=== PATIENT | male | born 1955 | race Caucasian/White ===

== ENCOUNTER 2024-12-02 22:02 | Inpatient (IN) | payer MEDICARE, SELFPAY ==
[2024-12-02 22:18] VITALS: BP 142/71; PULSE 118; RESP 18; TEMP 36.7; O2SAT 95
[2024-12-02 22:34] LABS: Add Urine Microscopic? YES; Appearance Urine Clear (Clear); Bilirubin Urine Negative (Negative); Blood Urine 3+ (Negative); Color Urine Brown (Yellow); Glucose Urine UA 3+ (Negative); Ketones Urine Trace (Negative); Leukocyte Esterase Ur Trace LEU/UL (Negative); Nitrate Urine Positive (Negative); Protein Urine 3+ (Negative); pH Urine 6.5 (5.0-8.0)
--- NOTE | 2024-12-02 22:39 | PC.NURSE ---
DR MILLAN AT THE BEDSIDE SPEAKING WITH SISTER FOR PLAN OF CARE.
[2024-12-02 22:43] LABS: Bacteria Urine 2+ /hpf; RBC Urine >75 /hpf (0-2); Squamous Epithelial Cell Urine None seen /hpf (Few); WBC Urine >75 /hpf (0-3)
--- NOTE | 2024-12-02 22:45 | PC.NURSE ---
FAMILY MEMBER IS GOING TO GO HOME AND LOOK FOR MEDICATION LIST THAT IS IN PATIENT BELONGINGS
[2024-12-02] MEDS: Please add drug allergy info to patient profile. 1 EACH XX (22:46)
[2024-12-02] MEDS: SODIUM CHLORIDE 0.9% IV 1,000 ML 999 ML IV CONT (22:50)
--- NOTE | 2024-12-02 22:51 | PC.NURSE ---
toothbrush and toothpaste provided
[2024-12-02 23:00] LABS: Basophils Absolute Auto 0.04 K/mm3 (0.00-0.10); Basophils Percent Auto 0.4 % (0.0-1.0); Eosinophils Absolute Auto 0.32 K/mm3 (0.02-0.50); Eosinophils Percent Auto 3.1 % (1.0-6.0); Hematocrit 39.6 % (37.0-46.0); Hemoglobin 12.8 g/dL (12.4-15.3); Immature Granulocyte Absolute 0.03 K/mm3 (0.00-0.00); Immature Granulocyte Percent A 0.3 % (0.0-0.0); Lymphocytes Absolute Auto 1.62 K/mm3 (1.10-4.50); Lymphocytes Percent Auto 15.5 % (18.0-42.0); Mean Corpuscular HGB Conc 32.3 g/dL (32-36); Mean Corpuscular Hemoglobin 27.9 pg (27.0-31.0); Mean Corpuscular Volume 86.5 fL (78.0-102.0); Mean Platelet Volume 9.5 fl (8.7-11.0); Monocytes Absolute Auto 0.77 K/mm3 (0.10-0.90); Monocytes Percent Auto 7.4 % (2.0-11.0); Neutrophils Absolute Auto 7.64 K/mm3 (1.70-7.20); Neutrophils Percent Auto 73.3 % (50.0-70.0); Platelet Count Result 388 K/mm3 (150-420); Red Blood Count 4.58 M/mm3 (4.70-6.10); Red Cell Distribution Width 12.8 % (11.6-14.4); White Blood Count 10.4 K/mm3 (4.8-10.8)
[2024-12-02 23:05] VITALS: BP 160/89; PULSE 116; RESP 20; O2SAT 98
[2024-12-02 23:06] VITALS: BP 160/89; O2SAT 97
--- NOTE | 2024-12-02 23:06 | PC.NURSE ---
PATIENTS FACE AND TOMLINSON WERE CLEANED BY CELESTINA RIGGS. PATIENT WAS ABLE TO BRUSH HIS TEETH WELL WITH VENKAT HELP
--- NOTE | 2024-12-02 23:14 | ED.SKABFB ---
HPI - Skin/Abscess/Foreign Bdy General Chief complaint: Skin/Abscess/Foreign Body Stated complaint: bed sore Source: patient, family and EMS Mode of arrival: EMS Limitations: physical limitation and clinical condition History of Present Illness HPI narrative: this is a 69-year-old male with a history of stroke with left-sided weakness that occurred back in August patient has been informed and was in rehab center and [address] and he decided to sign out AMA and drove directly from [place] to [place], family had prepared lift and a hospital bed I did not arrive to the family's home. Patient has left-sided weakness from his stroke that occurred in August has a decubitus ulcer on the sacral area that is I looks clean stage II with no tracking. Patient is afebrile with no nausea vomiting no abdominal pain no chest pain no shortness of breath. Patient has an indwelling Avendaño and had a foul smell wellness Avendaño bag was changed. MD complaint: other Onset (ago): month(s) Severity: moderate Related Data Home Medications Medication Instructions Recorded Confirmed Last Taken Type acetaminophen 325 mg capsule 650 mg PO Q4-6H PRN pain 12/02/24 Unknown History amlodipine 10 mg tablet 10 mg PO DAILY 12/02/24 Unknown History aspirin 81 mg chewable tablet 81 mg PO DAILY 12/02/24 Unknown History (Carli Chewable Low Dose Aspirin) atorvastatin 40 mg tablet (Lipitor) 40 mg PO HS 12/02/24 Unknown History clopidogrel 75 mg tablet 75 mg PO DAILY 12/02/24 Unknown History gabapentin 300 mg capsule 300 mg PO BID 12/02/24 Unknown History insulin glargine 100 unit/mL (3 10 unit subcut DAILY 12/02/24 Unknown History mL) subcutaneous pen (Lantus Solostar U-100 Insulin) insulin lispro 100 unit/mL 1 sliding scale dose subcut 12/02/24 Unknown History subcutaneous solution (Humalog USEASDIRECTD U-100 Insulin) lisinopril 20 mg tablet 20 mg PO BID 12/02/24 Unknown History multivitamin with minerals (DAILY 1 tablet PO DAILY 12/02/24 Unknown History VITAMIN FORMULA-MINERALS tablet) nicotine 14 mg/24 hr daily 1 patch transdermal DAILY 12/02/24 Unknown History transdermal patch sennosides 8.6 mg-docusate sodium 1 tab-cap PO BID PRN constipation 12/02/24 Unknown History 50 mg tablet tramadol 50 mg tablet 50 mg PO Q6-8H PRN pain 12/02/24 Unknown History Allergies Allergy/AdvReac Type Severity Reaction Status Date / Time TIDE POWDER Allergy Intermediate Hives Uncoded 12/02/24 22:43 Review of Systems Review of Systems: All systems reviewed & are unremarkable except as noted in HPI and below PMFSH Past Medical History Medical History CVA (cerebral vascular accident) HTN (hypertension) HLD (hyperlipidemia) Diabetes mellitus Exam Const: General: no acute distress Nutritional Appearance: well nourished Orientation/consciousness: patient oriented x3 Limitations: no limitations HENMT: Head: normal to inspection Eyes: Conjunctivae: conjunctivae normal Neck: Neck: normal visual inspection Chest: Chest palpation & inspection: normal inspection of the chest Resp: Effort & Inspection: normal respiratory effort Auscultation: clear to auscultation bilaterally Cardio: Rate: tachycardic Rhythm: regular rhythm GI: Auscultation: normal bowel sounds Rectal Exam: normal sphincter tone : General: Yes bladder normal to palpation Urinary Catheter: Urinary Catheter: urine cloudy and urine dark Back/Spine/Pelvis: Back: no CVA tenderness Skin: Other: stage II decubitus ulcer with some no redness or erythema no drainage. Neuro: General: patient oriented x3 Extrem: General: normal to inspection and no clubbing, cyanosis or edema Course Course Emergency Course: Patient had blood work performed with CBC of and white blood cell count 10.4 had a UA performed which shows 2+ bacteria and greater than 75,000 white cells with leukocytes consistent with UTI and will start the patient on IV Levaquin. Blood cultures obtained IV fluids started and patient will it be admitted for urinary tract infection and rn social work to consult for possible placement are hospital bed to be sent to patient's and family's home. Vital Signs Vital signs: Vital Signs Temperature 36.7 C 12/02/24 22:18 Pulse Rate 118 H 12/02/24 22:18 Respiratory Rate 18 12/02/24 22:18 Blood Pressure 142/71 H 12/02/24 22:18 Pulse Oximetry 95 12/02/24 22:18 Oxygen Delivery Room Air 12/02/24 22:18 Temperature 36.7 C 12/02/24 22:18 Pulse Rate 116 H 12/02/24 23:05 Respiratory Rate 20 12/02/24 23:05 Blood Pressure 160/89 H 12/02/24 23:05 Pulse Oximetry 98 12/02/24 23:05 Oxygen Delivery Room Air 12/02/24 23:05 MDM - Skin/Abscess/Foreign Bdy Lab Data 12/02/24 22:55 12/02/24 22:55 Labs: Lab Results 12/02/24 12/02/24 Range/Units 22:23 22:55 WBC 10.4 (4.8-10.8) K/mm3 RBC 4.58 L (4.70-6.10) M/mm3 Hgb 12.8 (12.4-15.3) g/dL Hct 39.6 (37.0-46.0) % MCV 86.5 (78.0-102.0) fL MCH 27.9 (27.0-31.0) pg MCHC 32.3 (32-36) g/dL RDW 12.8 (11.6-14.4) % Plt Count 388 (150-420) K/mm3 MPV 9.5 (8.7-11.0) fl Immature Gran % (Auto) 0.3 H (0.0-0.0) % Neut % (Auto) 73.3 H (50.0-70.0) % Lymph % (Auto) 15.5 L (18.0-42.0) % Edwards % (Auto) 7.4 (2.0-11.0) % Eos % (Auto) 3.1 (1.0-6.0) % Baso % (Auto) 0.4 (0.0-1.0) % Lymph # (Auto) 1.62 (1.10-4.50) K/mm3 Edwards # (Auto) 0.77 (0.10-0.90) K/mm3 Eos # (Auto) 0.32 (0.02-0.50) K/mm3 Baso # (Auto) 0.04 (0.00-0.10) K/mm3 Abs Immat Gran (auto) 0.03 H (0.00-0.00) K/mm3 Absolute Neuts (auto) 7.64 H (1.70-7.20) K/mm3 Absolute Nucleated RBC 0.00 (0.00-0.00) K/mm3 Nucleated RBC % 0.0 (0-0.0) % Sodium Pending Potassium Pending Chloride Pending Carbon Dioxide Pending Anion Gap Pending BUN Pending Creatinine Pending Estim Creat Clear Calc Pending Estimated GFR Pending Glucose Pending Calculated Osmolality Pending Lactic Acid Pending Calcium Pending Total Bilirubin Pending AST Pending ALT Pending Alkaline Phosphatase Pending Total Protein Pending Albumin Pending Urine Color Brown A (Yellow) Urine Appearance Clear (Clear) Urine pH 6.5 (5.0-8.0) Ur Specific [place] 1.020 (1.010-1.020) Urine Protein 3+ H (Negative) Urine Glucose (UA) 3+ H (Negative) Urine Ketones Trace H (Negative) Ur Blood (Man) 3+ H (Negative) Urine Nitrate Positive H (Negative) Urine Bilirubin Negative (Negative) Urine Urobilinogen 1.0 (0.2-1.0) mg/dL Leukocyte Esterase Rfl Trace H (Negative) JOAN/UL Urine RBC >75 H (0-2) /hpf Urine WBC >75 H (0-3) /hpf Ur Squamous Epith Cells None seen (Few) /hpf Urine Bacteria 2+ H (None) /hpf Critical Care Time Critical Care Time Critical Care Time: No Discharge Plan Discharge Clinical Impression: Decubitus ulcer, Diabetes mellitus, UTI (urinary tract infection), Acute CVA (cerebrovascular accident) Patient Disposition: Acute Care Hospital Condition: Guarded Prognosis Patient Language: Danish Prescriptions: No Action acetaminophen 325 mg capsule 650 mg PO Q4-6H PRN (Reason: pain) insulin lispro [Humalog U-100 Insulin] 100 unit/mL solution 1 sliding scale dose subcut USEASDIRECTD amlodipine 10 mg tablet 10 mg PO DAILY aspirin [Carli Chewable Aspirin] 81 mg tablet,chewable 81 mg PO DAILY atorvastatin [Lipitor] 40 mg tablet 40 mg PO HS insulin glargine [Lantus Solostar U-100 Insulin] 100 unit/mL (3 mL) insulin pen 10 unit subcut DAILY clopidogrel 75 mg tablet 75 mg PO DAILY gabapentin 300 mg capsule 300 mg PO BID lisinopril 20 mg tablet 20 mg PO BID DAILY VITAMIN FORMULA-MINERALS Tablet 1 tablet PO DAILY nicotine 14 mg/24 hr patch 24 hour 1 patch transdermal DAILY sennosides-docusate sodium 8.6-50 mg tablet 1 tab-cap PO BID PRN (Reason: constipation) tramadol 50 mg tablet 50 mg PO Q6-8H PRN (Reason: pain) Follow-up/Referrals: Emmanuel Graff DO [Primary Care Provider] -
[2024-12-02 23:15] LABS: Alanine Aminotransferase 17 U/L (6-50); Albumin Level 3.6 g/dL (3.5-5.1); Alkaline Phosphatase 139 U/L (38-126); Anion Gap 3 mmol/L (4-12); Aspartate Amino Transferase 26 U/L (17-59); Bilirubin,Total 0.5 mg/dL (0.2-1.3); Blood Urea Nitrogen 20 mg/dL (9-20); Calcium 9.6 mg/dL (8.4-10.2); Carbon Dioxide 29 mmol/L (22-30); Chloride 103 mmol/L (98-107); Estimated CRCL calculation 73 ml/min; Estimated Glomerular Filt Rate > 60; Glucose 388 mg/dL (65-110); Osmolality Calculated 298 mOsm/kg (285-295); Potassium 4.3 mmol/L (3.4-5.0); Sodium 135 mmol/L (137-145); Total Protein 6.9 g/dL (6.3-8.2)
[2024-12-02 23:19] LABS: Lactic Acid Reflex 2.8 mmol/L (0.4-2.0)
[2024-12-02] MEDS: levoFLOXacin 500 MG/D5W 100 ML 500 MG/100 ML BAG 100 MG IVPB (23:41)
[2024-12-02] MEDS: LIDOCAINE 2% GEL UROJET 10 ML PKG MUCOUS MEM (23:43)
[2024-12-03 00:02] VITALS: BP 151/88; PULSE 117; RESP 20; O2SAT 97
[2024-12-03 00:05] VITALS: BMI 26.6
--- NOTE | 2024-12-03 00:05 | PC.NURSE ---
PATIENT HAD 3 WAY, 24F ARCHU[address]TA IN PLACE THAT PATIENT HAS BEEN SINCE AUGUST OF THIS YEAR. ARCHULETA CATHETER REMOVED AND NEW CATHETER PLACED
[2024-12-03 00:16] VITALS: BP 133/75; PULSE 117; RESP 16; O2SAT 95
[2024-12-03 00:31] VITALS: BP 141/79; PULSE 108; RESP 18; O2SAT 97
[2024-12-03 00:40] LABS: Reflex Lactic Acid Yes or No No Lactic Reflex
[2024-12-03 00:46] VITALS: BP 141/79; PULSE 108; RESP 18; O2SAT 97
[2024-12-03] MEDS: NICOTINE (*PBKC) 14 MG PATCH 1 PATCH TRANSDERM ×2 (01:17→09:29)
[2024-12-03] MEDS: SODIUM CHLORIDE 0.9% IV 1,000 ML 100 ML IV CONT ×3 (01:17→21:20)
--- NOTE | 2024-12-03 01:33 | ADMGEN ---
This patient, José Hargrove, was admitted to 2nd Floor Room 207-2. Patient/family oriented to hospital policies and general routines including ID bracelet, bed and alarms, visiting hours, pain management, procedures, bathroom and other care routines, personal items, smoking policy, room service/diet, and visiting hours. Information on how to activate the Rapid Response Team has been discussed. Patient/Family are encouraged to report perceived risks to care and to ask questions if they do not understand what they are told or what they should do.
--- NOTE | 2024-12-03 02:28 | PC.NURSE ---
Original weight is from ER where patient stated his weight and admission weight is from built in bed scale.
[2024-12-03 05:34] LABS: Basophils Absolute Auto 0.02 K/mm3 (0.00-0.10); Basophils Percent Auto 0.2 % (0.0-1.0); Eosinophils Absolute Auto 0.49 K/mm3 (0.02-0.50); Eosinophils Percent Auto 4.9 % (1.0-6.0); Hematocrit 35.4 % (37.0-46.0); Hemoglobin 11.4 g/dL (12.4-15.3); Immature Granulocyte Absolute 0.03 K/mm3 (0.00-0.00); Immature Granulocyte Percent A 0.3 % (0.0-0.0); Lymphocytes Absolute Auto 1.88 K/mm3 (1.10-4.50); Lymphocytes Percent Auto 18.7 % (18.0-42.0); Mean Corpuscular HGB Conc 32.2 g/dL (32-36); Mean Corpuscular Hemoglobin 27.9 pg (27.0-31.0); Mean Corpuscular Volume 86.8 fL (78.0-102.0); Mean Platelet Volume 9.2 fl (8.7-11.0); Monocytes Absolute Auto 0.83 K/mm3 (0.10-0.90); Monocytes Percent Auto 8.3 % (2.0-11.0); Neutrophils Percent Auto 67.6 % (50.0-70.0); Platelet Count Result 339 K/mm3 (150-420); Red Blood Count 4.08 M/mm3 (4.70-6.10); Red Cell Distribution Width 12.7 % (11.6-14.4); White Blood Count 10.1 K/mm3 (4.8-10.8)
[2024-12-03 05:51] LABS: Alanine Aminotransferase 11 U/L (6-50); Albumin Level 3.1 g/dL (3.5-5.1); Alkaline Phosphatase 111 U/L (38-126); Anion Gap 2 mmol/L (4-12); Aspartate Amino Transferase 20 U/L (17-59); Bilirubin,Total 0.4 mg/dL (0.2-1.3); Blood Urea Nitrogen 16 mg/dL (9-20); Calcium 9.4 mg/dL (8.4-10.2); Carbon Dioxide 29 mmol/L (22-30); Chloride 106 mmol/L (98-107); Estimated CRCL calculation 67 ml/min; Estimated Glomerular Filt Rate > 60; Glucose 248 mg/dL (65-110); Osmolality Calculated 293 mOsm/kg (285-295); Potassium 4.4 mmol/L (3.4-5.0); Sodium 137 mmol/L (137-145); Total Protein 6.2 g/dL (6.3-8.2)
[2024-12-03 05:53] LABS: Lactic Acid Reflex 1.6 mmol/L (0.4-2.0)
[2024-12-03 08:00] VITALS: BP 117/60; PULSE 103; RESP 16; TEMP 36.9; O2SAT 95
--- NOTE | 2024-12-03 08:30 | PC.NURSE ---
While attempting to obtain a urine specimen from azul catheter, catheter began to slip out of penis. Azul catheter was advanced into place. The bulb was checked for fluid and there was none to be aspirated. The bulb was then filled with 10 cc of normal saline and attempt was made to remove the saline. No saline was able to be aspirated. The azul catheter was then removed and replaced with a three way 24 fr azul catheter. After new catheter, azul was patent and draining. Urine sample obtained and sent to lab.
[2024-12-03] MEDS: lisinopriL 20 MG TABLET PO ×2 (09:25→20:09)
[2024-12-03] MEDS: GABAPENTIN 300 MG CAPSULE PO (09:25)
[2024-12-03] MEDS: ASPIRIN 81 MG CHEWABLE TABLET PO (09:26)
[2024-12-03] MEDS: THERAPEUTIC MULTIVITAMINS/MINERALS TAB (*BKC) 1 TABLET PO (09:26)
[2024-12-03] MEDS: CLOPIDOGREL BISULFATE 75 MG TABLET PO (09:26)
[2024-12-03] MEDS: amLODIPine BESYLATE 5 MG TABLET 10 MG PO (09:27)
[2024-12-03] MEDS: INSULIN HUMAN LISPRO (*BKC) 1,000 UNITS/10 ML VIAL SUB-Q ×2 (09:28→12:54)
[2024-12-03] MEDS: INSULIN GLARGINE (*BKC) 1,000 UNITS/10 ML VIAL 10 UNITS SUB-Q (09:28)
--- OUTSIDE RECORDS SUMMARY | 2024-12-03 09:49 | XMS_ITS | Continuity of Care Document ---
Author Name [facility] Organization [facility] Care Team Providers Care Construction Controller Name Role Phone [facility] Unavailable Unavailable Problems Combined list of problems from Department of [facility] and [facility] facilities. It does not include entries that were removed or entered in error. 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 [facility] Obesity (SNOMED CT 493364200) Active Condition [facility] Refractive error Active Condition [facility] Tear film insufficiency Active Condition [facility] Tobacco use (SNOMED CT 940063593) Active Condition Apr 07, 2020 Entered By: ASHLEIGH DANG Comment: 30+ pack year smoker, switched to vaping January 2020 [facility] Hyperglycemia * (ICD-9-CM 790.29) Inactive Condition 12/08/2015 [facility] Mechanical low back pain Inactive Condition 12/08/2015 [facility] Other and unspecified hyperlipidemia (ICD-9-CM 272.4) Inactive Condition 12/08/2015 [facility] Allergies, Adverse Reactions, Alerts Combined list of allergies from Department of [facility] and [facility] facilities. It does not include entries that were removed or entered in error. Substance Category Reaction Severity Reaction type Status Date Reported Comments Source METFORMIN Propensity to adverse reactions to drug (finding) Indigestion active 2 [facility] [place] TIDE LAUNDRY DETERGENT Propensity to adverse reaction (finding) Urticaria active 2 [facility] [place] Immunizations Combined list of available immunizations from the Department of Defense and Veterans Affairs facilities. Immunization Series Date Given Administered By Site Reaction Lot Number CVX Code Drug Assembler Gold Frame Status Comments Source PNEUMOCOCCAL POLYSACCHARID E PPV23 2014 33 complet [facility] PNEUMOCOCCAL, UNSPECIFIED FORMULATION 2014 109 complet [facility] FLU,3 YRS (HISTORICAL) 2013 88 complet [facility] TD(ADULT) UNSPECIFIED FORMULATION 2011 139 complet [facility] Encounters Combined list of: 1) Encounters from Department of Veterans Affairs facilities going backup to the last 18 months, not all [place] inpatient encounters are included; 2) Encounters from the Department of [facility] facilities going backup to 280 months. Location Location Details Encounter Type Encounter Number Reason For Visit Attending Provider ADM Date DC Date Status Disposition Source [facility] Outpatient Encounter [id number] 08/17 [facility] Outpatient Encounter [id number] 08/27 [facility] Outpatient Encounter [id number] 10/01 [facility] Outpatient Encounter [id number] Dimple ONEILL 10/04 [facility] Outpatient Encounter [id number] 10/04 [facility] Social History Combined list of available smoking, tobacco, and other social history from Department of Defense and Veterans Affairs facilities. Social History Type Response Date Comment Sourc e Tobacco smoking status NHIS [facility]-VAAES TOBACCO USE CURRENT NRT ACCEPT 08/11/2021 [facility] 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
--- NOTE | 2024-12-03 09:50 | P.HP_ITS ---
H&P: HPI History of Present Illness Date/Time: 12/03/24 09:50 Chief Complaint: Chronic indwelling Avendaño catheter malfunction/ sacral wounds Narrative: Patient is a 61-year-old male who presented to [facility] emergency department via family with complaints of malfunction of his Avendaño catheter as well as sacral wounds and inability to care for patient at home. Per patient he was residing in [place] at a long term and rehab after he sustained a acute CVA causing his left side to be flaccid as well as urinary complications at which time he also developed a sacral wound due to being bed-bound. Per report from patient his sister initially had plan to have him stay with her but when attempting to get a medical bed with trapeze and medical equipment she was unsuccessful. family had went to [place] and signed patient out AMA from the rehab facility and brought him back up to [facility] once they brought him back to their home they found that could not care for him and he was brought to the em ergency department. patient's initial labs unremarkable however was found to have an odorous, cloudy with clots noted in his Avendaño catheter and UA was suspicious for urinary tract infection. sacral wound had clean borders with granulation no signs of acute infection patient afebrile and normal WBC. Avendaño catheter was exchanged on stairs and patient was admitted to the medical unit for further evaluation and treatment. patient reports past medical history of CVA, hypertension and diabetes. patient denied any chest pain shortness a breath, nausea, vomiting, abdominal pain, visual changes but did report moderate pain to left side and sacral area. Review of Systems Review of Systems: All systems reviewed & are unremarkable except as noted in HPI and below PMFSH Past Medical History Medical History CVA (cerebral vascular accident) HTN (hypertension) HLD (hyperlipidemia) Diabetes mellitus Family History Family History Other Unknown family medical history Social History Social History Years smoked: 50 Smoking status: Current every day smoker Tobacco type: cigarettes Alcohol intake: former Substance use: never Substance use type: does not use Do You Feel Safe in your Home?: Yes Lack of Transportation: No Lack of Food: Sometimes True Current Housing: I Have Housing Concerned About Future Housing: No Difficulty Paying Gas/Electric Bills: No Difficulty Paying for Meds: No Currently Unemployed: No Education: High School Diploma/GED Difficulty w/ Childcare or Family Care: No Spiritual care concerns: No Meds Home Medications and Allergies Home Medications Medication Instructions Recorded Confirmed Type acetaminophen 325 mg capsule 650 mg PO Q4-6H PRN pain 12/02/24 12/03/24 History amlodipine 10 mg tablet 10 mg PO DAILY 12/02/24 12/03/24 History aspirin 81 mg chewable tablet 81 mg PO DAILY 12/02/24 12/03/24 History (Carli Chewable Low Dose Aspirin) atorvastatin 40 mg tablet (Lipitor) 40 mg PO HS 12/02/24 12/03/24 History clopidogrel 75 mg tablet 75 mg PO DAILY 12/02/24 12/03/24 History gabapentin 300 mg capsule 300 mg PO BID 12/02/24 12/03/24 History insulin glargine 100 unit/mL (3 10 unit subcut DAILY 12/02/24 12/03/24 History mL) subcutaneous pen (Lantus Solostar U-100 Insulin) insulin lispro 100 unit/mL 1 sliding scale dose subcut 12/02/24 12/03/24 History subcutaneous solution (Humalog USEASDIRECTD U-100 Insulin) lisinopril 20 mg tablet 20 mg PO BID 12/02/24 12/03/24 History multivitamin with minerals (DAILY 1 tablet PO DAILY 12/02/24 12/03/24 History VITAMIN FORMULA-MINERALS tablet) nicotine 14 mg/24 hr daily 1 patch transdermal DAILY 12/02/24 12/03/24 History transdermal patch sennosides 8.6 mg-docusate sodium 1 tab-cap PO BID PRN constipation 12/02/24 12/03/24 History 50 mg tablet tramadol 50 mg tablet 50 mg PO Q6-8H PRN pain 12/02/24 12/03/24 History Allergies Allergy/AdvReac Type Severity Reaction Status Date / Time TIDE POWDER Allergy Intermediate Hives Uncoded 12/02/24 22:43 Vital Signs Vital Signs - 24 hr 12/02/24 22:18 12/02/24 23:05 12/02/24 23:06 Temperature 98.0 F Pulse Rate 118 H 116 H Respiratory Rate 18 20 Blood Pressure 142/71 H 160/89 H 160/89 H Pulse Oximetry 95 98 97 Oxygen Delivery Room Air Room Air 12/03/24 00:02 12/03/24 00:16 12/03/24 00:31 Temperature Pulse Rate 117 H 117 H 108 H Respiratory Rate 20 16 18 Blood Pressure 151/88 H 133/75 141/79 H Pulse Oximetry 97 95 97 Oxygen Delivery Room Air Room Air Room Air 12/03/24 00:46 Temperature Pulse Rate 108 H Respiratory Rate 18 Blood Pressure 141/79 H Pulse Oximetry 97 Oxygen Delivery Room Air Exam Const: General: comfortable and no acute distress HENMT: Ears: TM's normal bilaterally Face/Nose/Sinus: Normal nares present Mouth: Yes moist mucous membranes Eyes: General: appearance normal, both eyes and all related structures Sclera: sclerae normal Pupils: Equal, round and reactive pupils present EOM: EOMs intact bilaterally Neck: Neck: supple and no JVD Resp: Effort & Inspection: normal respiratory effort Auscultation: clear to auscultation bilaterally Cardio: Rate: regular rate GI: GI Palp: Yes Soft to palpation Auscultation: normal bowel sounds : General: Yes bladder normal to palpation Urinary Catheter: Urinary Catheter: urine cloudy, urine red and urine with clots Skin: General skin exam: normal color Wounds: no wounds Neuro: Speech: normal speech Motor exam (neuro): Abnormal motor strength present Other: patient with left-sided weakness to lower extremity and flaccid left arm post CVA Extrem: General: normal to inspection Psych: Mental Status: mental status grossly normal Affect: normal affect H&P: Results Labs Labs: Short CBC 12/02/24 12/03/24 Range/Units 22:55 05:30 WBC 10.4 10.1 (4.8-10.8) K/mm3 Hgb 12.8 11.4 L (12.4-15.3) g/dL Hct 39.6 35.4 L (37.0-46.0) % Plt Count 388 339 (150-420) K/mm3 [facility] 12/02/24 12/03/24 22:55 05:30 Sodium 135 L 137 Potassium 4.3 4.4 Chloride 103 106 Carbon Dioxide 29 29 BUN 20 16 Creatinine 1.08 1.03 Glucose 388 H 248 H Calcium 9.6 9.4 Liver Function 12/02/24 12/03/24 Range/Units 22:55 05:30 Total Bilirubin 0.5 0.4 (0.2-1.3) mg/dL AST 26 20 (17-59) U/L ALT 17 11 (6-50) U/L Alkaline Phosphatase 139 H 111 (38-126) U/L Albumin 3.6 3.1 L (3.5-5.1) g/dL Urine 12/02/24 Range/Units 22:23 Urine Color Brown A (Yellow) Urine Appearance Clear (Clear) Urine pH 6.5 (5.0-8.0) Ur Specific [place] 1.020 (1.010-1.020) Urine Protein 3+ H (Negative) Urine Glucose (UA) 3+ H (Negative) Assessment and Plan Assessment and plan (1) UTI (urinary tract infection): Qualifiers: Encounter type: subsequent encounter Indwelling urinary catheter type: indwelling urethral catheter Urinary tract infection type: catheter-associated UTI Qualified Code(s): T83.511D - Infection and inflammatory reaction due to indwelling urethral catheter, subsequent encounter; N39.0 - Urinary tract infection, site not specified Code(s): N39.0 - Urinary tract infection, site not specified Status: Acute Assessment and Plan: patient with chronic indwelling Avendaño catheter on arrival was cloudy with clots hematuria, and odorous smell patient reports not been changed since August. Initial Avendaño exchange done in the emergency department but was still leaking around catheter replaced with a 24 [place]i three-way will need intermittent flushing to clear clots. no previous urinalysis evaluation * urine showed brown in color 3+ protein 3+ glucose 3+ blood nitrate positive, trace leukocyte greater than 75 WBC and 2+ bacteria * received dose of Levaquin in the ED * switch patient to Rocephin IV at this time pending cultures and sensitivities * blood cultures pending * Will need new Urologist at discharge (2) Decubitus ulcer: Qualifiers: Laterality: unspecified laterality Pressure injury location: buttock Pressure injury stage: stage 2 Qualified Code(s): L89.302 - Pressure ulcer of unspecified buttock, stage 2 Code(s): L89.90 - Pressure ulcer of unspecified site, unspecified stage Status: Acute Assessment and Plan: patient with stage II decubitus ulcer good granulation does not appear to be infected * Q 2 turns, offloading * alleyevn pad change daily or when soiled * wound consult was placed however we do not have wound and house will need to make an appointment at the outside Wound Clinic * blood sugar control for wound healing * Pain control (3) CVA (cerebral vascular accident): Code(s): I63.9 - Cerebral infarction, unspecified Status: Acute Assessment and Plan: patient suffered a acute CVA in August causing left-sided lower extremity weakness and flaccid left upper arm he states he has been bed-bound since then * continued ASA, Plavix, statin (4) HTN (hypertension): Code(s): I10 - Essential (primary) hypertension Status: Acute Assessment and Plan: * continue patient's amlodipine and lisinopril * monitor BP per unit protocol (5) HLD (hyperlipidemia): Code(s): E78.5 - Hyperlipidemia, unspecified Status: Acute Assessment and Plan: * resume atorvastatin (6) Diabetes mellitus: Code(s): E11.9 - Type 2 diabetes mellitus without complications Status: Acute Assessment and Plan: * continue patient's 10 unit long-acting insulin * moderate SSI * Accu-Cheks a.c. HS * hypoglycemic protocol * diabetic diet Plan Code status: Full code per patient DVT prophylaxis: SCD's Stress ulcer prophylaxis: Protonix 40 daily PT/OT notes: PT/OT for placement Disposition: patient continues admission to the medical unit for further evaluation and treatment of urinary tract infection and sacral wound PT/OT has been ordered care coordination assisting with long-term placement PT OT pending. Quality VTE Prophylaxis VTE prophylaxis: mechanical ordered -Patient's previous records reviewed on admission -ER notes reviewed in detail on admission -discussed all findings and current treatment plan with patient/Family/POA -Consultations reviewed for recommendations -Patient's disposition for safe discharge discussed with case filler Dictation performed by [employer] direct speech recognition software, therefore mounted police officer variants and typographical errors may occur. Hospitalist MIPS Advance Care Plan I have confirmed that the patient's Advanced Care Plan is present, code status is documented, or surrogate decision maker is listed in patient medical record.: Yes Medication Reconciliation I have utilized all available resources to obtain, update and review the patients current medications (includes all prescriptions, OTC, herbals, cannabis, and nutritional supplements).: Yes The patient is not eligible for med reconciliation; the patient is in a emergent medical situation where delaying treatment would jeopardize the patients health.: No
[2024-12-03 11:09] LABS: Add Urine Microscopic? YES; Appearance Urine Cloudy (Clear); Bilirubin Urine Negative (Negative); Blood Urine 3+ (Negative); Color Urine Brown (Yellow); Glucose Urine UA 3+ (Negative); Ketones Urine Negative (Negative); Leukocyte Esterase Ur 1+ LEU/UL (Negative); Nitrate Urine Negative (Negative); Protein Urine 2+ (Negative); Specific Grav Ur 1.025 (1.010-1.020); Urobilinogen Urine 0.2 mg/dL (0.2-1.0); pH Urine 5.5 (5.0-8.0)
[2024-12-03 11:17] LABS: Bacteria Urine 1+ /hpf; RBC Urine >100 /hpf (0-2); Squamous Epithelial Cell Urine Few /hpf (Few); WBC Urine 21-30 /hpf (0-3)
[2024-12-03 11:55] LABS: Glucose Point of Care 236 mg/dl (65-105)
[2024-12-03 16:00] VITALS: BP 150/72; PULSE 78; RESP 17; TEMP 36.7; O2SAT 97
[2024-12-03 17:06] LABS: Glucose Point of Care 190 mg/dl (65-105)
[2024-12-03] MEDS: ATORVASTATIN 40 MG TABLET PO (20:09)
[2024-12-03] MEDS: traMADol HCL (*CRX) 50 MG TABLET PO (20:09)
[2024-12-03 20:12] LABS: Glucose Point of Care 129 mg/dl (65-105)
--- NOTE | 2024-12-03 20:14 | PC.NURSE ---
PATIENT WAS REPOSITIONED FOR COMFORT FROM HIS RIGHT SIDE TO HIS BACK. CALL LIGHT IN REACH
--- NOTE | 2024-12-03 21:58 | PC.NURSE ---
PATIENT REPOSITIONED TO HIS LEFT SIDE. DENIES ANY NEEDS. CALL LIGHT IN REACH
[2024-12-04] VITALS: BP 129/71; PULSE 79; RESP 16; TEMP 36.3; O2SAT 97
[2024-12-04 05:26] LABS: Hematocrit 35.2 % (37.0-46.0); Hemoglobin 11.1 g/dL (12.4-15.3); Mean Corpuscular HGB Conc 31.5 g/dL (32-36); Mean Corpuscular Hemoglobin 27.8 pg (27.0-31.0); Mean Corpuscular Volume 88.2 fL (78.0-102.0); Mean Platelet Volume 9.5 fl (8.7-11.0); Platelet Count Result 316 K/mm3 (150-420); Red Blood Count 3.99 M/mm3 (4.70-6.10); White Blood Count 6.9 K/mm3 (4.8-10.8)
[2024-12-04 05:40] LABS: Alanine Aminotransferase 9 U/L (6-50); Albumin Level 2.8 g/dL (3.5-5.1); Alkaline Phosphatase 96 U/L (38-126); Anion Gap -1 mmol/L (4-12); Aspartate Amino Transferase 19 U/L (17-59); Bilirubin,Total 0.5 mg/dL (0.2-1.3); Blood Urea Nitrogen 11 mg/dL (9-20); Calcium 9.1 mg/dL (8.4-10.2); Carbon Dioxide 28 mmol/L (22-30); Chloride 109 mmol/L (98-107); Estimated CRCL calculation 76 ml/min; Estimated Glomerular Filt Rate > 60; Glucose 114 mg/dL (65-110); Osmolality Calculated 282 mOsm/kg (285-295); Potassium 3.8 mmol/L (3.4-5.0); Sodium 136 mmol/L (137-145); Total Protein 5.7 g/dL (6.3-8.2)
[2024-12-04] MEDS: SODIUM CHLORIDE 0.9% IV 1,000 ML 100 ML IV CONT ×2 (06:27→16:25)
[2024-12-04 08:00] VITALS: BP 154/67; PULSE 96; RESP 18; TEMP 36.6; O2SAT 97
[2024-12-04] MEDS: GABAPENTIN 300 MG CAPSULE PO ×2 (08:57→16:27)
[2024-12-04] MEDS: NICOTINE (*PBKC) 14 MG PATCH 1 PATCH TRANSDERM (08:57)
[2024-12-04] MEDS: lisinopriL 20 MG TABLET PO ×2 (08:58→20:55)
[2024-12-04] MEDS: amLODIPine BESYLATE 5 MG TABLET 10 MG PO (08:58)
[2024-12-04] MEDS: DOCUSATE SODIUM 100 MG CAPSULE PO (08:58)
[2024-12-04] MEDS: ASPIRIN 81 MG CHEWABLE TABLET PO (08:58)
[2024-12-04] MEDS: CLOPIDOGREL BISULFATE 75 MG TABLET PO (08:58)
[2024-12-04] MEDS: THERAPEUTIC MULTIVITAMINS/MINERALS TAB (*BKC) 1 TABLET PO (09:12)
[2024-12-04] MEDS: INSULIN GLARGINE (*BKC) 1,000 UNITS/10 ML VIAL 10 UNITS SUB-Q (09:12)
--- NOTE | 2024-12-04 11:32 | P.PNIM_ITS ---
Progress Note: A&P Assessment and Plan (1) UTI (urinary tract infection): Qualifiers: Encounter type: subsequent encounter Indwelling urinary catheter type: indwelling urethral catheter Urinary tract infection type: catheter-associated UTI Qualified Code(s): T83.511D - Infection and inflammatory reaction due to indwelling urethral catheter, subsequent encounter; N39.0 - Urinary tract infection, site not specified Code(s): N39.0 - Urinary tract infection, site not specified Status: Acute Assessment and Plan: patient with chronic indwelling Avendaño catheter on arrival was cloudy with clots hematuria, and odorous smell patient reports not been changed since August. Initial Avendaño exchange done in the emergency department but was still leaking around catheter replaced with a 24 Lithuanian three-way will need intermittent flushing to clear clots. no previous urinalysis evaluation * urine showed brown in color 3+ protein 3+ glucose 3+ blood nitrate positive, trace leukocyte greater than 75 WBC and 2+ bacteria * received dose of Levaquin in the ED * switch patient to Rocephin IV at this time pending cultures and sensitivities * blood cultures pending * Will need new Urologist at discharge (2) Decubitus ulcer: Qualifiers: Laterality: unspecified laterality Pressure injury location: buttock Pressure injury stage: stage 2 Qualified Code(s): L89.302 - Pressure ulcer of unspecified buttock, stage 2 Code(s): L89.90 - Pressure ulcer of unspecified site, unspecified stage Status: Acute Assessment and Plan: patient with stage II decubitus ulcer good granulation does not appear to be infected * Q 2 turns, offloading * alleyevn pad change daily or when soiled * wound consult was placed however we do not have wound and house will need to make an appointment at the outside Wound Clinic * blood sugar control for wound healing * Pain control (3) CVA (cerebral vascular accident): Code(s): I63.9 - Cerebral infarction, unspecified Status: Acute Assessment and Plan: patient suffered a acute CVA in August causing left-sided lower extremity weakness and flaccid left upper arm he states he has been bed-bound since then * continued ASA, Plavix, statin (4) HTN (hypertension): Code(s): I10 - Essential (primary) hypertension Status: Acute Assessment and Plan: * continue patient's amlodipine and lisinopril * monitor BP per unit protocol (5) HLD (hyperlipidemia): Code(s): E78.5 - Hyperlipidemia, unspecified Status: Acute Assessment and Plan: * resume atorvastatin (6) Diabetes mellitus: Code(s): E11.9 - Type 2 diabetes mellitus without complications Status: Acute Assessment and Plan: * continue patient's 10 unit long-acting insulin * moderate SSI * Accu-Cheks a.c. HS * hypoglycemic protocol * diabetic diet Plan Code status: Full code per patient DVT prophylaxis: SCD's Stress ulcer prophylaxis: Protonix 40 daily PT/OT notes: PT/OT for placement Disposition: patient continues admission to the medical unit for further evaluation and treatment of urinary tract infection and sacral wound PT/OT has been ordered care coordination assisting with long-term placement PT OT pending. Patient could benefit from core training and being taught how to use a trapezes. Subjective Date/time seen: 12/04/24 11:32 Interval history: Patient is not having any pain left side remain flaccid . family would like to take patient home although he is need of core training and possible being taught to pull homself . Exam Const: General: comfortable, no acute distress and well nourished Nutritional Appearance: well nourished Orientation/consciousness: patient oriented x3 Limitations: no limitations HENMT: Head: normal to inspection Ears: TM's normal bilaterally Face/Nose/Sinus: Normal nares present Mouth: Yes moist mucous membranes Eyes: General: appearance normal, both eyes and all related structures Conjunctivae: conjunctivae normal Sclera: sclerae normal Pupils: Equal, round and reactive pupils present EOM: EOMs intact bilaterally Neck: Neck: normal visual inspection, supple and no JVD Chest: Chest palpation & inspection: normal inspection of the chest Resp: Effort & Inspection: normal respiratory effort Auscultation: clear to auscultation bilaterally Cardio: Rate: regular rate and tachycardic Rhythm: regular rhythm GI: Auscultation: normal bowel sounds Rectal Exam: normal sphincter tone : General: Yes bladder normal to palpation and Yes no CVA tenderness Other: Avendaño catheter Urinary Catheter: Urinary Catheter: urine cloudy, urine red and urine with clots Back/Spine/Pelvis: Back: no CVA tenderness Skin: General skin exam: normal color Wounds: no wounds Other: stage II decubitus ulcer with some no redness or erythema no drainage. Neuro: General: patient oriented x3 Cranial nerves: Yes Equal, round and reactive pupils present Speech: normal speech Motor exam (neuro): Abnormal motor strength present Other: patient with left-sided weakness to lower extremity and flaccid left arm post CVA Extrem: General: normal to inspection and no clubbing, cyanosis or edema Psych: Mental Status: mental status grossly normal Affect: normal affect Objective Data Vital Signs Vital Signs: Vital Signs - 24 hr 12/03/24 16:00 12/04/24 00:00 12/04/24 08:00 Temperature 98.1 F 97.4 F L 97.9 F Pulse Rate 78 79 96 Respiratory Rate 17 16 18 Blood Pressure 150/72 H 129/71 154/67 H Pulse Oximetry 97 97 97 Oxygen Delivery Room Air Room Air Room Air Intake/Output Intake/Output: Intake & Output 12/01/24 12/02/24 12/03/24 12/04/24 23:59 23:59 23:59 23:59 Intake Total 3868.3 1580.0 Output Total 850 650 Balance 3018.3 930.0 Meds/Results Medications: Active Medications Generic Name Dose Route Start Last Admin Trade Name Freq PRN Reason Stop Dose Admin Acetaminophen 650 mg 12/02/24 23:28 Acetaminophen 325 Mg Tablet PO Q4-6H PRN pain 1-3 Amlodipine Besylate 10 mg 12/03/24 09:00 12/04/24 08:58 Amlodipine Besylate 5 Mg Tablet PO 10 mg DAILY MORALES Administration Aspirin 81 mg 12/03/24 08:00 12/04/24 08:58 Aspirin 81 Mg Chewable Tablet PO 81 mg DAILY@0800 MORALES Administration Atorvastatin Calcium 40 mg 12/03/24 21:00 12/03/24 20:09 Atorvastatin 40 Mg Tablet PO 40 mg HS MORALES Administration Clopidogrel Bisulfate 75 mg 12/03/24 09:00 12/04/24 08:58 Clopidogrel Bisulfate 75 Mg Tablet PO 75 mg DAILY MORALES Administration Dextrose 12.5 gm 12/02/24 23:28 Dextrose 50% 25 Gm/50 Ml Syringe IV PUSH PRN PRN Hypoglycemia Protocol Docusate Sodium 100 mg 12/03/24 09:00 12/04/24 08:58 Docusate Sodium 100 Mg Capsule PO 100 mg BID MORALES Administration Gabapentin 300 mg 12/03/24 09:00 12/04/24 08:57 Gabapentin 300 Mg Capsule PO 300 mg BID MORALES Administration Glucagon 1 mg 12/02/24 23:28 Glucagon For Inj 1 Mg Vial IM PRN PRN Hypoglycemia Protocol Glucose 15 gm 12/02/24 23:28 Glucose Oral Gel 15 Gm Of Glucse In 37.5 Gm Tube PO PRN PRN Hypoglycemia Protocol Sodium Chloride 1,000 mls @ 100 mls/hr 12/02/24 23:25 12/04/24 06:27 Normal Saline Iv IV CONT 100 mls/hr .Q10H MORLAES Administration Dextrose 1,000 mls @ 100 mls/hr 12/02/24 23:28 Dextrose 5% 1,000 Ml IVPB PRN PRN Hypoglycemia Protocol Ceftriaxone Sodium 1 gm in 50 mls @ 100 mls/hr 12/03/24 08:00 12/04/24 09:27 Rocephin 1 Gm/Ns 50 Ml IVPB Infused Q24H MORALES Infusion Insulin Glargine 10 units 12/03/24 09:00 12/04/24 09:12 Insulin Glargine (*Bkc) 1,000 Units/10 Ml Vial SUB-Q 10 units DAILY MORALES Administration Insulin Human Lispro 3 - 6 units 12/03/24 08:00 12/04/24 08:00 Insulin Human Lispro (*Bkc) 1,000 Units/10 Ml Vial SUB-Q Not Given [facility] Protocol Lisinopril 20 mg 12/03/24 09:00 12/04/24 08:58 Lisinopril 20 Mg Tablet PO 20 mg Q12HR MORALES Administration Magnesium Hydroxide 30 ml 12/02/24 23:24 Magnesium Hydroxide Susp 30 Ml Udc PO DAILY PRN Constipation Morphine Sulfate 2 mg 12/02/24 23:24 Morphine Sulfate (*Crx) 2 Mg/Ml Inj IV PUSH Q4H PRN Pain Rated 7-10 Multivitamins/Calcium 1 tablet 12/03/24 09:00 12/04/24 09:12 Therapeutic Multivitamins/Minerals Tab (*Bkc) PO 1 tablet DAILY MORALES Administration Naloxone HCl 0.1 mg 12/02/24 23:24 Naloxone Hcl 0.4 Mg/Ml Vial IV PUSH Q2M PRN Opiate Reversal Nicotine 1 patch 12/02/24 23:35 12/04/24 08:57 Nicotine (*Pbkc) 14 Mg Patch TRANSDERM 1 patch DAILY MORALES Administration Ondansetron HCl 4 mg 12/03/24 08:03 Ondansetron Inj 4 Mg/2 Ml Vial IV PUSH Q6H PRN Nausea And Vomiting Senna/Docusate Sodium 1 tab 12/02/24 23:28 Senna/Docusate Sodium Tablet PO BID PRN constipation Tramadol HCl 50 mg 12/02/24 23:28 12/03/24 20:09 Tramadol Hcl (*Crx) 50 Mg Tablet PO 50 mg Q6-8H PRN Administration pain 4-6 Labs Labs: Laboratory Results - last 24 hr 12/03/24 12/03/24 12/03/24 11:54 16:59 20:06 WBC RBC Hgb Hct MCV MCH MCHC RDW Plt Count MPV Sodium Potassium Chloride Carbon Dioxide Anion Gap BUN Creatinine Estim Creat Clear Calc Estimated GFR Glucose POC Capillary Glucose 236 H 190 H 129 H Calculated Osmolality Calcium Total Bilirubin AST ALT Alkaline Phosphatase Total Protein Albumin 12/04/24 05:16 WBC 6.9 RBC 3.99 L Hgb 11.1 L Hct 35.2 L MCV 88.2 MCH 27.8 MCHC 31.5 L RDW 13.0 Plt Count 316 MPV 9.5 Sodium 136 L Potassium 3.8 Chloride 109 H Carbon Dioxide 28 Anion Gap -1 L BUN 11 D Creatinine 0.89 Estim Creat Clear Calc 76 Estimated GFR > 60 Glucose 114 H POC Capillary Glucose Calculated Osmolality 282 L Calcium 9.1 Total Bilirubin 0.5 AST 19 ALT 9 Alkaline Phosphatase 96 Total Protein 5.7 L Albumin 2.8 L
[2024-12-04 12:13] LABS: Glucose Point of Care 209 mg/dl (65-105)
[2024-12-04] MEDS: INSULIN HUMAN LISPRO (*BKC) 1,000 UNITS/10 ML VIAL SUB-Q (12:20)
[2024-12-04 16:00] VITALS: BP 145/87; PULSE 93; RESP 18; TEMP 37.1; O2SAT 96
--- NOTE | 2024-12-04 16:23 | PC.NURSE ---
1516 status change to full admit at this time.
[2024-12-04 16:39] LABS: Glucose Point of Care 137 mg/dl (65-105)
[2024-12-04 20:00] VITALS: PULSE 93; RESP 18; O2SAT 96
[2024-12-04 20:55] LABS: Glucose Point of Care 244 mg/dl (65-105)
[2024-12-04] MEDS: traMADol HCL (*CRX) 50 MG TABLET PO (20:55)
[2024-12-04] MEDS: ATORVASTATIN 40 MG TABLET PO (20:55)
[2024-12-05] VITALS: BP 124/76; PULSE 91; RESP 16; TEMP 36.4; O2SAT 97
[2024-12-05] MEDS: SODIUM CHLORIDE 0.9% IV 1,000 ML 100 ML IV CONT (02:21)
--- NOTE | 2024-12-05 06:21 | PC.NURSE ---
Hematuria noted to azul catheter bag, with blood clots in tubing and bottom of bag. Catheter not secured in stat-lock, and noted to be pulled taunt. Catheter flushed, with no hematuria noted to return, azul bag changed. Cath secured in stat-lock. Procedure tolerated well, patient states understanding of procedure and purpose.
[2024-12-05 06:48] LABS: Hematocrit 31.6 % (37.0-46.0); Hemoglobin 10.2 g/dL (12.4-15.3); Mean Corpuscular HGB Conc 32.3 g/dL (32-36); Mean Corpuscular Hemoglobin 27.7 pg (27.0-31.0); Mean Corpuscular Volume 85.9 fL (78.0-102.0); Mean Platelet Volume 9.3 fl (8.7-11.0); Platelet Count Result 330 K/mm3 (150-420); Red Blood Count 3.68 M/mm3 (4.70-6.10); Red Cell Distribution Width 12.7 % (11.6-14.4); White Blood Count 7.4 K/mm3 (4.8-10.8)
[2024-12-05 07:04] LABS: Alanine Aminotransferase 7 U/L (16-63); Albumin Level 2.1 g/dL (3.4-5.0); Alkaline Phosphatase 97 U/L (46-116); Anion Gap 6 mmol/L (4-12); Aspartate Amino Transferase < 10 U/L (15-37); Bilirubin,Total 0.3 mg/dL (0.00-1.00); Blood Urea Nitrogen 6 mg/dL (7-18); Calcium 8.9 mg/dL (8.5-10.1); Carbon Dioxide 28 mmol/L (21-32); Chloride 103 mmol/L (98-108); Estimated CRCL calculation 69 ml/min; Estimated Glomerular Filt Rate > 60; Glucose 122 mg/dL (70-99); Osmolality Calculated 282 mOsm/kg (285-295); Potassium 3.8 mmol/L (3.5-5.1); Sodium 137 mmol/L (136-145); Total Protein 5.6 g/dL (6.4-8.2)
[2024-12-05 08:00] VITALS: BP 131/84; PULSE 90; RESP 16; TEMP 36.6; O2SAT 96
[2024-12-05 08:16] LABS: Glucose Point of Care 115 mg/dl (65-105)
[2024-12-05] MEDS: THERAPEUTIC MULTIVITAMINS/MINERALS TAB (*BKC) 1 TABLET PO (09:34)
[2024-12-05] MEDS: CLOPIDOGREL BISULFATE 75 MG TABLET PO (09:34)
[2024-12-05] MEDS: amLODIPine BESYLATE 5 MG TABLET 10 MG PO (09:34)
[2024-12-05] MEDS: lisinopriL 20 MG TABLET PO ×2 (09:34→20:26)
[2024-12-05] MEDS: GABAPENTIN 300 MG CAPSULE PO ×2 (09:34→17:02)
[2024-12-05] MEDS: NICOTINE (*PBKC) 14 MG PATCH 1 PATCH TRANSDERM (09:35)
[2024-12-05] MEDS: traMADol HCL (*CRX) 50 MG TABLET PO ×2 (09:35→20:27)
[2024-12-05] MEDS: ASPIRIN 81 MG CHEWABLE TABLET PO (09:35)
[2024-12-05] MEDS: INSULIN GLARGINE (*BKC) 1,000 UNITS/10 ML VIAL 10 UNITS SUB-Q (09:46)
--- NOTE | 2024-12-05 10:15 | P.PN_ITS ---
Progress Note: A&P Assessment and Plan (1) UTI (urinary tract infection): Qualifiers: Encounter type: subsequent encounter Indwelling urinary catheter type: indwelling urethral catheter Urinary tract infection type: catheter-associated UTI Qualified Code(s): T83.511D - Infection and inflammatory reaction due to indwelling urethral catheter, subsequent encounter; N39.0 - Urinary tract infection, site not specified Code(s): N39.0 - Urinary tract infection, site not specified Status: Acute Assessment and Plan: patient with chronic indwelling Avendaño catheter on arrival was cloudy with clots hematuria, and odorous smell patient reports not been changed since August. Initial Avendaño exchange done in the emergency department but was still leaking around catheter replaced with a 24 German three-way will need intermittent flushing to clear clots. no previous urinalysis evaluation * urine showed brown in color 3+ protein 3+ glucose 3+ blood nitrate positive, trace leukocyte greater than 75 WBC and 2+ bacteria * received dose of Levaquin in the ED * switch patient to Rocephin IV at this time pending cultures and sensitivities * blood cultures pending * Will need new Urologist at discharge (2) Decubitus ulcer: Qualifiers: Laterality: unspecified laterality Pressure injury location: buttock Pressure injury stage: stage 2 Qualified Code(s): L89.302 - Pressure ulcer of unspecified buttock, stage 2 Code(s): L89.90 - Pressure ulcer of unspecified site, unspecified stage Status: Acute Assessment and Plan: patient with stage II decubitus ulcer good granulation does not appear to be infected * Q 2 turns, offloading * alleyevn pad change daily or when soiled * wound consult was placed however we do not have wound and house will need to make an appointment at the outside Wound Clinic * blood sugar control for wound healing * Pain control (3) CVA (cerebral vascular accident): Code(s): I63.9 - Cerebral infarction, unspecified Status: Acute Assessment and Plan: patient suffered a acute CVA in August causing left-sided lower extremity weakness and flaccid left upper arm he states he has been bed-bound since then * continued ASA, Plavix, statin (4) HTN (hypertension): Code(s): I10 - Essential (primary) hypertension Status: Acute Assessment and Plan: * continue patient's amlodipine and lisinopril * monitor BP per unit protocol (5) HLD (hyperlipidemia): Code(s): E78.5 - Hyperlipidemia, unspecified Status: Acute Assessment and Plan: * resume atorvastatin (6) Diabetes mellitus: Code(s): E11.9 - Type 2 diabetes mellitus without complications Status: Acute Assessment and Plan: * continue patient's 10 unit long-acting insulin * moderate SSI * Accu-Cheks a.c. HS * hypoglycemic protocol * diabetic diet Plan Code status: Full code per patient DVT prophylaxis: SCD's Stress ulcer prophylaxis: Protonix 40 daily PT/OT notes: PT/OT for placement Disposition: patient continues admission to the medical unit for further evaluation and treatment of urinary tract infection and sacral wound PT/OT has been ordered care coordination assisting with long-term placement PT OT pending. Patient could benefit from core training and being taught how to use a trapezes. Subjective Date/time seen: 12/05/24 10:15 Interval history: Not sure is we are able to make patient a little stronger to go home with possible hospital bed and a trapeze where he is able to assist with getting himself up to chair and or wheel chair. Placement is needed Exam Const: General: comfortable, no acute distress and well nourished Nutritional Appearance: well nourished Orientation/consciousness: patient oriented x3 Limitations: no limitations HENMT: Head: normal to inspection Ears: TM's normal bilaterally Face/Nose/Sinus: Normal nares present Mouth: Yes moist mucous membranes Eyes: General: appearance normal, both eyes and all related structures Conjunctivae: conjunctivae normal Sclera: sclerae normal Pupils: Equal, round and reactive pupils present EOM: EOMs intact bilaterally Neck: Neck: normal visual inspection, supple and no JVD Chest: Chest palpation & inspection: normal inspection of the chest Resp: Effort & Inspection: normal respiratory effort Auscultation: clear to auscultation bilaterally Cardio: Rate: regular rate and tachycardic Rhythm: regular rhythm GI: Auscultation: normal bowel sounds Rectal Exam: normal sphincter tone : General: Yes bladder normal to palpation and Yes no CVA tenderness Other: Avendaño catheter Urinary Catheter: Urinary Catheter: urine cloudy, urine red and urine with clots Back/Spine/Pelvis: Back: no CVA tenderness Skin: General skin exam: normal color Wounds: no wounds Other: stage II decubitus ulcer with some no redness or erythema no drainage. Neuro: General: patient oriented x3 Cranial nerves: Yes Equal, round and reactive pupils present Speech: normal speech Motor exam (neuro): Abnormal motor strength present Other: patient with left-sided weakness to lower extremity and flaccid left arm post CVA Extrem: General: normal to inspection and no clubbing, cyanosis or edema Psych: Mental Status: mental status grossly normal Affect: normal affect Objective Data Vital Signs Vital Signs: Vital Signs - 24 hr 12/04/24 16:00 12/04/24 20:00 12/05/24 00:00 Temperature 98.7 F 97.6 F Pulse Rate 93 93 91 Respiratory Rate 18 18 16 Blood Pressure 145/87 H 124/76 Pulse Oximetry 96 96 97 Oxygen Delivery Room Air Room Air Room Air Intake/Output Intake/Output: Intake & Output 12/02/24 12/03/24 12/04/24 12/05/24 23:59 23:59 23:59 23:59 Intake Total 3868.3 3465.0 1300 Output Total 850 1650 1300 Balance 3018.3 1815.0 0 Meds/Results Medications: Active Medications Generic Name Dose Route Start Last Admin Trade Name Freq PRN Reason Stop Dose Admin Acetaminophen 650 mg 12/02/24 23:28 Acetaminophen 325 Mg Tablet PO Q4-6H PRN pain 1-3 Amlodipine Besylate 10 mg 12/03/24 09:00 12/05/24 09:34 Amlodipine Besylate 5 Mg Tablet PO 10 mg DAILY MORALES Administration Aspirin 81 mg 12/03/24 08:00 12/05/24 09:35 Aspirin 81 Mg Chewable Tablet PO 81 mg DAILY@0800 MORALES Administration Atorvastatin Calcium 40 mg 12/03/24 21:00 12/04/24 20:55 Atorvastatin 40 Mg Tablet PO 40 mg HS MORALES Administration Clopidogrel Bisulfate 75 mg 12/03/24 09:00 12/05/24 09:34 Clopidogrel Bisulfate 75 Mg Tablet PO 75 mg DAILY MORALES Administration Dextrose 12.5 gm 12/02/24 23:28 Dextrose 50% 25 Gm/50 Ml Syringe IV PUSH PRN PRN Hypoglycemia Protocol Docusate Sodium 100 mg 12/03/24 09:00 12/05/24 09:44 Docusate Sodium 100 Mg Capsule PO Not Given BID MORALES Gabapentin 300 mg 12/03/24 09:00 12/05/24 09:34 Gabapentin 300 Mg Capsule PO 300 mg BID MORALES Administration Glucagon 1 mg 12/02/24 23:28 Glucagon For Inj 1 Mg Vial IM PRN PRN Hypoglycemia Protocol Glucose 15 gm 12/02/24 23:28 Glucose Oral Gel 15 Gm Of Glucse In 37.5 Gm Tube PO PRN PRN Hypoglycemia Protocol Sodium Chloride 1,000 mls @ 100 mls/hr 12/02/24 23:25 12/05/24 02:21 Normal Saline Iv IV CONT 100 mls/hr .Q10H MORALES Administration Dextrose 1,000 mls @ 100 mls/hr 12/02/24 23:28 Dextrose 5% 1,000 Ml IVPB PRN PRN Hypoglycemia Protocol Ceftriaxone Sodium 1 gm in 50 mls @ 100 mls/hr 12/03/24 08:00 12/05/24 08:12 Rocephin 1 Gm/Ns 50 Ml IVPB 100 mls/hr Q24H MORALES Administration Insulin Glargine 10 units 12/03/24 09:00 12/05/24 09:46 Insulin Glargine (*Bkc) 1,000 Units/10 Ml Vial SUB-Q 10 units DAILY MORALES Administration Insulin Human Lispro 3 - 6 units 12/03/24 08:00 12/05/24 08:00 Insulin Human Lispro (*Bkc) 1,000 Units/10 Ml Vial SUB-Q Not Given TIDWM MORALES Protocol Lisinopril 20 mg 12/03/24 09:00 12/05/24 09:34 Lisinopril 20 Mg Tablet PO 20 mg Q12HR MORALES Administration Magnesium Hydroxide 30 ml 12/02/24 23:24 Magnesium Hydroxide Susp 30 Ml Udc PO DAILY PRN Constipation Morphine Sulfate 2 mg 12/02/24 23:24 Morphine Sulfate (*Crx) 2 Mg/Ml Inj IV PUSH Q4H PRN Pain Rated 7-10 Multivitamins/Calcium 1 tablet 12/03/24 09:00 12/05/24 09:34 Therapeutic Multivitamins/Minerals Tab (*Bkc) PO 1 tablet DAILY MORALES Administration Naloxone HCl 0.1 mg 12/02/24 23:24 Naloxone Hcl 0.4 Mg/Ml Vial IV PUSH Q2M PRN Opiate Reversal Nicotine 1 patch 12/02/24 23:35 12/05/24 09:35 Nicotine (*Pbkc) 14 Mg Patch TRANSDERM 1 patch DAILY MORALES Administration Ondansetron HCl 4 mg 12/03/24 08:03 Ondansetron Inj 4 Mg/2 Ml Vial IV PUSH Q6H PRN Nausea And Vomiting Senna/Docusate Sodium 1 tab 12/02/24 23:28 Senna/Docusate Sodium Tablet PO BID PRN constipation Tramadol HCl 50 mg 12/02/24 23:28 12/05/24 09:35 Tramadol Hcl (*Crx) 50 Mg Tablet PO 50 mg Q6-8H PRN Administration pain 4-6 Labs Labs: Laboratory Results - last 24 hr 12/04/24 12/04/24 12/04/24 12:09 16:31 20:50 WBC RBC Hgb Hct MCV MCH MCHC RDW Plt Count MPV Sodium Potassium Chloride Carbon Dioxide Anion Gap BUN Creatinine Estim Creat Clear Calc Estimated GFR Glucose POC Capillary Glucose 209 H 137 H 244 H Calculated Osmolality Calcium Total Bilirubin AST ALT Alkaline Phosphatase Total Protein Albumin 12/05/24 12/05/24 06:30 08:12 WBC 7.4 RBC 3.68 L Hgb 10.2 L Hct 31.6 L MCV 85.9 MCH 27.7 MCHC 32.3 RDW 12.7 Plt Count 330 MPV 9.3 Sodium 137 Potassium 3.8 Chloride 103 Carbon Dioxide 28 Anion Gap 6 BUN 6 L Creatinine 1.00 Estim Creat Clear Calc 69 Estimated GFR > 60 Glucose 122 H POC Capillary Glucose 115 H Calculated Osmolality 282 L Calcium 8.9 Total Bilirubin 0.3 AST < 10 L ALT 7 L Alkaline Phosphatase 97 Total Protein 5.6 L Albumin 2.1 L
[2024-12-05 11:58] LABS: Glucose Point of Care 169 mg/dl (65-105)
[2024-12-05 16:00] VITALS: BP 144/75; PULSE 84; RESP 20; TEMP 36.5; O2SAT 97
[2024-12-05] MEDS: DOCUSATE SODIUM 100 MG CAPSULE PO (17:02)
[2024-12-05 17:10] LABS: Glucose Point of Care 160 mg/dl (65-105)
[2024-12-05 20:00] VITALS: PULSE 84; RESP 20; O2SAT 97
[2024-12-05] MEDS: ATORVASTATIN 40 MG TABLET PO (20:26)
[2024-12-05 20:32] LABS: Glucose Point of Care 151 mg/dl (65-105)
[2024-12-06] VITALS: BP 151/70; PULSE 83; RESP 17; TEMP 36.4; O2SAT 98
[2024-12-06 05:39] LABS: Hematocrit 32.4 % (37.0-46.0); Hemoglobin 10.6 g/dL (12.4-15.3); Mean Corpuscular HGB Conc 32.7 g/dL (32-36); Mean Corpuscular Hemoglobin 28.2 pg (27.0-31.0); Mean Corpuscular Volume 86.2 fL (78.0-102.0); Mean Platelet Volume 9.1 fl (8.7-11.0); Platelet Count Result 338 K/mm3 (150-420); Red Blood Count 3.76 M/mm3 (4.70-6.10); Red Cell Distribution Width 12.7 % (11.6-14.4); White Blood Count 7.2 K/mm3 (4.8-10.8)
[2024-12-06 05:55] LABS: Alanine Aminotransferase 8 U/L (16-63); Albumin Level 2.2 g/dL (3.4-5.0); Alkaline Phosphatase 99 U/L (46-116); Anion Gap 4 mmol/L (4-12); Aspartate Amino Transferase 10 U/L (15-37); Bilirubin,Total 0.3 mg/dL (0.00-1.00); Blood Urea Nitrogen 2 mg/dL (7-18); Calcium 9.3 mg/dL (8.5-10.1); Carbon Dioxide 31 mmol/L (21-32); Chloride 101 mmol/L (98-108); Estimated CRCL calculation 67 ml/min; Estimated Glomerular Filt Rate > 60; Glucose 108 mg/dL (70-99); Osmolality Calculated 279 mOsm/kg (285-295); Potassium 3.9 mmol/L (3.5-5.1); Sodium 136 mmol/L (136-145); Total Protein 5.9 g/dL (6.4-8.2)
[2024-12-06 08:00] VITALS: BP 147/69; PULSE 74; RESP 16; TEMP 36.5; O2SAT 94
[2024-12-06] MEDS: AMOXICILLIN/CLAVULANATE K 875-125 MG TAB 1 TABLET PO ×2 (09:58→20:25)
[2024-12-06] MEDS: DOCUSATE SODIUM 100 MG CAPSULE PO ×2 (09:58→17:54)
[2024-12-06] MEDS: CLOPIDOGREL BISULFATE 75 MG TABLET PO (09:58)
[2024-12-06] MEDS: GABAPENTIN 300 MG CAPSULE PO ×2 (09:58→17:54)
[2024-12-06] MEDS: THERAPEUTIC MULTIVITAMINS/MINERALS TAB (*BKC) 1 TABLET PO (09:58)
[2024-12-06] MEDS: lisinopriL 20 MG TABLET PO ×2 (09:58→20:25)
[2024-12-06] MEDS: NICOTINE (*PBKC) 14 MG PATCH 1 PATCH TRANSDERM (09:58)
[2024-12-06] MEDS: amLODIPine BESYLATE 5 MG TABLET 10 MG PO (09:58)
[2024-12-06] MEDS: ASPIRIN 81 MG CHEWABLE TABLET PO (09:58)
[2024-12-06] MEDS: traMADol HCL (*CRX) 50 MG TABLET PO ×2 (09:58→20:25)
[2024-12-06] MEDS: INSULIN GLARGINE (*BKC) 1,000 UNITS/10 ML VIAL 10 UNITS SUB-Q (10:01)
--- NOTE | 2024-12-06 11:03 | P.PNIM_ITS ---
Progress Note: A&P Assessment and Plan (1) UTI (urinary tract infection): Qualifiers: Encounter type: subsequent encounter Indwelling urinary catheter type: indwelling urethral catheter Urinary tract infection type: catheter-associated UTI Qualified Code(s): T83.511D - Infection and inflammatory reaction due to indwelling urethral catheter, subsequent encounter; N39.0 - Urinary tract infection, site not specified Code(s): N39.0 - Urinary tract infection, site not specified Status: Acute Assessment and Plan: patient with chronic indwelling Avendaño catheter on arrival was cloudy with clots hematuria, and odorous smell patient reports not been changed since August. Initial Avendaño exchange done in the emergency department but was still leaking around catheter replaced with a 24 Micronesian three-way will need intermittent flushing to clear clots. no previous urinalysis evaluation. urinalysis did not grow any bacteria showing normal baldemar but due to examination of initial urine and nitrate positive will continue to treat. blood cultures no growth acute 48 hours * urine showed brown in color 3+ protein 3+ glucose 3+ blood nitrate positive, trace leukocyte greater than 75 WBC and 2+ bacteria * received dose of Levaquin in the ED * transition patient to oral amoxicillin * Will need new Urologist at discharge (2) Decubitus ulcer: Qualifiers: Laterality: unspecified laterality Pressure injury location: buttock Pressure injury stage: stage 2 Qualified Code(s): L89.302 - Pressure ulcer of unspecified buttock, stage 2 Code(s): L89.90 - Pressure ulcer of unspecified site, unspecified stage Status: Acute Assessment and Plan: patient with stage II decubitus ulcer good granulation does not appear to be infected * Q 2 turns, offloading * alleyevn pad change daily or when soiled * wound consult was placed however we do not have wound and house will need to make an appointment at the outside Wound Clinic * blood sugar control for wound healing * Pain control (3) CVA (cerebral vascular accident): Code(s): I63.9 - Cerebral infarction, unspecified Status: Acute Assessment and Plan: patient suffered a acute CVA in August causing left-sided lower extremity weakness and flaccid left upper arm he states he has been bed-bound since then * continued ASA, Plavix, statin (4) HTN (hypertension): Code(s): I10 - Essential (primary) hypertension Status: Acute Assessment and Plan: * continue patient's amlodipine and lisinopril * monitor BP per unit protocol (5) HLD (hyperlipidemia): Code(s): E78.5 - Hyperlipidemia, unspecified Status: Acute Assessment and Plan: * resume atorvastatin (6) Diabetes mellitus: Code(s): E11.9 - Type 2 diabetes mellitus without complications Status: Acute Assessment and Plan: * continue patient's 10 unit long-acting insulin * moderate SSI * Accu-Cheks a.c. HS * hypoglycemic protocol * diabetic diet Plan Code status: Full code per patient DVT prophylaxis: SCD's Stress ulcer prophylaxis: Protonix 40 daily PT/OT notes: PT/OT for placement Disposition: patient continues admission to the medical unit for further evaluation and treatment of urinary tract infection and sacral wound PT/OT has been ordered care coordination assisting with long-term placement Time Spent With Patient Time with patient: 15 - 25 minutes Subjective Date/time seen: 12/06/24 11:03 Interval history: patient is a 69-year-old male who was admitted for further evaluation and treatment of urinary tract infection and decubitus ulcer. Patient is bed-bound post CVA from August 2024. 12/09/2024: Patient no acute distress denied any chest pain, shortness a breath, nausea, vomiting. patient has remained afebrile and normal white count. labs and vitals reviewed. Review of Systems Review of Systems: All systems reviewed & are unremarkable except as noted in HPI and below Exam Const: General: comfortable and no acute distress HENMT: Ears: TM's normal bilaterally Face/Nose/Sinus: Normal nares present Mouth: Yes moist mucous membranes Eyes: General: appearance normal, both eyes and all related structures Sclera: sclerae normal Pupils: Equal, round and reactive pupils present EOM: EOMs intact bilaterally Neck: Neck: supple and no JVD Resp: Effort & Inspection: normal respiratory effort Auscultation: clear to auscultation bilaterally Cardio: Rate: regular rate GI: Auscultation: normal bowel sounds : General: Yes bladder normal to palpation Urinary Catheter: Urinary Catheter: patent and draining and urine clear Skin: General skin exam: normal color Wounds: wounds noted (Stage II ) ulceration buttock bed granulating well, drainage, margins well approximated, without odor and open Neuro: Cranial nerves: Yes Equal, round and reactive pupils present Speech: normal speech Motor exam (neuro): Abnormal motor strength present Other: patient with left-sided weakness to lower extremity and flaccid left arm post CVA Extrem: General: normal to inspection Psych: Mental Status: mental status grossly normal Affect: normal affect Objective Data Vital Signs Vital Signs: Vital Signs - 24 hr 12/05/24 16:00 12/05/24 20:00 12/06/24 00:00 Temperature 97.7 F 97.5 F L Pulse Rate 84 84 83 Respiratory Rate 20 20 17 Blood Pressure 144/75 H 151/70 H Pulse Oximetry 97 97 98 Oxygen Delivery Room Air Room Air Room Air 12/06/24 08:00 Temperature 97.7 F Pulse Rate 74 Respiratory Rate 16 Blood Pressure 147/69 H Pulse Oximetry 94 Oxygen Delivery Room Air Intake/Output Intake/Output: Intake & Output 12/03/24 12/04/24 12/05/24 12/06/24 23:59 23:59 23:59 23:59 Intake Total 3868.3 3465.0 3940 240 Output Total 850 1650 2500 1300 Balance 3018.3 1815.0 1440 -1060 Meds/Results Medications: Active Medications Generic Name Dose Route Start Last Admin Trade Name Freq PRN Reason Stop Dose Admin Acetaminophen 650 mg 12/02/24 23:28 Acetaminophen 325 Mg Tablet PO Q4-6H PRN pain 1-3 Amlodipine Besylate 10 mg 12/03/24 09:00 12/06/24 09:58 Amlodipine Besylate 5 Mg Tablet PO 10 mg DAILY MORALES Administration Amoxicillin/Clavulanate Potassium 1 tablet 12/06/24 09:00 12/06/24 09:58 Amoxicillin/Clavulanate K 875-125 Mg Tab PO 12/09/24 21:01 1 tablet Q12HR MORALES Administration Aspirin 81 mg 12/03/24 08:00 12/06/24 09:58 Aspirin 81 Mg Chewable Tablet PO 81 mg DAILY@0800 MORALES Administration Atorvastatin Calcium 40 mg 12/03/24 21:00 12/05/24 20:26 Atorvastatin 40 Mg Tablet PO 40 mg HS MORALES Administration Clopidogrel Bisulfate 75 mg 12/03/24 09:00 12/06/24 09:58 Clopidogrel Bisulfate 75 Mg Tablet PO 75 mg DAILY MORALES Administration Dextrose 12.5 gm 12/02/24 23:28 Dextrose 50% 25 Gm/50 Ml Syringe IV PUSH PRN PRN Hypoglycemia Protocol Docusate Sodium 100 mg 12/03/24 09:00 12/06/24 09:58 Docusate Sodium 100 Mg Capsule PO 100 mg BID MORALES Administration Gabapentin 300 mg 12/03/24 09:00 12/06/24 09:58 Gabapentin 300 Mg Capsule PO 300 mg BID MORALES Administration Glucagon 1 mg 12/02/24 23:28 Glucagon For Inj 1 Mg Vial IM PRN PRN Hypoglycemia Protocol Glucose 15 gm 12/02/24 23:28 Glucose Oral Gel 15 Gm Of Glucse In 37.5 Gm Tube PO PRN PRN Hypoglycemia Protocol Dextrose 1,000 mls @ 100 mls/hr 12/02/24 23:28 Dextrose 5% 1,000 Ml IVPB PRN PRN Hypoglycemia Protocol Insulin Glargine 10 units 12/03/24 09:00 12/06/24 10:01 Insulin Glargine (*Bkc) 1,000 Units/10 Ml Vial SUB-Q 10 units DAILY MORALES Administration Insulin Human Lispro 3 - 6 units 12/03/24 08:00 12/06/24 08:00 Insulin Human Lispro (*Bkc) 1,000 Units/10 Ml Vial SUB-Q Not Given [facility] Protocol Lisinopril 20 mg 12/03/24 09:00 12/06/24 09:58 Lisinopril 20 Mg Tablet PO 20 mg Q12HR MORALES Administration Magnesium Hydroxide 30 ml 12/02/24 23:24 Magnesium Hydroxide Susp 30 Ml Udc PO DAILY PRN Constipation Morphine Sulfate 2 mg 12/02/24 23:24 Morphine Sulfate (*Crx) 2 Mg/Ml Inj IV PUSH Q4H PRN Pain Rated 7-10 Multivitamins/Calcium 1 tablet 12/03/24 09:00 12/06/24 09:58 Therapeutic Multivitamins/Minerals Tab (*Bkc) PO 1 tablet DAILY MORALES Administration Naloxone HCl 0.1 mg 12/02/24 23:24 Naloxone Hcl 0.4 Mg/Ml Vial IV PUSH Q2M PRN Opiate Reversal Nicotine 1 patch 12/02/24 23:35 12/06/24 09:58 Nicotine (*Pbkc) 14 Mg Patch TRANSDERM 1 patch DAILY MORALES Administration Ondansetron HCl 4 mg 12/03/24 08:03 Ondansetron Inj 4 Mg/2 Ml Vial IV PUSH Q6H PRN Nausea And Vomiting Senna/Docusate Sodium 1 tab 12/02/24 23:28 Senna/Docusate Sodium Tablet PO BID PRN constipation Tramadol HCl 50 mg 12/02/24 23:28 12/06/24 09:58 Tramadol Hcl (*Crx) 50 Mg Tablet PO 50 mg Q6-8H PRN Administration pain 4-6 Labs Labs: Laboratory Results - last 24 hr 12/05/24 12/05/24 12/05/24 11:55 17:06 20:28 WBC RBC Hgb Hct MCV MCH MCHC RDW Plt Count MPV Sodium Potassium Chloride Carbon Dioxide Anion Gap BUN Creatinine Estim Creat Clear Calc Estimated GFR Glucose POC Capillary Glucose 169 H 160 H 151 H Calculated Osmolality Calcium Total Bilirubin AST ALT Alkaline Phosphatase Total Protein Albumin 12/06/24 05:21 WBC 7.2 RBC 3.76 L Hgb 10.6 L Hct 32.4 L MCV 86.2 MCH 28.2 MCHC 32.7 RDW 12.7 Plt Count 338 MPV 9.1 Sodium 136 Potassium 3.9 Chloride 101 Carbon Dioxide 31 Anion Gap 4 BUN 2 L Creatinine 1.03 Estim Creat Clear Calc 67 Estimated GFR > 60 Glucose 108 H POC Capillary Glucose Calculated Osmolality 279 L Calcium 9.3 Total Bilirubin 0.3 AST 10 L ALT 8 L Alkaline Phosphatase 99 Total Protein 5.9 L Albumin 2.2 L Quality VTE Prophylaxis VTE prophylaxis: mechanical ordered -Patient's previous records reviewed on admission -ER notes reviewed in detail on admission -discussed all findings and current treatment plan with patient/Family/POA -Consultations reviewed for recommendations -Patient's disposition for safe discharge discussed with registered nurse hh case manager Dictation performed by [employer] direct speech recognition software, therefore rubber gasket inspector trimmer variants and typographical errors may occur. Hospitalist MIPS Advance Care Plan I have confirmed that the patient's Advanced Care Plan is present, code status is documented, or surrogate decision maker is listed in patient medical record.: Yes Medication Reconciliation I have utilized all available resources to obtain, update and review the patients current medications (includes all prescriptions, OTC, herbals, cannabis, and nutritional supplements).: Yes The patient is not eligible for med reconciliation; the patient is in a emergent medical situation where delaying treatment would jeopardize the patients health.: No
[2024-12-06 11:37] LABS: Glucose Point of Care 199 mg/dl (65-105)
[2024-12-06 16:00] VITALS: BP 142/79; PULSE 94; RESP 18; TEMP 36.6; O2SAT 96
[2024-12-06 17:31] LABS: Glucose Point of Care 168 mg/dl (65-105)
[2024-12-06 20:00] VITALS: PULSE 94; RESP 18; O2SAT 96
[2024-12-06] MEDS: ATORVASTATIN 40 MG TABLET PO (20:25)
[2024-12-06 20:29] LABS: Glucose Point of Care 199 mg/dl (65-105)
[2024-12-07] VITALS: BP 125/58; PULSE 97; RESP 17; TEMP 36.6; O2SAT 97
[2024-12-07 07:24] LABS: Hematocrit 34.8 % (37.0-46.0); Hemoglobin 11.3 g/dL (12.4-15.3); Mean Corpuscular HGB Conc 32.5 g/dL (32-36); Mean Corpuscular Volume 86.4 fL (78.0-102.0); Mean Platelet Volume 8.7 fl (8.7-11.0); Platelet Count Result 330 K/mm3 (150-420); Red Blood Count 4.03 M/mm3 (4.70-6.10); Red Cell Distribution Width 12.7 % (11.6-14.4); White Blood Count 7.9 K/mm3 (4.8-10.8)
[2024-12-07 07:38] LABS: Alanine Aminotransferase 10 U/L (6-50); Alkaline Phosphatase 100 U/L (38-126); Anion Gap 1 mmol/L (4-12); Aspartate Amino Transferase 20 U/L (17-59); Bilirubin,Total 0.4 mg/dL (0.2-1.3); Blood Urea Nitrogen 9 mg/dL (9-20); Calcium 9.3 mg/dL (8.4-10.2); Carbon Dioxide 32 mmol/L (22-30); Chloride 102 mmol/L (98-107); Estimated CRCL calculation 70 ml/min; Estimated Glomerular Filt Rate > 60; Glucose 153 mg/dL (65-110); Osmolality Calculated 281 mOsm/kg (285-295); Potassium 4.2 mmol/L (3.4-5.0); Sodium 135 mmol/L (137-145); Total Protein 6.3 g/dL (6.3-8.2)
[2024-12-07 08:00] VITALS: BP 132/61; PULSE 92; RESP 13; TEMP 36.6; O2SAT 98
--- NOTE | 2024-12-07 08:28 | P.PNIM_ITS ---
Progress Note: A&P Assessment and Plan (1) UTI (urinary tract infection): Qualifiers: Encounter type: subsequent encounter Indwelling urinary catheter type: indwelling urethral catheter Urinary tract infection type: catheter-associated UTI Qualified Code(s): T83.511D - Infection and inflammatory reaction due to indwelling urethral catheter, subsequent encounter; N39.0 - Urinary tract infection, site not specified Code(s): N39.0 - Urinary tract infection, site not specified Status: Acute Assessment and Plan: patient with chronic indwelling Avendaño catheter on arrival was cloudy with clots hematuria, and odorous smell patient reports not been changed since August. Initial Avendaño exchange done in the emergency department but was still leaking around catheter replaced with a 24 [place] three-way will need intermittent flushing to clear clots. no previous urinalysis evaluation. urinalysis did not grow any bacteria showing normal baldemar but due to examination of initial urine and nitrate positive will continue to treat. blood cultures no growth acute 48 hours * urine showed brown in color 3+ protein 3+ glucose 3+ blood nitrate positive, trace leukocyte greater than 75 WBC and 2+ bacteria * received dose of Levaquin in the ED * transition patient to oral amoxicillin * Will need new Urologist at discharge (2) Decubitus ulcer: Qualifiers: Laterality: unspecified laterality Pressure injury location: buttock Pressure injury stage: stage 2 Qualified Code(s): L89.302 - Pressure ulcer of unspecified buttock, stage 2 Code(s): L89.90 - Pressure ulcer of unspecified site, unspecified stage Status: Acute Assessment and Plan: patient with stage II decubitus ulcer good granulation does not appear to be infected * Q 2 turns, offloading * alleyevn pad change daily or when soiled * wound consult was placed however we do not have wound and house will need to make an appointment at the outside Wound Clinic * blood sugar control for wound healing * Pain control (3) CVA (cerebral vascular accident): Code(s): I63.9 - Cerebral infarction, unspecified Status: Acute Assessment and Plan: patient suffered a acute CVA in August causing left-sided lower extremity weakness and flaccid left upper arm he states he has been bed-bound since then * continued ASA, Plavix, statin (4) HTN (hypertension): Code(s): I10 - Essential (primary) hypertension Status: Acute Assessment and Plan: * continue patient's amlodipine and lisinopril * monitor BP per unit protocol (5) HLD (hyperlipidemia): Code(s): E78.5 - Hyperlipidemia, unspecified Status: Acute Assessment and Plan: * resume atorvastatin (6) Diabetes mellitus: Code(s): E11.9 - Type 2 diabetes mellitus without complications Status: Acute Assessment and Plan: * continue patient's 10 unit long-acting insulin * moderate SSI * Accu-Cheks a.cEnedina HS * hypoglycemic protocol * diabetic diet Plan Code status: Full code per patient DVT prophylaxis: SCD's Stress ulcer prophylaxis: Protonix 40 daily PT/OT notes: PT/OT for placement Disposition: patient continues admission to the medical unit for further evaluation and treatment of urinary tract infection and sacral wound PT/OT has been ordered care coordination assisting with long-term placement Time Spent With Patient Time with patient: 15 - 25 minutes Subjective Date/time seen: 12/07/24 08:28 Interval history: patient is a 69-year-old male who was admitted for further evaluation and jake atment of urinary tract infection and decubitus ulcer. Patient is bed-bound post CVA from August 2024. 12/07/2024: Patient in no acute distress denied CP, SOB, N/V or pain. Labs and vitals reviewed waiting on placement Review of Systems Review of Systems: All systems reviewed & are unremarkable except as noted in HPI and below Exam Const: General: comfortable, no acute distress and well nourished Nutrit ional Appearance: well nourished Orientation/consciousness: patient oriented x3 Limitations: no limitations HENMT: Head: normal to inspection Ears: TM's normal bilaterally Face/Nose/Sinus: Normal nares present Mouth: Yes moist mucous membranes Eyes: General: appearance normal, both eyes and all related structures Conjunctivae: conjunctivae normal Sclera: sclerae normal Pupils: Equal, round and reactive pupils present EOM: EOMs intact bilaterally Neck: Neck: normal visual inspection, supple and no JVD Chest: Chest palpation & inspection: normal inspection of the chest Resp: Effort & Inspection: normal respiratory effort Auscultation: clear to auscultation bilaterally Cardio: Rate: regular rate and tachycardic Rhythm: regular rhythm GI: Auscultation: normal bowel sounds Rectal Exam: normal sphincter tone : General: Yes bladder normal to palpation and Yes no CVA tenderness Other: Avendaño catheter Urinary Catheter: Urinary Catheter: patent and draining and urine clear Back/Spine/Pelvis: Back: no CVA tenderness Skin: General skin exam: normal color and wounds noted (Stage II ) Wounds: no wounds and wounds noted (Stage II ) ulceration buttock bed granulating well, drainage, margins well approximated, without odor and open Other: stage II decubitus ulcer with some no redness or erythema no drainage. Neuro: General: patient oriented x3 Cranial nerves: Yes Equal, round and reactive pupils present Speech: normal speech Motor exam (neuro): Abnormal motor strength present Other: patient with left-sided weakness to lower extremity and flaccid left arm post CVA Extrem: General: normal to inspection and no clubbing, cyanosis or edema Psych: Mental Status: mental status grossly normal Affect: normal affect Objective Data Vital Signs Vital Signs: Vital Signs - 24 hr 12/06/24 16:00 12/06/24 20:00 12/07/24 00:00 Temperature 97.8 F 97.9 F Pulse Rate 94 94 97 Respiratory Rate 18 18 17 Blood Pressure 142/79 H 125/58 L Pulse Oximetry 96 96 97 Oxygen Delivery Room Air Room Air Room Air Intake/Output Intake/Output: Intake & Output 12/04/24 12/05/24 12/06/24 12/07/24 23:59 23:59 23:59 23:59 Intake Total 3465.0 3940 1900 360 Output Total 1650 2500 2200 1250 Balance 1815.0 1440 -300 -890 Meds/Results Medications: Active Medications Generic Name Dose Route Start Last Admin Trade Name Freq PRN Reason Stop Dose Admin Acetaminophen 650 mg 12/02/24 23:28 Acetaminophen 325 Mg Tablet PO Q4-6H PRN pain 1-3 Amlodipine Besylate 10 mg 12/03/24 09:00 12/06/24 09:58 Amlodipine Besylate 5 Mg Tablet PO 10 mg DAILY MORALES Administration Amoxicillin/Clavulanate Potassium 1 tablet 12/06/24 09:00 12/06/24 20:25 Amoxicillin/Clavulanate K 875-125 Mg Tab PO 12/09/24 21:01 1 tablet Q12HR MORALES Administration Aspirin 81 mg 12/03/24 08:00 12/06/24 09:58 Aspirin 81 Mg Chewable Tablet PO 81 mg DAILY@0800 MORALES Administration Atorvastatin Calcium 40 mg 12/03/24 21:00 12/06/24 20:25 Atorvastatin 40 Mg Tablet PO 40 mg HS MORALES Administration Clopidogrel Bisulfate 75 mg 12/03/24 09:00 12/06/24 09:58 Clopidogrel Bisulfate 75 Mg Tablet PO 75 mg DAILY MORALES Administration Dextrose 12.5 gm 12/02/24 23:28 Dextrose 50% 25 Gm/50 Ml Syringe IV PUSH PRN PRN Hypoglycemia Protocol Docusate Sodium 100 mg 12/03/24 09:00 12/06/24 17:54 Docusate Sodium 100 Mg Capsule PO 100 mg BID MORALES Administration Gabapentin 300 mg 12/03/24 09:00 12/06/24 17:54 Gabapentin 300 Mg Capsule PO 300 mg BID MORALES Administration Glucagon 1 mg 12/02/24 23:28 Glucagon For Inj 1 Mg Vial IM PRN PRN Hypoglycemia Protocol Glucose 15 gm 12/02/24 23:28 Glucose Oral Gel 15 Gm Of Glucse In 37.5 Gm Tube PO PRN PRN Hypoglycemia Protocol Dextrose 1,000 mls @ 100 mls/hr 12/02/24 23:28 Dextrose 5% 1,000 Ml IVPB PRN PRN Hypoglycemia Protocol Insulin Glargine 10 units 12/03/24 09:00 12/06/24 10:01 Insulin Glargine (*Bkc) 1,000 Units/10 Ml Vial SUB-Q 10 units DAILY MORALES Administration Insulin Human Lispro 3 - 6 units 12/03/24 08:00 12/07/24 08:22 Insulin Human Lispro (*Bkc) 1,000 Units/10 Ml Vial SUB-Q Not Given TIDWM MORALES Protocol Lisinopril 20 mg 12/03/24 09:00 12/06/24 20:25 Lisinopril 20 Mg Tablet PO 20 mg Q12HR MORALES Administration Magnesium Hydroxide 30 ml 12/02/24 23:24 Magnesium Hydroxide Susp 30 Ml Udc PO DAILY PRN Constipation Morphine Sulfate 2 mg 12/02/24 23:24 Morphine Sulfate (*Crx) 2 Mg/Ml Inj IV PUSH Q4H PRN Pain Rated 7-10 Multivitamins/Calcium 1 tablet 12/03/24 09:00 12/06/24 09:58 Therapeutic Multivitamins/Minerals Tab (*Bkc) PO 1 tablet DAILY MORALES Administration Naloxone HCl 0.1 mg 12/02/24 23:24 Naloxone Hcl 0.4 Mg/Ml Vial IV PUSH Q2M PRN Opiate Reversal Nicotine 1 patch 12/02/24 23:35 12/06/24 09:58 Nicotine (*Pbkc) 14 Mg Patch TRANSDERM 1 patch DAILY MORALES Administration Ondansetron HCl 4 mg 12/03/24 08:03 Ondansetron Inj 4 Mg/2 Ml Vial IV PUSH Q6H PRN Nausea And Vomiting Senna/Docusate Sodium 1 tab 12/02/24 23:28 Senna/Docusate Sodium Tablet PO BID PRN constipation Tramadol HCl 50 mg 12/02/24 23:28 12/06/24 20:25 Tramadol Hcl (*Crx) 50 Mg Tablet PO 50 mg Q6-8H PRN Administration pain 4-6 Labs Labs: Laboratory Results - last 24 hr 12/06/24 12/06/24 12/06/24 11:32 17:01 20:24 WBC RBC Hgb Hct MCV MCH MCHC RDW Plt Count MPV Sodium Potassium Chloride Carbon Dioxide Anion Gap BUN Creatinine Estim Creat Clear Calc Estimated GFR Glucose POC Capillary Glucose 199 H 168 H 199 H Calculated Osmolality Calcium Total Bilirubin AST ALT Alkaline Phosphatase Total Protein Albumin 12/07/24 07:17 WBC 7.9 RBC 4.03 L Hgb 11.3 L Hct 34.8 L MCV 86.4 MCH 28.0 MCHC 32.5 RDW 12.7 Plt Count 330 MPV 8.7 Sodium 135 L Potassium 4.2 Chloride 102 Carbon Dioxide 32 H Anion Gap 1 L BUN 9 Creatinine 0.98 Estim Creat Clear Calc 70 Estimated GFR > 60 Glucose 153 H POC Capillary Glucose Calculated Osmolality 281 L Calcium 9.3 Total Bilirubin 0.4 AST 20 ALT 10 Alkaline Phosphatase 100 Total Protein 6.3 Albumin 3.0 L Quality VTE Prophylaxis VTE prophylaxis: mechanical ordered -Patient's previous records reviewed on admission -ER notes reviewed in detail on admission -discussed all findings and current treatment plan with patient/Family/POA -Consultations reviewed for recommendations -Patient's disposition for safe discharge discussed with manager case management Dictation performed by [employer] direct speech recognition software, therefore baker head variants and typographical errors may occur. Hospitalist MIPS Advance Care Plan I have confirmed that the patient's Advanced Care Plan is present, code status is documented, or surrogate decision maker is listed in patient medical record.: Yes Medication Reconciliation I have utilized all available resources to obtain, update and review the patients current medications (includes all prescriptions, OTC, herbals, cannabis, and nutritional supplements).: Yes The patient is not eligible for med reconciliation; the patient is in a emergent medical situation where delaying treatment would jeopardize the patients health.: No
[2024-12-07] MEDS: NICOTINE (*PBKC) 14 MG PATCH 1 PATCH TRANSDERM (08:58)
[2024-12-07] MEDS: INSULIN GLARGINE (*BKC) 1,000 UNITS/10 ML VIAL 10 UNITS SUB-Q (08:58)
[2024-12-07] MEDS: DOCUSATE SODIUM 100 MG CAPSULE PO ×2 (08:58→17:22)
[2024-12-07] MEDS: THERAPEUTIC MULTIVITAMINS/MINERALS TAB (*BKC) 1 TABLET PO (08:59)
[2024-12-07] MEDS: amLODIPine BESYLATE 5 MG TABLET 10 MG PO (08:59)
[2024-12-07] MEDS: lisinopriL 20 MG TABLET PO ×2 (08:59→20:49)
[2024-12-07] MEDS: AMOXICILLIN/CLAVULANATE K 875-125 MG TAB 1 TABLET PO ×2 (08:59→20:49)
[2024-12-07] MEDS: ASPIRIN 81 MG CHEWABLE TABLET PO (08:59)
[2024-12-07] MEDS: GABAPENTIN 300 MG CAPSULE PO ×2 (08:59→17:22)
[2024-12-07] MEDS: CLOPIDOGREL BISULFATE 75 MG TABLET PO (08:59)
[2024-12-07] MEDS: INSULIN HUMAN LISPRO (*BKC) 1,000 UNITS/10 ML VIAL SUB-Q (13:12)
[2024-12-07 14:50] LABS: Glucose Point of Care 211 mg/dl (65-105)
[2024-12-07 16:00] VITALS: BP 127/74; PULSE 103; RESP 18; TEMP 36.9; O2SAT 94
[2024-12-07 17:13] LABS: Glucose Point of Care 131 mg/dl (65-105)
[2024-12-07] MEDS: ATORVASTATIN 40 MG TABLET PO (20:49)
[2024-12-07 21:05] LABS: Glucose Point of Care 250 mg/dl (65-105)
[2024-12-08] VITALS: BP 152/78; PULSE 100; RESP 16; TEMP 36.6; O2SAT 93
[2024-12-08 06:00] LABS: Hematocrit 34.9 % (37.0-46.0); Hemoglobin 11.4 g/dL (12.4-15.3); Mean Corpuscular HGB Conc 32.7 g/dL (32-36); Mean Corpuscular Volume 85.7 fL (78.0-102.0); Mean Platelet Volume 9.3 fl (8.7-11.0); Platelet Count Result 345 K/mm3 (150-420); Red Blood Count 4.07 M/mm3 (4.70-6.10); Red Cell Distribution Width 12.7 % (11.6-14.4); White Blood Count 7.8 K/mm3 (4.8-10.8)
[2024-12-08 06:17] LABS: Alanine Aminotransferase 9 U/L (6-50); Albumin Level 2.9 g/dL (3.5-5.1); Alkaline Phosphatase 113 U/L (38-126); Anion Gap 1 mmol/L (4-12); Aspartate Amino Transferase 16 U/L (17-59); Bilirubin,Total 0.5 mg/dL (0.2-1.3); Blood Urea Nitrogen 10 mg/dL (9-20); Calcium 9.5 mg/dL (8.4-10.2); Carbon Dioxide 32 mmol/L (22-30); Chloride 103 mmol/L (98-107); Estimated CRCL calculation 83 ml/min; Estimated Glomerular Filt Rate > 60; Glucose 149 mg/dL (65-110); Osmolality Calculated 284 mOsm/kg (285-295); Sodium 136 mmol/L (137-145); Total Protein 5.9 g/dL (6.3-8.2)
[2024-12-08 08:00] VITALS: BP 164/80; PULSE 101; RESP 15; TEMP 36.4; O2SAT 92
--- NOTE | 2024-12-08 08:59 | P.PNIM_ITS ---
Progress Note: A&P Assessment and Plan (1) UTI (urinary tract infection): Qualifiers: Encounter type: subsequent encounter Indwelling urinary catheter type: indwelling urethral catheter Urinary tract infection type: catheter-associated UTI Qualified Code(s): T83.511D - Infection and inflammatory reaction due to indwelling urethral catheter, subsequent encounter; N39.0 - Urinary tract infection, site not specified Code(s): N39.0 - Urinary tract infection, site not specified Status: Acute Assessment and Plan: patient with chronic indwelling Avendaño catheter on arrival was cloudy with clots hematuria, and odorous smell patient reports not been changed since August. Initial Avendaño exchange done in the emergency department but was still leaking around catheter replaced with a 24 [place] three-way will need intermittent flushing to clear clots. no previous urinalysis evaluation. urinalysis did not grow any bacteria showing normal baldemar but due to examination of initial urine and nitrate positive will continue to treat. blood cultures no growth acute 48 hours urine showed brown in color 3+ protein 3+ glucose 3+ blood nitrate positive, trace leukocyte greater than 75 WBC and 2+ bacteria, received dose of Levaquin in the ED * continue oral amoxicillin * Will need new Urologist at discharge (2) Decubitus ulcer: Qualifiers: Laterality: unspecified laterality Pressure injury location: buttock Pressure injury stage: stage 2 Qualified Code(s): L89.302 - Pressure ulcer of unspecified buttock, stage 2 Code(s): L89.90 - Pressure ulcer of unspecified site, unspecified stage Status: Acute Assessment and Plan: patient with stage II decubitus ulcer good granulation does not appear to be infected * Q 2 turns, offloading * alleyevn pad change daily or when soiled * wound consult was placed however we do not have wound and house will need to make an appointment at the outside Wound Clinic * blood sugar control for wound healing * Pain control (3) CVA (cerebral vascular accident): Code(s): I63.9 - Cerebral infarction, unspecified Status: Acute Assessment and Plan: patient suffered a acute CVA in August causing left-sided lower extremity weakness and flaccid left upper arm he states he has been bed-bound since then * continued ASA, Plavix, statin (4) HTN (hypertension): Code(s): I10 - Essential (primary) hypertension Status: Acute Assessment and Plan: BP elevated with tachycardia * added 3.125 Carvedilol b.i.d. * continue patient's amlodipine and lisinopril * monitor BP per unit protocol (5) HLD (hyperlipidemia): Code(s): E78.5 - Hyperlipidemia, unspecified Status: Acute Assessment and Plan: * resume atorvastatin (6) Diabetes mellitus: Code(s): E11.9 - Type 2 diabetes mellitus without complications Status: Acute Assessment and Plan: * continue patient's 10 unit long-acting insulin * moderate SSI * Accu-Cheks a.c. HS * hypoglycemic protocol * diabetic diet L Plan Code status: Full code per patient DVT prophylaxis: SCD's Stress ulcer prophylaxis: Protonix 40 daily PT/OT notes: PT/OT for placement Disposition: patient continues admission to the medical unit for further evaluation and treatment of urinary tract infection and sacral wound PT/OT has been ordered care coordination assisting with long-term placement Time Spent With Patient Time with patient: 15 - 25 minutes Subjective Date/time seen: 12/08/24 08:59 Interval history: patient is a 69-year-old male who was admitted for further evaluation and treat ment of urinary tract infection and decubitus ulcer. Patient is bed-bound post CVA from August 2024. 12/08/2024: Patient in no acute distress denied CP, SOB, N/V or pain. Labs and vitals reviewed BP elevated with tachycardia. No other complaints Review of Systems Review of Systems: All systems reviewed & are unremarkable except as noted in HPI and below Exam Const: General: comfortable, no acute distress and well nourished Nutritional Appearance: well nourished Orientation/consciousness: patient oriented x3 Limitations: no limitations HENMT: Head: normal to inspection Ears: TM's normal bilaterally Face/Nose/Sinus: Normal nares present Mouth: Yes moist mucous membranes Eyes: General: appearance normal, both eyes and all related structures Conjunctivae: conjunctivae normal Sclera: sclerae normal Pupils: Equal, round and reactive pupils present EOM: EOMs intact bilaterally Neck: Neck: normal visual inspection, supple and no JVD Chest: Chest palpation & inspection: normal inspection of the chest Resp: Effort & Inspection: normal respiratory effort Auscultation: clear to auscultation bilaterally Cardio: Rate: regular rate and tachycardic Rhythm: regular rhythm GI: Auscultation: normal bowel sounds Rectal Exam: normal sphincter tone : General: Yes bladder normal to palpation and Yes no CVA tenderness Other: Avendaño catheter Urinary Catheter: Urinary Catheter: patent and draining and urine clear Back/Spine/Pelvis: Back: no CVA tenderness Skin: General skin exam: normal color and wounds noted (Stage II ) Wounds: no wounds and wounds noted (Stage II ) ulceration buttock bed granulating well, drainage, margins well approximated, without odor and open Other: stage II decubitus ulcer with some no redness or erythema no drainage. Neuro: General: patient oriented x3 Cranial nerves: Yes Equal, round and reactive pupils present Speech: normal speech Motor exam (neuro): Abnormal motor strength present Other: patient with left-sided weakness to lower extremity and flaccid left arm post CVA Extrem: General: normal to inspection and no clubbing, cyanosis or edema Psych: Mental Status: mental status grossly normal Affect: normal affect Objective Data Vital Signs Vital Signs: Vital Signs - 24 hr 12/07/24 16:00 12/08/24 00:00 12/08/24 08:00 Temperature 98.5 F 97.9 F 97.5 F L Pulse Rate 103 H 100 101 H Respiratory Rate 18 16 15 Blood Pressure 127/74 152/78 H 164/80 H Pulse Oximetry 94 93 92 Oxygen Delivery Room Air Room Air Room Air Intake/Output Intake/Output: Intake & Output 12/05/24 12/06/24 12/07/24 12/08/24 23:59 23:59 23:59 23:59 Intake Total 3940 1900 1960 240 Output Total 2500 2200 2350 1500 Balance 1440 -300 -390 -1260 Meds/Results Medications: Active Medications Generic Name Dose Route Start Last Admin Trade Name Freq PRN Reason Stop Dose Admin Acetaminophen 650 mg 12/02/24 23:28 Acetaminophen 325 Mg Tablet PO Q4-6H PRN pain 1-3 Amlodipine Besylate 10 mg 12/03/24 09:00 12/07/24 08:59 Amlodipine Besylate 5 Mg Tablet PO 10 mg DAILY MORALES Administration Amoxicillin/Clavulanate Potassium 1 tablet 12/06/24 09:00 12/07/24 20:49 Amoxicillin/Clavulanate K 875-125 Mg Tab PO 12/09/24 21:01 1 tablet Q12HR MORALES Administration Aspirin 81 mg 12/03/24 08:00 12/07/24 08:59 Aspirin 81 Mg Chewable Tablet PO 81 mg DAILY@0800 MORALES Administration Atorvastatin Calcium 40 mg 12/03/24 21:00 12/07/24 20:49 Atorvastatin 40 Mg Tablet PO 40 mg HS MORALES Administration Clopidogrel Bisulfate 75 mg 12/03/24 09:00 12/07/24 08:59 Clopidogrel Bisulfate 75 Mg Tablet PO 75 mg DAILY MORALES Administration Dextrose 12.5 gm 12/02/24 23:28 Dextrose 50% 25 Gm/50 Ml Syringe IV PUSH PRN PRN Hypoglycemia Protocol Docusate Sodium 100 mg 12/03/24 09:00 12/07/24 17:22 Docusate Sodium 100 Mg Capsule PO 100 mg BID MORALES Administration Gabapentin 300 mg 12/03/24 09:00 12/07/24 17:22 Gabapentin 300 Mg Capsule PO 300 mg BID MORALES Administration Glucagon 1 mg 12/02/24 23:28 Glucagon For Inj 1 Mg Vial IM PRN PRN Hypoglycemia Protocol Glucose 15 gm 12/02/24 23:28 Glucose Oral Gel 15 Gm Of Glucse In 37.5 Gm Tube PO PRN PRN Hypoglycemia Protocol Dextrose 1,000 mls @ 100 mls/hr 12/02/24 23:28 Dextrose 5% 1,000 Ml IVPB PRN PRN Hypoglycemia Protocol Insulin Glargine 10 units 12/03/24 09:00 12/07/24 08:58 Insulin Glargine (*Bkc) 1,000 Units/10 Ml Vial SUB-Q 10 units DAILY MORALES Administration Insulin Human Lispro 3 - 6 units 12/03/24 08:00 12/08/24 07:49 Insulin Human Lispro (*Bkc) 1,000 Units/10 Ml Vial SUB-Q Not Given TIDWM [facility] Protocol Lisinopril 20 mg 12/03/24 09:00 12/07/24 20:49 Lisinopril 20 Mg Tablet PO 20 mg Q12HR MORALES Administration Magnesium Hydroxide 30 ml 12/02/24 23:24 Magnesium Hydroxide Susp 30 Ml Udc PO DAILY PRN Constipation Morphine Sulfate 2 mg 12/02/24 23:24 Morphine Sulfate (*Crx) 2 Mg/Ml Inj IV PUSH Q4H PRN Pain Rated 7-10 Multivitamins/Calcium 1 tablet 12/03/24 09:00 12/07/24 08:59 Therapeutic Multivitamins/Minerals Tab (*Bkc) PO 1 tablet DAILY MORALES Administration Naloxone HCl 0.1 mg 12/02/24 23:24 Naloxone Hcl 0.4 Mg/Ml Vial IV PUSH Q2M PRN Opiate Reversal Nicotine 1 patch 12/02/24 23:35 12/07/24 08:58 Nicotine (*Pbkc) 14 Mg Patch TRANSDERM 1 patch DAILY MORALES Administration Ondansetron HCl 4 mg 12/03/24 08:03 Ondansetron Inj 4 Mg/2 Ml Vial IV PUSH Q6H PRN Nausea And Vomiting Senna/Docusate Sodium 1 tab 12/02/24 23:28 Senna/Docusate Sodium Tablet PO BID PRN constipation Tramadol HCl 50 mg 12/02/24 23:28 12/06/24 20:25 Tramadol Hcl (*Crx) 50 Mg Tablet PO 50 mg Q6-8H PRN Administration pain 4-6 Labs Labs: Laboratory Results - last 24 hr 12/07/24 12/07/24 12/07/24 11:55 17:07 21:00 WBC RBC Hgb Hct MCV MCH MCHC RDW Plt Count MPV Sodium Potassium Chloride Carbon Dioxide Anion Gap BUN Creatinine Estim Creat Clear Calc Estimated GFR Glucose POC Capillary Glucose 211 H 131 H 250 H Calculated Osmolality Calcium Total Bilirubin AST ALT Alkaline Phosphatase Total Protein Albumin 12/08/24 05:33 WBC 7.8 RBC 4.07 L Hgb 11.4 L Hct 34.9 L MCV 85.7 MCH 28.0 MCHC 32.7 RDW 12.7 Plt Count 345 MPV 9.3 Sodium 136 L Potassium 4.0 Chloride 103 Carbon Dioxide 32 H Anion Gap 1 L BUN 10 Creatinine 0.82 Estim Creat Clear Calc 83 Estimated GFR > 60 Glucose 149 H POC Capillary Glucose Calculated Osmolality 284 L Calcium 9.5 Total Bilirubin 0.5 AST 16 L ALT 9 Alkaline Phosphatase 113 Total Protein 5.9 L Albumin 2.9 L Quality VTE Prophylaxis VTE prophylaxis: mechanical ordered -Patient's previous records reviewed on admission -ER notes reviewed in detail on admission -discussed all findings and current treatment plan with patient/Family/POA -Consultations reviewed for recommendations -Patient's disposition for safe discharge discussed with case aide Dictation performed by [employer] direct speech recognition software, therefore trolley operator variants and typographical errors may occur. Hospitalist MIPS Advance Care Plan I have confirmed that the patient's Advanced Care Plan is present, code status is documented, or surrogate decision maker is listed in patient medical record.: Yes Medication Reconciliation I have utilized all available resources to obtain, update and review the patients current medications (includes all prescriptions, OTC, herbals, cannabis, and nutritional supplements).: Yes The patient is not eligible for med reconciliation; the patient is in a emergent medical situation where delaying treatment would jeopardize the patients health.: No
[2024-12-08] MEDS: lisinopriL 20 MG TABLET PO ×2 (09:39→21:01)
[2024-12-08] MEDS: ASPIRIN 81 MG CHEWABLE TABLET PO (09:39)
[2024-12-08] MEDS: AMOXICILLIN/CLAVULANATE K 875-125 MG TAB 1 TABLET PO ×2 (09:39→21:00)
[2024-12-08] MEDS: NICOTINE (*PBKC) 14 MG PATCH 1 PATCH TRANSDERM (09:39)
[2024-12-08] MEDS: amLODIPine BESYLATE 5 MG TABLET 10 MG PO (09:39)
[2024-12-08] MEDS: THERAPEUTIC MULTIVITAMINS/MINERALS TAB (*BKC) 1 TABLET PO (09:39)
[2024-12-08] MEDS: CLOPIDOGREL BISULFATE 75 MG TABLET PO (09:39)
[2024-12-08] MEDS: GABAPENTIN 300 MG CAPSULE PO ×2 (09:39→17:09)
[2024-12-08] MEDS: INSULIN GLARGINE (*BKC) 1,000 UNITS/10 ML VIAL 10 UNITS SUB-Q (09:51)
[2024-12-08 09:59] VITALS: PULSE 103
[2024-12-08] MEDS: carvediloL 3.125 MG TABLET PO ×2 (09:59→21:01)
[2024-12-08 12:06] LABS: Glucose Point of Care 327 mg/dl (65-105)
[2024-12-08] MEDS: INSULIN HUMAN LISPRO (*BKC) 1,000 UNITS/10 ML VIAL SUB-Q ×2 (12:07→17:09)
[2024-12-08 16:00] VITALS: BP 154/81; PULSE 88; RESP 17; TEMP 36.1; O2SAT 97
[2024-12-08 17:05] LABS: Glucose Point of Care 249 mg/dl (65-105)
[2024-12-08] MEDS: traMADol HCL (*CRX) 50 MG TABLET PO (21:00)
[2024-12-08 21:01] VITALS: PULSE 96
[2024-12-08] MEDS: ATORVASTATIN 40 MG TABLET PO (21:01)
[2024-12-08 21:05] LABS: Glucose Point of Care 194 mg/dl (65-105)
[2024-12-09] VITALS: BP 123/73; PULSE 96; RESP 16; TEMP 36.6; O2SAT 93
[2024-12-09 05:40] LABS: Hematocrit 35.6 % (37.0-46.0); Hemoglobin 11.9 g/dL (12.4-15.3); Mean Corpuscular HGB Conc 33.4 g/dL (32-36); Mean Corpuscular Hemoglobin 28.5 pg (27.0-31.0); Mean Corpuscular Volume 85.2 fL (78.0-102.0); Platelet Count Result 355 K/mm3 (150-420); Red Blood Count 4.18 M/mm3 (4.70-6.10); Red Cell Distribution Width 12.8 % (11.6-14.4); White Blood Count 11.1 K/mm3 (4.8-10.8)
[2024-12-09 05:52] LABS: Alanine Aminotransferase 12 U/L (6-50); Albumin Level 3.2 g/dL (3.5-5.1); Alkaline Phosphatase 104 U/L (38-126); Anion Gap 1 mmol/L (4-12); Aspartate Amino Transferase 22 U/L (17-59); Bilirubin,Total 0.5 mg/dL (0.2-1.3); Blood Urea Nitrogen 11 mg/dL (9-20); Calcium 9.4 mg/dL (8.4-10.2); Carbon Dioxide 29 mmol/L (22-30); Chloride 104 mmol/L (98-107); Estimated CRCL calculation 83 ml/min; Estimated Glomerular Filt Rate > 60; Glucose 167 mg/dL (65-110); Osmolality Calculated 281 mOsm/kg (285-295); Sodium 134 mmol/L (137-145); Total Protein 6.3 g/dL (6.3-8.2)
[2024-12-09 07:44] LABS: Glucose Point of Care 165 mg/dl (65-105)
[2024-12-09 08:00] VITALS: BP 150/94; PULSE 86; RESP 20; TEMP 30.5; O2SAT 97
--- NOTE | 2024-12-09 09:03 | P.PNIM_ITS ---
Progress Note: A&P Assessment and Plan (1) UTI (urinary tract infection): Qualifiers: Encounter type: subsequent encounter Indwelling urinary catheter type: indwelling urethral catheter Urinary tract infection type: catheter-associated UTI Qualified Code(s): T83.511D - Infection and inflammatory reaction due to indwelling urethral catheter, subsequent encounter; N39.0 - Urinary tract infection, site not specified Code(s): N39.0 - Urinary tract infection, site not specified Status: Acute Assessment and Plan: patient with chronic indwelling Azul catheter on arrival was cloudy with clots hematuria, and odorous smell patient reports not been changed since August. Initial Azul exchange done in the emergency department but was still leaking around catheter replaced with a 24 [place] three-way will need intermittent flushing to clear clots. no previous urinalysis evaluation. urinalysis did not grow any bacteria showing normal baldemar but due to examination of initial urine and nitrate positive will continue to treat. blood cultures no growth acute 48 hours urine showed brown in color 3+ protein 3+ glucose 3+ blood nitrate positive, trace leukocyte greater than 75 WBC and 2+ bacteria, received dose of Levaquin in the ED * final culture sensitivity grew Providencia stuartii * switch to oral Bactrim only oral option x 7 days/14 doses starting 12/09/2024 * Will need new Urologist at discharge (2) Decubitus ulcer: Qualifiers: Laterality: unspecified laterality Pressure injury location: buttock Pressure injury stage: stage 2 Qualified Code(s): L89.302 - Pressure ulcer of unspecified buttock, stage 2 Code(s): L89.90 - Pressure ulcer of unspecified site, unspecified stage Status: Acute Assessment and Plan: patient with stage II decubitus ulcer good granulation does not appear to be infected * Q 2 turns, offloading * alleyevn pad change daily or when soiled * wound consult was placed however we do not have wound and house will need to make an appointment at the outside Wound Clinic * blood sugar control for wound healing * Pain control (3) CVA (cerebral vascular accident): Code(s): I63.9 - Cerebral infarction, unspecified Status: Acute Assessment and Plan: patient suffered a acute CVA in August causing left-sided lower extremity weakness and flaccid left upper arm he states he has been bed-bound since then * continued ASA, Plavix, statin (4) HTN (hypertension): Code(s): I10 - Essential (primary) hypertension Status: Acute Assessment and Plan: BP elevated with tachycardia * added 3.125 Carvedilol b.i.d. * continue patient's amlodipine and lisinopril * monitor BP per unit protocol (5) HLD (hyperlipidemia): Code(s): E78.5 - Hyperlipidemia, unspecified Status: Acute Assessment and Plan: * resume atorvastatin (6) Diabetes mellitus: Code(s): E11.9 - Type 2 diabetes mellitus without complications Status: Acute Assessment and Plan: * continue patient's 10 unit long-acting insulin * moderate SSI * Accu-Cheks a.c. HS * hypoglycemic protocol * diabetic diet Plan Code status: Full code per patient DVT prophylaxis: SCD's Stress ulcer prophylaxis: Protonix 40 daily PT/OT notes: PT/OT for placement Disposition: patient continues admission to the medical unit for further evaluation and treatment of urinary tract infection and sacral wound PT/OT has been ordered care coordination assisting with long-term placement Time Spent With Patient Time with patient: 15 - 25 minutes Subjective Date/time seen: 12/09/24 09:03 Interval history: patient is a 69-year-old male who was admitted for further evaluation and treatment of urinary tract infection and decubitus ulcer. Patient is bed-bound post CVA from August 2024. 12/09/2024: Patient reports his butt hurts secondary to the Decubitus ulcer repositioning no change from admission. Denies any other complaints Labs/vitals reviewed good appetite and urine clear and yellow patent azul catheter. Review of Systems Review of Systems: All systems reviewed & are unremarkable except as noted in HPI and below Exam Const: General: comfortable, no acute distress and well nourished Nutritional Appearance: well nourished Orientation/consciousness: patient oriented x3 Limitations: no limitations HENMT: Head: normal to inspection Ears: TM's normal bilaterally Face/Nose/Sinus: Normal nares present Mouth: Yes moist mucous membranes Eyes: General: appearance normal, both eyes and all related structures Conjunctivae: conjunctivae normal Sclera: sclerae normal Pupils: Equal, round and reactive pupils present EOM: EOMs intact bilaterally Neck: Neck: normal visual inspection, supple and no JVD Chest: Chest palpation & inspection: normal inspection of the chest Resp: Effort & Inspection: normal respiratory effort Auscultation: clear to auscultation bilaterally Cardio: Rate: regular rate and tachycardic Rhythm: regular rhythm GI: Auscultation: normal bowel sounds Rectal Exam: normal sphincter tone : General: Yes bladder normal to palpation and Yes no CVA tenderness Other: Azul catheter Urinary Catheter: Urinary Catheter: patent and draining and urine clear Back/Spine/Pelvis: Back: no CVA tenderness Skin: General skin exam: normal color and wounds noted (Stage II ) Wounds: no wounds and wounds noted (Stage II ) ulceration buttock bed granulating well, drainage, margins well approximated, without odor and open Other: stage II decubitus ulcer with some no redness or erythema no drainage. Neuro: General: patient oriented x3 Cranial nerves: Yes Equal, round and reactive pupils present Speech: normal speech Motor exam (neuro): Abnormal motor strength present Other: patient with left-sided weakness to lower extremity and flaccid left arm post CVA Extrem: General: normal to inspection and no clubbing, cyanosis or edema Psych: Mental Status: mental status grossly normal Affect: normal affect Objective Data Vital Signs Vital Signs: Vital Signs - 24 hr 12/08/24 09:59 12/08/24 16:00 12/08/24 21:01 Temperature 97 F L Pulse Rate 103 H 88 96 Respiratory Rate 17 Blood Pressure 154/81 H Pulse Oximetry 97 Oxygen Delivery Room Air 12/09/24 00:00 Temperature 97.9 F Pulse Rate 96 Respiratory Rate 16 Blood Pressure 123/73 Pulse Oximetry 93 Oxygen Delivery Room Air Intake/Output Intake/Output: Intake & Output 12/06/24 12/07/24 12/08/24 12/09/24 23:59 23:59 23:59 23:59 Intake Total 1900 1960 1540 150 Output Total 2200 2350 2350 800 Balance -300 -390 -810 -650 Meds/Results Medications: Active Medications Generic Name Dose Route Start Last Admin Trade Name Freq PRN Reason Stop Dose Admin Acetaminophen 650 mg 12/02/24 23:28 Acetaminophen 325 Mg Tablet PO Q4-6H PRN pain 1-3 Amlodipine Besylate 10 mg 12/03/24 09:00 12/08/24 09:39 Amlodipine Besylate 5 Mg Tablet PO 10 mg DAILY MORALES Administration Amoxicillin/Clavulanate Potassium 1 tablet 12/06/24 09:00 12/08/24 21:00 Amoxicillin/Clavulanate K 875-125 Mg Tab PO 12/09/24 21:01 1 tablet Q12HR MORALES Administration Aspirin 81 mg 12/03/24 08:00 12/08/24 09:39 Aspirin 81 Mg Chewable Tablet PO 81 mg DAILY@0800 MORALES Administration Atorvastatin Calcium 40 mg 12/03/24 21:00 12/08/24 21:01 Atorvastatin 40 Mg Tablet PO 40 mg HS MORALES Administration Carvedilol 3.125 mg 12/08/24 09:00 12/08/24 21:01 Carvedilol 3.125 Mg Tablet PO 3.125 mg Q12HR MORALES Administration Clopidogrel Bisulfate 75 mg 12/03/24 09:00 12/08/24 09:39 Clopidogrel Bisulfate 75 Mg Tablet PO 75 mg DAILY MORALES Administration Dextrose 12.5 gm 12/02/24 23:28 Dextrose 50% 25 Gm/50 Ml Syringe IV PUSH PRN PRN Hypoglycemia Protocol Docusate Sodium 100 mg 12/03/24 09:00 12/08/24 17:09 Docusate Sodium 100 Mg Capsule PO Not Given BID MORALES Gabapentin 300 mg 12/03/24 09:00 12/08/24 17:09 Gabapentin 300 Mg Capsule PO 300 mg BID MORALES Administration Glucagon 1 mg 12/02/24 23:28 Glucagon For Inj 1 Mg Vial IM PRN PRN Hypoglycemia Protocol Glucose 15 gm 12/02/24 23:28 Glucose Oral Gel 15 Gm Of Glucse In 37.5 Gm Tube PO PRN PRN Hypoglycemia Protocol Dextrose 1,000 mls @ 100 mls/hr 12/02/24 23:28 Dextrose 5% 1,000 Ml IVPB PRN PRN Hypoglycemia Protocol Insulin Glargine 10 units 12/03/24 09:00 12/08/24 09:51 Insulin Glargine (*Bkc) 1,000 Units/10 Ml Vial SUB-Q 10 units DAILY MORALES Administration Insulin Human Lispro 3 - 6 units 12/03/24 08:00 12/08/24 17:09 Insulin Human Lispro (*Bkc) 1,000 Units/10 Ml Vial SUB-Q 3 units TIDWM MORALES Administration Protocol Lisinopril 20 mg 12/03/24 09:00 12/08/24 21:01 Lisinopril 20 Mg Tablet PO 20 mg Q12HR MORALES Administration Magnesium Hydroxide 30 ml 12/02/24 23:24 Magnesium Hydroxide Susp 30 Ml Udc PO DAILY PRN Constipation Morphine Sulfate 2 mg 12/02/24 23:24 Morphine Sulfate (*Crx) 2 Mg/Ml Inj IV PUSH Q4H PRN Pain Rated 7-10 Multivitamins/Calcium 1 tablet 12/03/24 09:00 12/08/24 09:39 Therapeutic Multivitamins/Minerals Tab (*Bkc) PO 1 tablet DAILY MORALES Administration Naloxone HCl 0.1 mg 12/02/24 23:24 Naloxone Hcl 0.4 Mg/Ml Vial IV PUSH Q2M PRN Opiate Reversal Nicotine 1 patch 12/02/24 23:35 12/08/24 09:39 Nicotine (*Pbkc) 14 Mg Patch TRANSDERM 1 patch DAILY MORALES Administration Ondansetron HCl 4 mg 12/03/24 08:03 Ondansetron Inj 4 Mg/2 Ml Vial IV PUSH Q6H PRN Nausea And Vomiting Senna/Docusate Sodium 1 tab 12/02/24 23:28 Senna/Docusate Sodium Tablet PO BID PRN constipation Tramadol HCl 50 mg 12/02/24 23:28 12/08/24 21:00 Tramadol Hcl (*Crx) 50 Mg Tablet PO 50 mg Q6-8H PRN Administration pain 4-6 Labs Labs: Laboratory Results - last 24 hr 12/08/24 12/08/24 12/08/24 12:04 16:59 20:59 WBC RBC Hgb Hct MCV MCH MCHC RDW Plt Count MPV Sodium Potassium Chloride Carbon Dioxide Anion Gap BUN Creatinine Estim Creat Clear Calc Estimated GFR Glucose POC Capillary Glucose 327 H 249 H 194 H Calculated Osmolality Calcium Total Bilirubin AST ALT Alkaline Phosphatase Total Protein Albumin 12/09/24 12/09/24 05:30 07:43 WBC 11.1 H RBC 4.18 L Hgb 11.9 L Hct 35.6 L MCV 85.2 MCH 28.5 MCHC 33.4 RDW 12.8 Plt Count 355 MPV 9.0 Sodium 134 L Potassium 4.0 Chloride 104 Carbon Dioxide 29 Anion Gap 1 L BUN 11 Creatinine 0.81 Estim Creat Clear Calc 83 Estimated GFR > 60 Glucose 167 H POC Capillary Glucose 165 H Calculated Osmolality 281 L Calcium 9.4 Total Bilirubin 0.5 AST 22 ALT 12 Alkaline Phosphatase 104 Total Protein 6.3 Albumin 3.2 L Quality VTE Prophylaxis VTE prophylaxis: mechanical ordered -Patient's previous records reviewed on admission -ER notes reviewed in detail on admission -discussed all findings and current treatment plan with patient/Family/POA -Consultations reviewed for recommendations -Patient's disposition for safe discharge discussed with vocational case manager Dictation performed by [employer] direct speech recognition software, therefore accessories repairer variants and typographical errors may occur. Hospitalist MIPS Advance Care Plan I have confirmed that the patient's Advanced Care Plan is present, code status is documented, or surrogate decision maker is listed in patient medical record.: Yes Medication Reconciliation I have utilized all available resources to obtain, update and review the patients current medications (includes all prescriptions, OTC, herbals, cannabis, and nutritional supplements).: Yes The patient is not eligible for med reconciliation; the patient is in a emergent medical situation where delaying treatment would jeopardize the patients health.: No
[2024-12-09] MEDS: INSULIN GLARGINE (*BKC) 1,000 UNITS/10 ML VIAL 10 UNITS SUB-Q (09:07)
[2024-12-09 09:08] VITALS: PULSE 88
[2024-12-09] MEDS: CLOPIDOGREL BISULFATE 75 MG TABLET PO (09:08)
[2024-12-09] MEDS: carvediloL 3.125 MG TABLET PO ×2 (09:08→20:28)
[2024-12-09] MEDS: amLODIPine BESYLATE 5 MG TABLET 10 MG PO (09:08)
[2024-12-09] MEDS: AMOXICILLIN/CLAVULANATE K 875-125 MG TAB 1 TABLET PO (09:08)
[2024-12-09] MEDS: THERAPEUTIC MULTIVITAMINS/MINERALS TAB (*BKC) 1 TABLET PO (09:08)
[2024-12-09] MEDS: GABAPENTIN 300 MG CAPSULE PO ×2 (09:09→17:56)
[2024-12-09] MEDS: NICOTINE (*PBKC) 14 MG PATCH 1 PATCH TRANSDERM (09:09)
[2024-12-09] MEDS: lisinopriL 20 MG TABLET PO ×2 (09:09→20:28)
[2024-12-09] MEDS: DOCUSATE SODIUM 100 MG CAPSULE PO (09:09)
[2024-12-09] MEDS: ASPIRIN 81 MG CHEWABLE TABLET PO (09:10)
[2024-12-09] MEDS: ACETAMINOPHEN 325 MG TABLET 650 MG PO ×2 (09:16→20:32)
[2024-12-09 11:46] LABS: Glucose Point of Care 277 mg/dl (65-105)
[2024-12-09] MEDS: SULFAMETHOXAZOLE/TRIMETHOPRIM 800/160 MG DS TABLET 1 TAB PO ×2 (11:59→20:28)
[2024-12-09] MEDS: INSULIN HUMAN LISPRO (*BKC) 1,000 UNITS/10 ML VIAL SUB-Q (11:59)
[2024-12-09 16:00] VITALS: BP 109/61; PULSE 88; RESP 18; TEMP 36.5; O2SAT 96
[2024-12-09 17:10] LABS: Glucose Point of Care 194 mg/dl (65-105)
[2024-12-09 20:00] VITALS: PULSE 86; RESP 18; O2SAT 96
[2024-12-09 20:28] VITALS: PULSE 88
[2024-12-09] MEDS: ATORVASTATIN 40 MG TABLET PO (20:28)
[2024-12-09 21:38] LABS: Glucose Point of Care 218 mg/dl (65-105)
[2024-12-09] MEDS: traMADol HCL (*CRX) 50 MG TABLET PO (22:42)
[2024-12-10] VITALS: BP 149/70; PULSE 87; RESP 16; TEMP 36.9; O2SAT 95
[2024-12-10 07:07] LABS: Hematocrit 33.4 % (37.0-46.0); Hemoglobin 10.8 g/dL (12.4-15.3); Mean Corpuscular HGB Conc 32.3 g/dL (32-36); Mean Corpuscular Hemoglobin 27.9 pg (27.0-31.0); Mean Corpuscular Volume 86.3 fL (78.0-102.0); Platelet Count Result 343 K/mm3 (150-420); Red Blood Count 3.87 M/mm3 (4.70-6.10); Red Cell Distribution Width 12.8 % (11.6-14.4); White Blood Count 8.8 K/mm3 (4.8-10.8)
[2024-12-10 07:34] LABS: Alanine Aminotransferase 13 U/L (6-50); Alkaline Phosphatase 96 U/L (38-126); Anion Gap 2 mmol/L (4-12); Aspartate Amino Transferase 21 U/L (17-59); Bilirubin,Total 0.4 mg/dL (0.2-1.3); Blood Urea Nitrogen 17 mg/dL (9-20); Calcium 9.2 mg/dL (8.4-10.2); Carbon Dioxide 29 mmol/L (22-30); Chloride 102 mmol/L (98-107); Estimated CRCL calculation 54 ml/min; Estimated Glomerular Filt Rate 56; Glucose 138 mg/dL (65-110); Osmolality Calculated 279 mOsm/kg (285-295); Potassium 4.2 mmol/L (3.4-5.0); Sodium 133 mmol/L (137-145); Total Protein 6.1 g/dL (6.3-8.2)
[2024-12-10 08:00] VITALS: BP 102/82; PULSE 78; RESP 20; TEMP 36.4; O2SAT 95
[2024-12-10] MEDS: NICOTINE (*PBKC) 14 MG PATCH 1 PATCH TRANSDERM (08:54)
[2024-12-10] MEDS: INSULIN GLARGINE (*BKC) 1,000 UNITS/10 ML VIAL 10 UNITS SUB-Q (08:54)
[2024-12-10 08:55] VITALS: PULSE 78
[2024-12-10] MEDS: carvediloL 3.125 MG TABLET PO (08:55)
[2024-12-10] MEDS: THERAPEUTIC MULTIVITAMINS/MINERALS TAB (*BKC) 1 TABLET PO (08:55)
[2024-12-10] MEDS: lisinopriL 20 MG TABLET PO (08:55)
[2024-12-10] MEDS: ASPIRIN 81 MG CHEWABLE TABLET PO (08:55)
[2024-12-10] MEDS: traMADol HCL (*CRX) 50 MG TABLET PO (08:55)
[2024-12-10] MEDS: amLODIPine BESYLATE 5 MG TABLET 10 MG PO (08:55)
[2024-12-10] MEDS: SULFAMETHOXAZOLE/TRIMETHOPRIM 800/160 MG DS TABLET 1 TAB PO (08:55)
[2024-12-10] MEDS: CLOPIDOGREL BISULFATE 75 MG TABLET PO (08:55)
[2024-12-10] MEDS: GABAPENTIN 300 MG CAPSULE PO (08:55)
--- NOTE | 2024-12-10 09:11 | P.DS_ITS ---
DS: Admitting Diagnosis Discharge Date 12/10/2024 Admitting Diagnosis UTI/Decubitus Ulcer DS: Discharge Diagnosis Discharge Diagnosis (1) UTI (urinary tract infection): Qualifiers: Encounter type: subsequent encounter Indwelling urinary catheter type: indwelling urethral catheter Urinary tract infection type: catheter-associated UTI Qualified Code(s): T83.511D - Infection and inflammatory reaction due to indwelling urethral catheter, subsequent encounter; N39.0 - Urinary tract infection, site not specified Code(s): N39.0 - Urinary tract infection, site not specified Status: Acute Assessment and Plan: * final culture sensitivity grew Providencia stuartii * switch to oral Bactrim only oral option x 7 days/14 doses starting 12/09/2024 * Will need new Urologist at discharge (2) Decubitus ulcer: Qualifiers: Laterality: unspecified laterality Pressure injury location: buttock Pressure injury stage: stage 2 Qualified Code(s): L89.302 - Pressure ulcer of unspecified buttock, stage 2 Code(s): L89.90 - Pressure ulcer of unspecified site, unspecified stage Status: Acute Assessment and Plan: patient with stage II decubitus ulcer * Q 2 turns, offloading * alleyevn pad change daily or when soiled * wound consult was placed however we do not have wound and house will need to make an appointment at the outside Wound Clinic * blood sugar control for wound healing * Pain control (3) CVA (cerebral vascular accident): Code(s): I63.9 - Cerebral infarction, unspecified Status: Acute Assessment and Plan: patient suffered a acute CVA in August causing left-sided lower extremity weakness and flaccid left upper arm he states he has been bed-bound since then * continued ASA, Plavix, statin (4) HTN (hypertension): Code(s): I10 - Essential (primary) hypertension Status: Acute Assessment and Plan: BP elevated with tachycardia * added 3.125 Carvedilol b.i.d. * continue patient's amlodipine and lisinopril * monitor BP per unit protocol (5) HLD (hyperlipidemia): Code(s): E78.5 - Hyperlipidemia, unspecified Status: Acute Assessment and Plan: * resume atorvastatin (6) Diabetes mellitus: Code(s): E11.9 - Type 2 diabetes mellitus without complications Status: Acute Assessment and Plan: * continue patient's 10 unit long-acting insulin * moderate SSI * Accu-Cheks a.c. HS * hypoglycemic protocol * diabetic diet Plan Disposition: discharge to SNF DS: Summary Hospital Course Reason for hospitalization: UTI/Decubitus Hospital Course: Admission: Patient is a 61-year-old male who presented to [place] emergency department via family with complaints of malfunction of his Avendaño catheter as well as sacral wounds and inability to care for patient at home. Per patient he was residing in [place] at a fpc and rehab after he sustained a acute CVA causing his left side to be flaccid as well as urinary complications at which time he also developed a sacral wound due to being bed-bound. Per report from patient his sister initially had plan to have him stay with her but when attempting to get a medical bed with trapeze and medical equipment she was unsuccessful. family had went to [place] and signed patient out AMA from the rehab facility and brought him back up to [place] once they brought him back to their home they found that could not care for him and he was brought to the emergency department. patient's initial labs unremarkable however was found to have an odorous, cloudy with clots noted in his Avendaño catheter and UA was suspicious for urinary tract infection. sacral wound had clean borders with granulation no signs of acute infection patient afebrile and normal WBC. Avendaño catheter was exchanged on stairs and patient was admitted to the medical unit for further evaluation and treatment. patient reports past medical history of CVA, hypertension and diabetes. patient denied any chest pain shortness a breath, nausea, vomiting, abdominal pain, visual changes but did report moderate pain to left side and sacral area. Hospital course: Patient was treated for urinary tract infection as well as decubitus ulcer during his hospitalization final culture sensitivity grew Providencia stuartii switch to oral Bactrim only oral option x 7 days/14 doses starting 12/09/2024. We continued wound management to Decubitus ulcer with Q2hr turns. He labs and vitals remained stable and he was seen by PT/OT for SNF placement. Patient with no complaints during hospitalization. Avendaño catheter exchanged and draining clear yellow urine with no further problems plan for follow-up with a new urologist after discharge. Patient was accepted to [facility] [place] rehab and discharged via ambulance he would benefit from a hospital bed with trapeze to assist in repositioning to relieve pressure from wounds. Status at Discharge Functional status at discharge: bed bound Overall status at discharge: patient is back to baseline Time Spent with Patient Time attestation: Total time spent providing and/or coordinating discharge services: Time spent: Greater than 30 minutes Exam Const: General: comfortable, no acute distress and well nourished Nutritional Appearance: well nourished Orientation/consciousness: patient oriented x3 Limitations: no limitations HENMT: Head: normal to inspection Ears: TM's normal bilaterally Face/Nose/Sinus: Normal nares present Mouth: Yes moist mucous membranes Eyes: General: appearance normal, both eyes and all related structures Conjunctivae: conjunctivae normal Sclera: sclerae normal Pupils: Equal, round and reactive pupils present EOM: EOMs intact bilaterally Neck: Neck: normal visual inspection, supple and no JVD Chest: Chest palpation & inspection: normal inspection of the chest Resp: Effort & Inspection: normal respiratory effort Auscultation: clear to auscultation bilaterally Cardio: Rate: regular rate and tachycardic Rhythm: regular rhythm GI: Auscultation: normal bowel sounds Rectal Exam: normal sphincter tone : General: Yes bladder normal to palpation and Yes no CVA tenderness Other: Avendaño catheter Urinary Catheter: Urinary Catheter: patent and draining and urine clear Back/Spine/Pelvis: Back: no CVA tenderness Skin: General skin exam: normal color and wounds noted (Stage II ) Wounds: no wounds and wounds noted (Stage II ) ulceration buttock bed granulating well, drainage, margins well approximated, without odor and open Other: stage II decubitus ulcer with some no redness or erythema no drainage. Neuro: General: patient oriented x3 Cranial nerves: Yes Equal, round and reactive pupils present Speech: normal speech Motor exam (neuro): Abnormal motor strength present Other: patient with left-sided weakness to lower extremity and flaccid left arm post CVA Extrem: General: normal to inspection and no clubbing, cyanosis or edema Psych: Mental Status: mental status grossly normal Affect: normal affect DS: Data Data Completed and Pending Labs on day of discharge: Labs from last 24 hours 12/10/24 12/09/24 12/09/24 06:48 21:36 17:05 WBC 8.8 RBC 3.87 L Hgb 10.8 L Hct 33.4 L MCV 86.3 MCH 27.9 MCHC 32.3 RDW 12.8 Plt Count 343 MPV 9.0 Sodium 133 L Potassium 4.2 Chloride 102 Carbon Dioxide 29 Anion Gap 2 L BUN 17 Creatinine 1.28 Estim Creat Clear Calc 54 Estimated GFR 56 L Glucose 138 H POC Capillary Glucose 218 H 194 H Calculated Osmolality 279 L Calcium 9.2 Total Bilirubin 0.4 AST 21 ALT 13 Alkaline Phosphatase 96 Total Protein 6.1 L Albumin 3.0 L 12/09/24 11:45 WBC RBC Hgb Hct MCV MCH MCHC RDW Plt Count MPV Sodium Potassium Chloride Carbon Dioxide Anion Gap BUN Creatinine Estim Creat Clear Calc Estimated GFR Glucose POC Capillary Glucose 277 H Calculated Osmolality Calcium Total Bilirubin AST ALT Alkaline Phosphatase Total Protein Albumin Discharge Plan Discharge Attending physician on discharge: Ziggy Duke Consulting providers: Gretchen Wilde; Madison Mendiola Discharging Clinician: Gretchen Wilde Anticipated Discharge Date/Time: 12/10/24 08:59 Patient Disposition: SNF Activity: as tolerated and other - see discharge instructions Diet: diabetic Discharge Instructions: UTI: * I have prescribed oral antibiotic therapy please completed as indicated * Will need new referral to a urologist outpatient * 4-6 week Avendaño catheter exchanges * Avendaño catheter care daily Decubitus Ulcer: You have a stage II decubitus ulcer * Q 2 turns, offloading * alleyevn pad change daily or when soiled * will need to make an appointment at the outside Wound Clinic * blood sugar control for wound healing * Pain control with Tramadol as needed CVA: * Continue your aspirin, Plavix, and atorvastatin How can you care for yourself at home? • Keep track of any new symptoms or changes in your symptoms. • Rest until you feel better. • Be safe with medicines. Take your medicines exactly as prescribed. Call your doctor if you think you are having a problem with your medicine. • Do not drive after taking a prescription pain medicine. • Ensure to follow-up with primary care physician as indicated and provide updated medication list provided to you at discharge. When should you call for help? Call 911 anytime you think you may need emergency care. For example, call if: • You passed out (lost consciousness). Call your doctor now or seek immediate medical care if: • You have new symptoms like fever, difficulty breathing, Chest pain, vomiting, or rash. • You have new or different pain. • You are confused and are having trouble thinking clearly. • Your symptoms are getting worse. Watch closely for changes in your health, and be sure to contact your doctor if: • You do not get better as expected. Patient Instructions: Avendaño Catheter Placement and Care (DC), Self Care Measures After a Stroke (DC), Stroke (DC), Catheter-associated Urinary Tract Infection (DC), Diabetes and Nutrition (DC), Type 2 Diabetes Management for Adults (DC) Patient Language: Kazakh Stand Alone Forms: General Discharge Information, [facility] Discharge Follow-up/Referrals: Emmanuel Graff, [Primary Care Provider] - Keep Reg. Scheduled Appt. Discharge Medications: New sulfamethoxazole-trimethoprim 800-160 mg Tablet 1 tab PO Q12HR Qty: 11 0RF carvedilol [Coreg] 3.125 mg Tablet 3.125 mg PO Q12HR Qty: 60 0RF Continued acetaminophen 325 mg capsule 650 mg PO Q4-6H PRN (Reason: pain) insulin lispro [Humalog U-100 Insulin] 100 unit/mL solution 1 sliding scale dose subcut USEASDIRECTD amlodipine 10 mg tablet 10 mg PO DAILY aspirin [Carli Chewable Aspirin] 81 mg tablet,chewable 81 mg PO DAILY atorvastatin [Lipitor] 40 mg tablet 40 mg PO HS insulin glargine [Lantus Solostar U-100 Insulin] 100 unit/mL (3 mL) insulin pen 10 unit subcut DAILY clopidogrel 75 mg tablet 75 mg PO DAILY gabapentin 300 mg capsule 300 mg PO BID lisinopril 20 mg tablet 20 mg PO BID DAILY VITAMIN FORMULA-MINERALS Tablet 1 tablet PO DAILY nicotine 14 mg/24 hr patch 24 hour 1 patch transdermal DAILY sennosides-docusate sodium 8.6-50 mg tablet 1 tab-cap PO BID PRN (Reason: constipation) tramadol 50 mg tablet 50 mg PO Q6-8H PRN (Reason: pain) Qty: 20 0RF Date of admission: 12/04/24 15:16 Primary Care Provider: Emmanuel Graff Admitting Provider: Ziggy Duke Attending physician on admission: Ziggy Duke Condition: Improved Quality VTE Prophylaxis VTE prophylaxis: mechanical ordered Hospitalist MIPS Heart Failure (Exclusion) Patient has history of Heart Transplant or Left Ventricular Assistive Device?: No IF YES, STOP HERE Heart Failure (Qualifier) Patient has current or prior documentation of LVEF less than or equal to 40%, or mod/servere depressed LVSF?: No IF NO, STOP HERE
--- NOTE | 2024-12-10 11:00 | PC.NURSE ---
[facility] called for transfer to [facility]. Called Angle/sister for verbal consent to send José by ambulance to . Lizzy states Yes, you may transfer him by ambulance She then states she would be here in 10 minutes.
--- NOTE | 2024-12-10 11:47 | PC.NURSE ---
Report called to Preeti at [facility]. Discharge instructions faxed to facility. [facility] transferring patient per stretcher. Family with patient in room, to meet patient at receiving facility
--- NOTE | 2024-12-10 14:52 | PC.NURSE ---
[address] moderate sliding scale insulin order to send to [place].
== END 2024-12-10 11:40 | DRG 699 ==
LOC: CHSED 23:23 → CHS2ND 12-03 07:20
PROVIDERS: Nurse Practitioner Family; Admitting Provider Internal Medicine; Emergency Provider Emergency Medicine; PCP Family Medicine; Visit Provider Internal Medicine
DX: T83.511A Infection and inflammatory reaction due to indwelling urethral catheter, initial encounter (principal); I69.354 Hemiplegia and hemiparesis following cerebral infarction affecting left non-dominant side; N39.0 Urinary tract infection, site not specified; L89.152 Pressure ulcer of sacral region, stage 2; B96.89 Other specified bacterial agents as the cause of diseases classified elsewhere; E11.9 Type 2 diabetes mellitus without complications; E78.5 Hyperlipidemia, unspecified; F17.210 Nicotine dependence, cigarettes, uncomplicated; I10 Essential (primary) hypertension; Z79.4 Long term (current) use of insulin; Z79.02 Long term (current) use of antithrombotics/antiplatelets; Z79.82 Long term (current) use of aspirin
CPT/HCPCS: 36415; 80053; 81001; 82948; 83605; 85025; 85027; 87040; 87077; 87086; 87088; 87186; 96361; 96365; 96375; 97162; 97166; 99285; A9270; G0378; J0696; J1815; J1956; J7030

== ENCOUNTER 2025-02-16 22:02 | Emergency (ER) | payer MEDICARE, SELFPAY ==
--- NOTE | ~2025-02-16 | CT_ITS ---
EXAMINATION: CT brain wo con DATE: 02/16/2025 22:50 INDICATION: Fall with head injury TECHNIQUE: Computed tomography (CT) of the head was performed without intravenous contrast. Sagittal and coronal reconstructions were performed. The mA was adjusted according to patient size. Iterative reconstruction technique was employed. The dose-length product was 756.67 mGy-cm. COMPARISON: None FINDINGS: No fracture. No acute intracranial hemorrhage, acute infarction or abnormal extra axial fluid collect ion. Large region of encephalomalacia involving portions of the right frontal, parietal and temporal lobes, the right insula and right basal ganglia consistent with infarct involving the right middle ce rebral artery vascular distribution. There is secondary atrophy related to a layering degeneration of the right cerebral peduncle. Additional small old lacunar infarcts at the left thalamus, left lentif orm nucleus and head of the left caudate nucleus. There is additional mild scattered white matter hyp oattenuation consistent with chronic small vessel ischemic disease. Expected mild ex vacuo dilation o f the right lateral ventricle relative to the left. No mass/mass effect. The orbits, paranasal sinuse s and mastoid air cells are normal. IMPRESSION: 1. No fracture or acute intracranial process. 2. 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 2. Additional small old lacunar infarcts at the left basal ganglia and thalamus. Reviewed, dictated and finalized at location A. IMPRESSION: 1. No fracture or acute intracranial process. 2. Large old infarct involving the right middle cerebral artery vascular distri bution. 2. Additional small old lacunar infarcts at the left basal ganglia and thalamus .
--- NOTE | ~2025-02-16 | CT_ITS ---
EXAMINATION: CT pelvis wo con DATE: 02/16/2025 22:49 INDICATION: Bilateral hip pain post fall TECHNIQUE: Computed tomography (CT) of the pelvis was performed without intravenous contrast. Automat ed exposure control and iterative reconstruction technique were employed.The dose-length product was 615.52 mGy-cm. COMPARISON: None FINDINGS: Bone alignment is normal. No fracture. Mild lower lumbar spondylosis with moderate to severe facet os teoarthritis. Polyarticular osteoarthritis, moderate at the right hip and bilateral sacroiliac joints and mild at the left hip. No hip joint effusions. Avendaño catheter in the bladder. Subcentimeter ball of stool at the rectum with some mild perirectal stranding could be seen with stercoral colitis. Norm al appendix. No free fluid in the pelvis. Fat-containing bilateral inguinal hernias, small on the rig ht and moderate sized on the left. No pathologically enlarged pelvic or inguinal lymphadenopathy. IMPRESSION: 1. Degenerative skeletal changes as detailed above. No acute osseous abnormality. Reviewed, dictated and finalized at location A. IMPRESSION: 1. Degenerative skeletal changes as detailed above. No acute osseous abnormalit y.
--- NOTE | ~2025-02-16 | XR_ITS ---
EXAMINATION: XR chest 1V portable DATE: 02/16/2025 22:21 INDICATION: Facial trauma post fall TECHNIQUE: frontal view of the chest was obtained. COMPARISON: None FINDINGS: The lungs are clear with no focal airspace opacities, pulmonary edema, pleural effusion or pneumothor ax. The cardiomediastinal silhouette is normal. Moderate thoracic spondylosis. IMPRESSION: 1. No acute cardiopulmonary disease. Reviewed, dictated and finalized at location A.
--- NOTE | ~2025-02-16 | CT_ITS ---
EXAMINATION: 1. CT facial & cervical spine wo DATE: 02/16/2025 22:48 INDICATION: Trauma with head injury TECHNIQUE: 1. Computed tomography (CT) of the maxillofacial region and of the cervical spine were performed with out intravenous contrast. Sagittal and coronal reconstructions of both regions were obtained. Automat ed exposure control and iterative reconstruction technique were employed. The dose-length product was 700.20 mGy-cm. COMPARISON: None. FINDINGS: Maxillofacial CT: No maxillofacial fractures. Specifically the nasal bones, mandible, zygomatic arches and gillette of the orbits and paranasal sinuses are all intact. Nasal septum is midline without fracture. Mastoid air c ells, middle ear cavities and paranasal sinuses are all clear. Extensive dental and periodontal disea se. Large old infarct in the right middle cerebral artery vascular distribution and additional small old lacunar infarcts at the left thalamus and left basal ganglia. Cervical spine CT: Straightening of the normal cervical lordosis. Vertebral body heights are normal. No fracture. Severe osteoarthritis at the atlantoaxial articulation. Severe disc height loss at C5-C6 and C6-C7. Moderat e disc height loss at C3-C4 and C7-T1. Mild disc height loss at C2-C3 and C4-C5. Posterior disc osteo phyte complexes resulting in moderate central canal stenosis at C5-C6 and mild central canal stenosis at the remaining levels from C3-C4 through C6-C7. There is multilevel severe bilateral cervical unco vertebral osteoarthritis. There is severe facet osteoarthritis on the left at C2-C3 and on the right at C3-C4, C4-C5 and C7-T1. Mild to moderate facet osteoarthritis the remaining cervical levels. There is moderate neural foraminal stenosis on the left at C3-C4, C5-C6 and on the the right at C3-C4 thro ugh C6-C7. Visualized portion of the upper lungs are clear. IMPRESSION: 1. No maxillofacial fractures. 2. Severe cervical spondylosis without acute osseous abnormality. Reviewed, dictated and finalized at location A.
[2025-02-16 22:02] VITALS: BP 133/78; PULSE 92; RESP 18; TEMP 36.6; O2SAT 92
--- OUTSIDE RECORDS SUMMARY | 2025-02-16 22:07 | XMS_ITS | Continuity of Care Document ---
Author Name [facility] Organization [facility] Care Team Providers Care Chief Scientific Officer Name Role Phone [facility] Unavailable Unavailable Problems Combined list of problems from Department of Defense and Veterans Affairs facilities. It does not include entries that were removed or entered in error. 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 Condition [facility] Obesity (SNOMED CT 855938514) Active Condition [facility] Refractive error Active Condition [facility] Tear film insufficiency Active Condition [facility] Tobacco use (SNOMED CT 593294558) Active Condition Apr 07, 2020 Entered By: ASHLEIGH DANG Comment: 30+ pack year smoker, switched to vaping January 2020 [facility] Hyperglycemia * (ICD-9-CM 790.29) Inactive Condition 12/08/2015 [facility] Mechanical low back pain Inactive Condition 12/08/2015 [facility] Other and unspecified hyperlipidemia (ICD-9-CM 272.4) Inactive Condition 12/08/2015 [facility] Diagnosis: ICD-10-CM R68.89 Other general symptoms and [...] to drug (finding) Indigestion active 2 N. [place] TIDE LAUNDRY DETERGENT Propensity to adverse reaction (finding) Urticaria active 2 N. [place] Immunizations Combined list of available immunizations from the Department of Defense and [facility] facilities. Immunization Series Date Given Administered By Site Reaction Lot Number CVX Code Drug Wide Load Escort Status Comments Source PNEUMOCOCCAL POLYSACCHARID E PPV23 2014 33 complet [facility] PNEUMOCOCCAL, UNSPECIFIED FORMULATION 2014 109 complet [facility] FLU,3 YRS (HISTORICAL) 2013 88 complet [facility] TD(ADULT) UNSPECIFIED FORMULATION 2011 139 complet [facility] Encounters Combined list of: 1) Encounters from Department of Veterans Affairs facilities going backup to the last 18 months, not all [place] inpatient encounters are included; 2) Encounters from the Department of [facility] facilities going backup to 280 months. Location Location Details Encounter Type Encounter Number Reason For Visit Attending Provider ADM Date DC Date Status Disposition Source N. [facility] Outpatient Encounter [id number] 08/17 [facility] N[facility] Outpatient Encounter [id number] 08/27 [facility] [id number] 10/01 [facility] N[facility] Outpatient Encounter [id number] Dimple ONEILL 10/04 N[facility] N[facility] Outpatient Encounter [id number] 10[facility] En[facility] [id number] 12/29 [facility] PH1 ASSMT&MGMT NQHP 5-10 [id number] Diagnos is: ICD-10- CM R68.89 Other general symptom s and signs SHORT,ISABELLA CATINA A 01/03 [facility] Outpatient Encounter [id number] 01/05 [facility] Outpatient Encounter [id number] 01/06 [facility] Outpatient Encounter [id number] DUNCAN,T ODD 01/06 [facility] Outpatient Encounter [id number] LYNDSEY ARANGO M 01/18 [facility] Outpatient Encounter [id number] LYNDSEY ARANGO M 01/19 [facility] N Social History Combined list of available smoking, tobacco, and other social history from Department of Defense and [facility] Affairs facilities. Social History Type Response Date Comment Sourc e Tobacco smoking status [facility] TOBACCO USE CURRENT NRT ACCEPT 08/11/2021 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
--- NOTE | 2025-02-16 22:13 | ED_ITS ---
HPI - Fall General Chief Complaint: Fall Stated Complaint: laceration Time Seen by Provider: 02/16/25 22:12 Source: patient Mode of arrival: ambulatory Limitations: no limitations History of Present Illness HPI Narrative: 69-year-old male, correction patient with a history of hypertension, dyslipidemia, polyneuropathy, CVA with left-sided weakness, neurogenic bladder, decubitus ulceration of the sacrum/ buttocks presents to the ED after he rolled off his bed and fell on his face. No loss of consciousness. He presents with -- superficial laceration of his nose bridge with swelling of the nose bridge -- no headache. No ENT bleeding. No neck pain. Chronic left shoulder pain. Chronic decubitus ulceration pain. MD complaint: fall Onset (ago): hour(s) ( 1 hour ago) Fall from: out of bed Fall witnessed: yes, by living facility staff Place fall occurred: correction/SNF Loss of consciousness: none Prolonged down time: no Symptoms prior to fall: none Location of injury: face Location of injury - extremities: Bilateral: knee Quality: aching Associated symptoms (after fall): other ( facial pain) Related Data Home Medications ?Medication ?Instructions ?Recorded ?Confirmed ?Last Taken ?Type acetaminophen 325 mg capsule 650 mg PO Q4-6H PRN pain 12/02/24 01/26/25 Unknown History amlodipine 10 mg tablet 10 mg PO DAILY 12/02/24 01/26/25 Unknown History aspirin 81 mg chewable tablet 81 mg PO DAILY 12/02/24 01/26/25 Unknown History (Carli Chewable Low Dose Aspirin) atorvastatin 40 mg tablet (Lipitor) 40 mg PO HS 12/02/24 01/26/25 Unknown History clopidogrel 75 mg tablet 75 mg PO DAILY 12/02/24 01/26/25 Unknown History insulin glargine 100 unit/mL (3 10 unit subcut DAILY 12/02/24 01/26/25 Unknown History mL) subcutaneous pen (Lantus Solostar U-100 Insulin) lisinopril 20 mg tablet 20 mg PO BID 12/02/24 01/26/25 Unknown History multivitamin with minerals (DAILY 1 tablet PO DAILY 12/02/24 01/26/25 Unknown History VITAMIN FORMULA-MINERALS tablet) nicotine 14 mg/24 hr daily 1 patch transdermal DAILY 12/02/24 01/26/25 Unknown History transdermal patch sennosides 8.6 mg-docusate sodium 1 tab-cap PO BID PRN constipation 12/02/24 01/26/25 Unknown History 50 mg tablet Allergies Allergy/AdvReac Type Severity Reaction Status Date / Time TIDE POWDER Allergy Intermediate Hives Uncoded 01/26/25 12:44 Review of Systems 2 Constitutional: Constitutional: Reports as per HPI and Reports no additional constitutional complaints Eyes: Eyes: Reports as per HPI and Reports no additional eye complaints ENT: Reports system reviewed and no additional complaints, except as documented and Reports as per HPI Comments: no epistaxis. Abrasion on his nose bridge. Cardiovascular: Cardiovascular: Reports as per HPI and Reports no additional cardiovascular complaints Respiratory: Respiratory: Reports as per HPI and Reports no additional respiratory complaints Gastrointestinal: Gastrointestinal: Reports as per HPI and Reports no additional gastrointestinal complaints Genitourinary: Comments: Chronic Avendaño catheter with Cloudy urine. Musculoskeletal: Musculoskeletal: Reports no additional musculoskeletal complaints and Reports as per HPI Comments: chronic left shoulder pain bilateral knee pain Integumentary/Breasts: Skin/Breast: Reports system reviewed and no additional complaints, except as docu Comments: superficial laceration over the left cheek caused by shaving. Abrasion over his nose bridge. Neurologic: Reports system reviewed and no additional complaints, except as documented Comments: Left-sided weakness Psychiatric: Psychiatric: Reports no additional psychiatric complaints and Reports as per HPI Endocrine: Endocrine: Reports no additional endocrine complaints and Reports as per HPI Hematologic/Lymphatic: Hematologic/Lymphatic: Reports no additional hematologic/lymphatic complaints and Reports as per HPI Allergic/Immunologic: Allergic/Immunologic: Reports no additional allergic/immunologic complaints and Reports as per HPI [facility] Past Medical History Medical History Diabetes mellitus HLD (hyperlipidemia) HTN (hypertension) CVA (cerebral vascular accident) Family History Family History Other Unknown family medical history Social History Social History Years smoked: 50 Smoking status: Current every day smoker Tobacco type: cigarettes Alcohol intake: former Substance use: never Substance use type: does not use Do You Feel Safe in your Home?: Yes Lack of Transportation: No Lack of Food: Sometimes True Current Housing: I Have Housing Concerned About Future Housing: No Difficulty Paying Gas/Electric Bills: No Difficulty Paying for Meds: No Currently Unemployed: No Education: High School Diploma/GED Difficulty w/ Childcare or Family Care: No Spiritual care concerns: No Exam 2 Narrative: vitals are stable Const: General: no acute distress Nutritional Appearance: well nourished Orientation/consciousness: patient oriented x3 Limitations: no limitations HENMT: Head images: 1. 2 cm abrasion over the nose bridge 2. 1 cm laceration over the left cheek caused by shaving Ears: external ears normal, TM's normal bilaterally and EAC's normal F beny/Nose/Sinus: Normal external nose present and Normal nares present Face and sinus: normal facial exam Mouth: Yes Normal oral and palatal mucosa present Eyes: Conjunctivae: conjunctivae normal Pupils: Equal, round and reactive pupils present EOM: EOMs intact bilaterally Direct Ophthalmoscopy: no photophobia Neck: Neck: normal visual inspection, no lymphadenopathy and no meningeal signs Chest: Chest palpation & inspection: normal inspection of the chest Resp: Effort & Inspection: normal respiratory effort Auscultation: clear to auscultation bilaterally Cardio: Rate: regular rate Rhythm: regular rhythm GI: Auscultation: normal bowel sounds Other: no tenderness/rigidity /rebound. : General: Yes no CVA tenderness Other: Avendaño's catheter. cloudy urine Back/Spine/Pelvis: Back: no CVA tenderness Skin: Other: decubitus ulceration over the sacrum and bilateral buttocks. Abrasion over the nose bridge Neuro: General: patient oriented x3 Speech: normal speech Other: left hemiplegia Extrem: General: normal to inspection Other: left upper and lower extremity contractures. No knee tenderness. Able to move his knees without eliciting pain Psych: Mental Status: mental status grossly normal Affect: normal affect Attitude: cooperative Course Course Emergency Course: accidental fall-- Chest x-ray and x-ray of the pelvis did not show any acute findings. facial trauma with abrasion over the nose bridge-- CT of the head, C-spine and face did not show any acute fracture/dislocation. Patient is noted to have severe spondylosis and degenerative arthritis. Decubitus over the sacrum and buttock-- chronic Avendaño's catheter was changed and a new size 18 was placed. Vital Signs Vital signs: Vital Signs Temperature 36.6 C 07/23/25 22:02 Pulse Rate 92 02/16/25 22:02 Respiratory Rate 18 02/16/25 22:02 Blood Pressure 133/78 02/16/25 22:02 Pulse Oximetry 92 02/16/25 22:02 Oxygen Delivery Room Air 02/16/25 22:02 Temperature 36.6 C 02/16/25 22:02 Pulse Rate 92 02/16/25 22:02 Respiratory Rate 18 02/16/25 22:02 Blood Pressure 133/78 02/16/25 22:02 Pulse Oximetry 92 02/16/25 22:02 Oxygen Delivery Room Air 02/16/25 22:02 MDM - Fall MDM Narrative Medical decision making narrative: Accidental fall facial trauma nose bridge abrasion Differential Diagnosis Differential diagnosis: Likely concussion with loss of consciousness Medical Records Attestation: I reviewed the patient's medical records. Discharge Plan Discharge Clinical Impression: Accidental fall Qualifiers: Encounter type: initial encounter Qualified Code(s): W19.XXXA - Unspecified fall, initial encounter Facial trauma Qualifiers: Encounter type: initial encounter Qualified Code(s): S09.93XA - Unspecified injury of face, initial encounter Patient Disposition: NH Intermediate/Asst Living Condition: Stable Instructions: Antibiotic Form, Fall Prevention for Older Adults (ED), Head Injury (ED) Patient Language: Togolese Prescriptions: No Action acetaminophen 325 mg capsule 650 mg PO Q4-6H PRN (Reason: pain) amlodipine 10 mg tablet 10 mg PO DAILY aspirin [Carli Chewable Aspirin] 81 mg tablet,chewable 81 mg PO DAILY atorvastatin [Lipitor] 40 mg tablet 40 mg PO HS insulin glargine [Lantus Solostar U-100 Insulin] 100 unit/mL (3 mL) insulin pen 10 unit subcut DAILY clopidogrel 75 mg tablet 75 mg PO DAILY lisinopril 20 mg tablet 20 mg PO BID DAILY VITAMIN FORMULA-MINERALS Tablet 1 tablet PO DAILY nicotine 14 mg/24 hr patch 24 hour 1 patch transdermal DAILY sennosides-docusate sodium 8.6-50 mg tablet 1 tab-cap PO BID PRN (Reason: constipation) sulfamethoxazole-trimethoprim 800-160 mg Tablet 1 tab PO Q12HR Qty: 11 0RF carvedilol [Coreg] 3.125 mg Tablet 3.125 mg PO Q12HR Qty: 60 0RF hydrocodone-acetaminophen 5-325 mg tablet 1 tablet PO Q8H PRN (Reason: pain) Qty: 90 0RF pregabalin [Lyrica] 150 mg capsule 150 mg PO BID Qty: 60 2RF Follow-up/Referrals: UNKNOWN,DOCTOR [Non-Staff] - Time of Disposition: 23:16
--- OUTSIDE RECORDS SUMMARY | 2025-02-16 22:30 | XMS_ITS | Continuity of Care Document ---
Author Name [facility] Organization [facility] Care Team Providers Care Tugboat Pilot Name Role Phone [facility] Unavailable Unavailable Problems Combined list of problems from Department of Defense and Veterans Affairs facilities. It does not include entries that were removed or entered in error. 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) Active Condition [facility] Obesity (SNOMED CT 415555325) Active Condition [facility] Refractive error Active Condition [facility] Tear film insufficiency Active Condition [facility] Tobacco use (SNOMED CT 731069884) Active Condition Apr 07, 2020 Entered By: ASHLEIGH DANG Comment: 30+ pack year smoker, switched to vaping January 2020 [facility] Hyperglycemia * (ICD-9-CM 790.29) Inactive Condition 12/08/2015 [facility] Mechanical low back pain Inactive Condition 12/08/2015 [facility] Other and unspecified hyperlipidemia (ICD-9-CM 272.4) Inactive Condition 12/08/2015 [facility] Diagnosis: ICD-10-CM R68.89 Other general symptoms and [...] to drug (finding) Indigestion active 2 N[place]/ [facility] TIDE LAUNDRY DETERGENT Propensity to adverse reaction (finding) Urticaria active 2 N[facility] [place] Immunizations Combined list of available immunizations from the Department of Defense and [facility] facilities. Immunization Series Date Given Administered By Site Reaction Lot Number CVX Code Drug 3D Technologist Status Comments Source PNEUMOCOCCAL POLYSACCHARID E PPV23 2014 33 complet [facility] PNEUMOCOCCAL, UNSPECIFIED FORMULATION 2014 109 complet [facility] FLU,3 YRS (HISTORICAL) 2013 88 complet [facility] TD(ADULT) UNSPECIFIED FORMULATION 2011 139 complet [facility] Encounters Combined list of: 1) Encounters from Department of Veterans Affairs facilities going backup to the last 18 months, not all [place] inpatient encounters are included; 2) Encounters from the Department of [facility] facilities going backup to 280 months. Location Location Details Encounter Type Encounter Number Reason For Visit Attending Provider ADM Date DC Date Status Disposition Source N. [facility] Outpatient Encounter [id number] 08/17 [facility] N[facility] Outpatient Encounter [id number] 08/27 [facility] Encounter [id number] 10/01 [facility] N[facility] Outpatient Encounter [id number] Dimple ONEILL 10/04 [facility] N. [facility] Outpatient Encounter [id number] 10/04 [facility] Outpatient Encounter [id number] 12/29 [facility] PH1 ASSMT&MGMT NQHP 5-10 [id number] Diagnos is: ICD-10- CM R68.89 Other general symptom s and signs SHORT,ISABELLA CATINA A 01/03 [facility] Outpatient Encounter [id number] 01/05 [facility] Outpatient Encounter [id number] 01/06 [facility] Outpatient Encounter [id number] DUNCAN,T ODD 01/06 [facility] Outpatient Encounter [id number] LYNDSEY ARANGO M 01/18 [facility] Outpatient Encounter [id number] LYNDSEY ARANGO M 01/19 [facility] Social History Combined list of available smoking, tobacco, and other social history from Department of Defense and [facility] Affairs facilities. Social History Type Response Date Comment Sourc e Tobacco smoking status [facility] TOBACCO USE CURRENT NRT ACCEPT 08/11/2021 N. 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
[2025-02-17] VITALS: BP 169/95; PULSE 91; RESP 18; TEMP 36.7; O2SAT 96
== END 2025-02-17 ==
PROVIDERS: Emergency Provider Internal Medicine Critical Care Medicine; PCP Family Medicine
DX: S00.31XA Abrasion of nose, initial encounter (principal); W06.XXXA Fall from bed, initial encounter; I10 Essential (primary) hypertension; E11.40 Type 2 diabetes mellitus with diabetic neuropathy, unspecified; E78.5 Hyperlipidemia, unspecified; I69.354 Hemiplegia and hemiparesis following cerebral infarction affecting left non-dominant side; N31.9 Neuromuscular dysfunction of bladder, unspecified; L89.159 Pressure ulcer of sacral region, unspecified stage; F17.210 Nicotine dependence, cigarettes, uncomplicated
CPT/HCPCS: 70450; 70486; 71045; 72125; 72192; 99284

== ENCOUNTER 2025-03-10 08:46 | Outpatient (CLI) | payer MEDICARE, SELFPAY ==
--- OUTSIDE RECORDS SUMMARY | 2025-03-10 08:56 | XMS_ITS | Continuity of Care Document ---
Author Name [facility] Organization [facility] Care Team Providers Care Housing Manager Name Role Phone [facility] Unavailable Unavailable Problems Combined list of problems from Department of Defense and Veterans Affairs facilities. It does not include entries that were removed or entered in error. 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 [facility] Obesity (SNOMED CT 443330534) Active Condition [facility] Refractive error Active Condition [facility] Tear film insufficiency Active Condition [facility] Tobacco use (SNOMED CT 655709795) Active Condition Apr 07, 2020 Entered By: ASHLEIGH DANG Comment: 30+ pack year smoker, switched to vaping January 2020 [facility] Hyperglycemia * (ICD-9-CM 790.29) Inactive Condition 12/08/2015 [facility] Mechanical low back pain Inactive Condition 12/08/2015 [facility] Other and unspecified hyperlipidemia (ICD-9-CM 272.4) Inactive Condition 12/08/2015 [facility] Diagnosis: ICD-10-CM R68.89 Other general symptoms and [...] to drug (finding) Indigestion active 2 N[place] Propensity to adverse reaction (finding) Urticaria active 2 N[facility] [place] Immunizations Combined list of available immunizations from the Department of Defense and [facility] facilities. 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 facilities going backup to 280 months. Location Location Details Encounter Type Encounter Number Reason For Visit Attending Provider ADM Date DC Date Status Disposition Source N. [facility] Outpatient Encounter [id number] 08/17 [facility] N. [facility] Outpatient Encounter [id number] 08/27 [facility] [id number] 10/01 [facility] N. [facility] Outpatient Encounter [id number] Dimple ONEILL 10/04 N[facility] N. [facility] Outpatient Encounter [id number] 10/04 [facility] Out[facility] Encounter [id number] 12/29 [facility] PH1 ASSMT&MGMT NQHP 5-10 [id number] Diagnos is: ICD-10- CM R68.89 Other general symptom s and signs SHORT,ISABELLA CATINA A 01/03 [facility] Outpatient Encounter [id number] 01/05 [facility] Outpatient Encounter [id number] 01/06 [facility] Outpatient Encounter [id number] DUNCAN,T ODD 01/06 [facility] Outpatient Encounter [id number] LYNDSEY ARANGO M 01/18 [facility] Outpatient Encounter [id number] LYNDSEY ARANGO M 01/19 [facility] N Social History Combined list of available smoking, tobacco, and other social history from Department of Defense and [facility] Affairs facilities. Social History Type Response Date Comment Sourc e Tobacco smoking status [facility] TOBACCO USE CURRENT NRT ACCEPT 08/11/2021 [place]. 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
[2025-03-10 09:44] LABS: Hemoglobin A1C 7.9 % (<5.7)
== END 2025-03-10 08:47 | disposition home or self-care (01) ==
PROVIDERS: PCP Family Medicine; Visit Provider Family Medicine
DX: E11.9 Type 2 diabetes mellitus without complications (principal)
CPT/HCPCS: 36415; 83036

== ENCOUNTER 2025-06-24 04:56 | Emergency (ER) | payer MEDICARE, MEDICAID, SELFPAY ==
--- NOTE | ~2025-06-24 | CT_ITS ---
CT abdomen pelvis w con Clinical History: gross hematuria . Comparison: None Technique: Axial images lung bases to symphysis pubis 100 mL Omnipaque 350 Coronal, sagittal reformats CT images acquired with automatic exposure control for dose reduction DLP: 1131 mGy-cm Findings: Lung bases: Atelectasis and/or scarring. Visualized heart and pericardium: Unremarkable. Liver: Unremarkable. Gallbladder: Stones. Spleen: Unremarkable. Pancreas: Unremarkable. Adrenal glands: Unremarkable. Kidneys: Right kidney- No hydronephrosis. No renal stones. 2 mm stone distal ureter Left kidney- Hydronephrosis. Collecting system and ureteral urothelial enhancement. 3 mm intrarenal stone. A few tiny cysts. Subtle heterogeneous enhancement. Slightly hyperdense ureteral material distally Distal esophagus/stomach: Unremarkable. Small bowel loops: Normal caliber and wall thickness. Colon: Diverticula. Normal caliber and wall thickness. Normal RLQ appendix. Nodes: No enlarged nodes. Peritoneum: No ascites. No free air. Urinary bladder: Avendaño catheter. Diffuse wall thickening. High density material left side dependently. Prostate: Unremarkable. Bones: No acute bony abnormality. Soft tissues: Small inguinal hernias with fat. Aorta: No aneurysm or dissection. Atherosclerotic disease. IVC: Unremarkable. Main portal vein/SMV/splenic vein: Patent. IMPRESSION: 1. Bladder wall thickening favoring cystitis but malignancy not excluded. Focal contrast accumulation versus stones left side of bladder. 2. Ascending bilateral pyelitis. And hemorrhage within left ureter. 3. Probable pyelonephritis left kidney. 4. Small stone distal right ureter but no hydronephrosis. 5. Small stone left kidney. Reviewed, dictated and finalized at location R. EAR EQUIPMENT OPERATOR IMPRESSION: 1. Bladder wall thickening favoring cystitis but malignancy not excluded. Foca l contrast accumulation versus stones left side of bladder. 2. Ascending bilateral pyelitis. And hemorrhage within left ureter. 3. Probable pyelonephritis left kidney. 4. Small stone distal right ureter but no hydronephrosis. 5. Small stone left kidney.
[2025-06-24 04:56] VITALS: BP 125/60; PULSE 76; RESP 18; TEMP 36.8; O2SAT 96
--- NOTE | 2025-06-24 05:00 | PC.NURSE ---
Patient azul cath changed, 18fr azul cath replaced, 5ml normal saline used to inflate balloon. Patient tolerated well.
--- NOTE | 2025-06-24 05:01 | ED_ITS ---
HPI - General Adult General Chief complaint: Urogenital-Male <Emmanuel Graff DO - Last Filed: 06/24/25 05:25> Stated complaint: BLOOD IN ARCHULETA BAG <Emmanuel Graff DO - Last Filed: 06/24/25 05:25> Time Seen by Provider: 06/24/25 05:00 <Emmanuel Graff DO - Last Filed: 06/24/25 05:25> History of Present Illness HPI narrative: José is a 69M with a PMH of HTN, HLD, DMII, and CVA with left sided flaccid paralysis that was brought to the ED via EMS for blood in his catheter. He reports that it has been pulled out with the marcio lift multiple times. No flank pain, fevers or chills reported. <Emmanuel Graff DO - Last Filed: 06/24/25 05:25> Related Data Home medications: Home Medications ?Medication ?Instructions ?Recorded ?Confirmed ?Last Taken ?Type acetaminophen 325 mg capsule 650 mg PO Q4-6H PRN pain 12/02/24 01/26/25 Unknown History amlodipine 10 mg tablet 10 mg PO DAILY 12/02/2409/21 Unknown History aspirin 81 mg chewable tablet 81 mg PO DAILY 12/02/24 01/26/25 Unknown History (Carli Chewable Low Dose Aspirin) atorvastatin 40 mg tablet (Lipitor) 40 mg PO HS 01/26/25 Unknown History clopidogrel 75 mg tablet 75 mg PO DAILY 12/02/2409/21 Unknown History insulin glargine 100 unit/mL (3 10 unit subcut DAILY 0 12/02/24 01/26/25 Unknown History mL) subcutaneous pen (Lantus Solostar U-100 Insulin) lisinopril 20 mg tablet 20 mg PO BID 12/02/24 Unknown History multivitamin with minerals (DAILY 1 tablet PO DAILY 01/26/25 Unknown History VITAMIN FORMULA-MINERALS tablet) nicotine 14 mg/24 hr daily 1 patch transdermal DAILY 0 12/02/24 01/26/25 Unknown History transdermal patch sennosides 8.6 mg-docusate sodium 1 tab-cap PO BID PRN constipation 12/02/24 01/26/25 Unknown History 50 mg tablet <Emmanuel Graff DO - Last Filed: 06/24/25 05:25> Allergies/adverse reactions: Allergies Allergy/AdvReac Type Severity Reaction Status Date / Time TIDE POWDER Allergy Intermediate Hives Uncoded 06/24/25 06:46 <DO Adonay Lang Last Filed: 06/24/25 05:25> Review of Systems 2 Review of Systems: All systems reviewed & are unremarkable except as noted in HPI and below <Emmanuel Graff DO - Last Filed: 06/24/25 05:25> [facility]LY [facility] Past Medical History Medical History: Medical History Diabetes mellitus HLD (hyperlipidemia) HTN (hypertension) CVA (cerebral vascular accident) <DO Adonay Lang Last Filed: 06/24/25 05:25> Family History Family History: Family History Other Unknown family medical history <Emmanuel Graff DO - Last Filed: 06/24/25 05:25> Social History Social History: Social History Years smoked: 50 Smoking status: Current every day smoker Tobacco type: cigarettes Alcohol intake: former Substance use: never Substance use type: does not use Lack of Transportation: No Lack of Food: Sometimes True Current Housing: I Have Housing Concerned About Future Housing: No Difficulty Paying Gas/Electric Bills: No Difficulty Paying for Meds: No Currently Unemployed: No Education: High School Diploma/GED Difficulty w/ Childcare or Family Care: No Spiritual care concerns: No <DO Adonay Lang Last Filed: 06/24/25 05:25> Exam 2 Const: General: no acute distress <DO Adonay Lang Last Filed: 06/24/25 05:25> Nutritional Appearance: well nourished <DO Adonay Lang Last Filed: 06/24/25 05:25> Orientation/consciousness: patient oriented x3 <Emmanuel Graff DO - Last Filed: 06/24/25 05:25> Limitations: no limitations <Emmanuel Graff, DO - Last Filed: 06/24/25 05:25> HENMT: Ears: external ears normal, TM's normal bilaterally and EAC's normal <Emmanuel Graff, DO - Last Filed: 06/24/25 05:25> Face/Nose/Sinus: Normal external nose present and Normal nares present <Emmanuel Graff, DO - Last Filed: 06/24/25 05:25> Face and sinus: normal facial exam <Emmanuel Graff, DO - Last Filed: 06/24/25 05:25> Mouth: Yes Normal oral and palatal mucosa present <Emmanuel Graff, DO - Last Filed: 06/24/25 05:25> Eyes: Conjunctivae: conjunctivae normal <Emmanuel Graff, - Last Filed: 06/24/25 05:25> Pupils: Equal, round and reactive pupils present <Emmanuel Graff DO - Last Filed: 06/24/25 05:25> EOM: EOMs intact bilaterally <Emmanuel Graff, DO - Last Filed: 06/24/25 05:25> Direct Ophthalmoscopy: no photophobia <Emmanuel Graff, - Last Filed: 06/24/25 05:25> Neck: Neck: normal visual inspection, no lymphadenopathy and no meningeal signs <Emmanuel Graff DO - Last Filed: 06/24/25 05:25> Chest: Chest palpation & inspection: normal inspection of the chest <Emmanuel Graff, DO - Last Filed: 06/24/25 05:25> Resp: Effort & Inspection: normal respiratory effort <Emmanuel Graff DO - Last Filed: 06/24/25 05:25> Auscultation: clear to auscultation bilaterally <Emmanuel Graff, DO - Last Filed: 06/24/25 05:25> Cardio: Rate: regular rate <Emmanuel Graff DO - Last Filed: 06/24/25 05:25> Rhythm: regular rhythm <Emmanuel Graff, DO - Last Filed: 06/24/25 05:25> GI: Auscultation: normal bowel sounds <Emmanuel Graff DO - Last Filed: 06/24/25 05:25> Other: no tenderness/rigidity /rebound. <Emmanuel Graff, DO - Last Filed: 06/24/25 05:25> : General: Yes no CVA tenderness <Emmanuel Graff, DO - Last Filed: 06/24/25 05:25> Other: urinary catheter bag was purple, gross blood around the urethral meatus <Emmanuel PEnedina Graff, DO - Last Filed: 06/24/25 05:25> Back/Spine/Pelvis: Back: no CVA tenderness <Emmanuel PEnedina Graff, DO - Last Filed: 06/24/25 05:25> Skin: Other: decubitus ulceration over the sacrum and bilateral buttocks. Abrasion over the nose bridge <Emmanuel Graff DO - Last Filed: 06/24/25 05:25> Neuro: General: patient oriented x3 <Emmanuel rGaff DO - Last Filed: 06/24/25 05:25> Speech: normal speech <Emmanuel Graff DO - Last Filed: 06/24/25 05:25> Other: left hemiplegia <Emmanuel Graff, DO - Last Filed: 06/24/25 05:25> Extrem: General: normal to inspection <Emmanuel Graff DO - Last Filed: 06/24/25 05:25> Psych: Mental Status: mental status grossly normal <Emmanuel Graff DO - Last Filed: 06/24/25 05:25> Affect: normal affect <Emmanuel Graff DO - Last Filed: 06/24/25 05:25> Attitude: cooperative <Emmanuel Graff DO - Last Filed: 06/24/25 05:25> Course Course Emergency Course: catheter replaced. Ordered UA and labs. Large clot passed when the catheter was changed. <Emmanuel Graff DO - Last Filed: 06/24/25 05:25> Vital Signs Vital signs: Vital Signs Temperature 36.8 C 06/24/25 04:56 Pulse Rate 76 06/24/25 04:56 Respiratory Rate 18 06/24/25 04:56 Blood Pressure 125/60 06/24/25 04:56 Pulse Oximetry 96 06/24/25 04:56 Oxygen Delivery Room Air 06/24/25 04:56 Temperature 36.8 C 06/24/25 04:56 Pulse Rate 76 06/24/25 04:56 Respiratory Rate 18 06/24/25 04:56 Blood Pressure 125/60 06/24/25 04:56 Pulse Oximetry 96 06/24/25 04:56 Oxygen Delivery Room Air 06/24/25 04:56 <Emmanuel Graff DO - Last Filed: 06/24/25 05:25> Vital Signs Temperature 36.8 C 06/24/25 04:56 Pulse Rate 76 06/24/25 04:56 Respiratory Rate 18 06/24/25 04:56 Blood Pressure 125/60 06/24/25 04:56 Pulse Oximetry 96 06/24/25 04:56 Oxygen Delivery Room Air 06/24/25 04:56 Temperature 36.8 C 06/24/25 04:56 Pulse Rate 76 06/24/25 04:56 Respiratory Rate 18 06/24/25 04:56 Blood Pressure 125/60 06/24/25 04:56 Pulse Oximetry 96 06/24/25 04:56 Oxygen Delivery Room Air 06/24/25 04:56 <Mega Moura MD - Last Filed: 06/24/25 08:34> Medical Decision Making MDM Narrative Medical decision making narrative: I took over care of this patient at shift change. CT scan was pending and shows left ureter hemorrhage with pyelonephritis on the left with bilateral pyelitis and some kidney stones and cystitis. Cannot rule out malignancy. I will blood cultures and start Zosyn. I will transfer the patient to [facility] for higher level medical care. Urology. No signs of sepsis at this time. <Mega Moura MD - Last Filed: 06/24/25 08:34> Vital Signs Vital Signs: Vital Signs Temperature 36.8 C 06/24/25 04:56 Pulse Rate 76 06/24/25 04:56 Respiratory Rate 18 06/24/25 04:56 Blood Pressure 125/60 06/24/25 04:56 Pulse Oximetry 96 06/24/25 04:56 Oxygen Delivery Room Air 06/24/25 04:56 Temperature 36.8 C 06/24/25 04:56 Pulse Rate 76 06/24/25 04:56 Respiratory Rate 18 06/24/25 04:56 Blood Pressure 125/60 06/24/25 04:56 Pulse Oximetry 96 06/24/25 04:56 Oxygen Delivery Room Air 06/24/25 04:56 <Emmanuel Graff DO - Last Filed: 06/24/25 05:25> Vital Signs Temperature 36.8 C 06/24/25 04:56 Pulse Rate 76 06/24/25 04:56 Respiratory Rate 18 06/24/25 04:56 Blood Pressure 125/60 06/24/25 04:56 Pulse Oximetry 96 06/24/25 04:56 Oxygen Delivery Room Air 06/24/25 04:56 Temperature 36.8 C 06/24/25 04:56 Pulse Rate 76 06/24/25 04:56 Respiratory Rate 18 06/24/25 04:56 Blood Pressure 125/60 06/24/25 04:56 Pulse Oximetry 96 06/24/25 04:56 Oxygen Delivery Room Air 06/24/25 04:56 <Mega Moura MD - Last Filed: 06/24/25 08:34> Lab Data Lab results reviewed: Yes I reviewed the patient's lab results. <Mega Moura MD - Last Filed: 06/24/25 08:34> Result diagrams: 06/24/25 05:40 06/24/25 05:40 <Emmanuel Graff DO - Last Filed: 06/24/25 05:25> Labs: Lab Results 06/24/25 06/24/25 Range/Units 05:30 05:40 WBC 14.8 H (4.8-10.8) K/mm3 RBC 4.14 L (4.70-6.10) M/mm3 Hgb 11.2 L (12.4-15.3) g/dL Hct 34.7 L (37.0-46.0) % MCV 83.8 (78.0-102.0) fL MCH 27.1 (27.0-31.0) pg MCHC 32.3 (32-36) g/dL RDW 13.7 (11.6-14.4) % Plt Count 331 (150-420) K/mm3 MPV 9.1 (8.7-11.0) fl Immature Gran % (Auto) 0.3 H (0.0-0.0) % Neut % (Auto) 75.5 H (50.0-70.0) % Lymph % (Auto) 14.7 L (18.0-42.0) % Anson % (Auto) 5.3 (2.0-11.0) % Eos % (Auto) 3.9 (1.0-6.0) % Baso % (Auto) 0.3 (0.0-1.0) % Lymph # (Auto) 2.18 (1.10-4.50) K/mm3 Anson # (Auto) 0.79 (0.10-0.90) K/mm3 Eos # (Auto) 0.57 H (0.02-0.50) K/mm3 Baso # (Auto) 0.04 (0.00-0.10) K/mm3 Abs Immat Gran (auto) 0.05 H (0.00-0.00) K/mm3 Absolute Neuts (auto) 11.16 H (1.70-7.20) K/mm3 Absolute Nucleated RBC 0.00 (0.00-0.00) K/mm3 Nucleated RBC % 0.0 (0-0.0) % Sodium 140 (137-145) mmol/L Potassium 4.4 (3.4-5.0) mmol/L Chloride 103 (98-107) mmol/L Carbon Dioxide 30 (22-30) mmol/L Anion Gap 7 (4-12) mmol/L BUN 15 (9-20) mg/dL Creatinine 1.36 H (0.7-1.3) mg/dL Estim Creat Clear Calc Not Reportable Estimated GFR 52 L (59 - ) Glucose 168 H (65-110) mg/dL Calculated Osmolality 294 (285-295) mOsm/kg Calcium 9.4 (8.4-10.2) mg/dL Total Bilirubin 0.3 (0.2-1.3) mg/dL AST 23 (17-59) U/L ALT 14 (6-50) U/L Alkaline Phosphatase 112 (38-126) U/L Total Protein 6.9 (6.3-8.2) g/dL Albumin 3.5 (3.5-5.1) g/dL Urine Color Dark red (Yellow) Urine Appearance Clear (Clear) Urine pH 8.0 (5.0-8.0) Ur Specific Counce 1.010 (1.010-1.020) Urine Protein 3+ H (Negative) Urine Glucose (UA) Trace H (Negative) Urine Ketones 1+ H (Negative) Ur Blood (Man) 3+ H (Negative) Urine Nitrate Positive H (Negative) Urine Bilirubin 3+ H (Negative) Urine Urobilinogen >=8.0 (0.2-1.0) mg/dL Leukocyte Esterase Rfl 3+ H (Negative) JOAN/UL Urine RBC 11-20 H (0-2) /hpf Urine WBC >75 H (0-3) /hpf Ur Squamous Epith Cells None seen (Few) /hpf Urine Bacteria 4+ H (None) /hpf <Emmanuel Graff, DO - Last Filed: 06/24/25 05:25> Lab Results 06/24/25 06/24/25 Range/Units 05:30 05:40 WBC 14.8 H (4.8-10.8) K/mm3 RBC 4.14 L (4.70-6.10) M/mm3 Hgb 11.2 L (12.4-15.3) g/dL Hct 34.7 L (37.0-46.0) % MCV 83.8 (78.0-102.0) fL MCH 27.1 (27.0-31.0) pg MCHC 32.3 (32-36) g/dL RDW 13.7 (11.6-14.4) % Plt Count 331 (150-420) K/mm3 MPV 9.1 (8.7-11.0) fl Immature Gran % (Auto) 0.3 H (0.0-0.0) % Neut % (Auto) 75.5 H (50.0-70.0) % Lymph % (Auto) 14.7 L (18.0-42.0) % Anson % (Auto) 5.3 (2.0-11.0) % Eos % (Auto) 3.9 (1.0-6.0) % Baso % (Auto) 0.3 (0.0-1.0) % Lymph # (Auto) 2.18 (1.10-4.50) K/mm3 Anson # (Auto) 0.79 (0.10-0.90) K/mm3 Eos # (Auto) 0.57 H (0.02-0.50) K/mm3 Baso # (Auto) 0.04 (0.00-0.10) K/mm3 Abs Immat Gran (auto) 0.05 H (0.00-0.00) K/mm3 Absolute Neuts (auto) 11.16 H (1.70-7.20) K/mm3 Absolute Nucleated RBC 0.00 (0.00-0.00) K/mm3 Nucleated RBC % 0.0 (0-0.0) % Sodium 140 (137-145) mmol/L Potassium 4.4 (3.4-5.0) mmol/L Chloride 103 (98-107) mmol/L Carbon Dioxide 30 (22-30) mmol/L Anion Gap 7 (4-12) mmol/L BUN 15 (9-20) mg/dL Creatinine 1.36 H (0.7-1.3) mg/dL Estim Creat Clear Calc Not Reportable Estimated GFR 52 L (59 - ) Glucose 168 H (65-110) mg/dL Calculated Osmolality 294 (285-295) mOsm/kg Calcium 9.4 (8.4-10.2) mg/dL Total Bilirubin 0.3 (0.2-1.3) mg/dL AST 23 (17-59) U/L ALT 14 (6-50) U/L Alkaline Phosphatase 112 (38-126) U/L Total Protein 6.9 (6.3-8.2) g/dL Albumin 3.5 (3.5-5.1) g/dL Urine Color Dark red (Yellow) Urine Appearance Clear (Clear) Urine pH 8.0 (5.0-8.0) Ur Specific Counce 1.010 (1.010-1.020) Urine Protein 3+ H (Negative) Urine Glucose (UA) Trace H (Negative) Urine Ketones 1+ H (Negative) Ur Blood (Man) 3+ H (Negative) Urine Nitrate Positive H (Negative) Urine Bilirubin 3+ H (Negative) Urine Urobilinogen >=8.0 (0.2-1.0) mg/dL Leukocyte Esterase Rfl 3+ H (Negative) JOAN/UL Urine RBC 11-20 H (0-2) /hpf Urine WBC >75 H (0-3) /hpf Ur Squamous Epith Cells None seen (Few) /hpf Urine Bacteria 4+ H (None) /hpf <Mega Moura MD - Last Filed: 06/24/25 08:34> Imaging Data Attestation: I personally reviewed and interpreted this imaging study as follows: <Mega Moura MD - Last Filed: 06/24/25 08:34> Radiologist's impression: CT scan of the abdomen and pelvis with IV contrast shows IMPRESSION: 1. Bladder wall thickening favoring cystitis but malignancy not excluded. Focal contrast accumulation versus stones left side of bladder. 2. Ascending bilateral pyelitis. And hemorrhage within left ureter. 3. Probable pyelonephritis left kidney. 4. Small stone distal right ureter but no hydronephrosis. 5. Small stone left kidney. <Mega Moura MD - Last Filed: 06/24/25 08:34> Discharge Plan Discharge Clinical Impression: Acute pyelonephritis, Acute pyelitis, Hemorrhage of ureter, Urinary tract infection due to indwelling Archuleta catheter, Calculus, kidney <Emmanuel Graff DO - Last Filed: 06/24/25 05:25> Patient Disposition: [facility] <Emmanuel Graff DO - Last Filed: 06/24/25 05:25> Condition: Stable <Emmanuel Graff DO - Last Filed: 06/24/25 05:25> Patient Language: Danish <DO Adonay Lang Last Filed: 06/24/25 05:25> Prescriptions: No Action acetaminophen 325 mg capsule 650 mg PO Q4-6H PRN (Reason: pain) amlodipine 10 mg tablet 10 mg PO DAILY aspirin [Carli Chewable Aspirin] 81 mg tablet,chewable 81 mg PO DAILY atorvastatin [Lipitor] 40 mg tablet 40 mg PO HS insulin glargine [Lantus Solostar U-100 Insulin] 100 unit/mL (3 mL) insulin pen 10 unit subcut DAILY clopidogrel 75 mg tablet 75 mg PO DAILY lisinopril 20 mg tablet 20 mg PO BID DAILY VITAMIN FORMULA-MINERALS Tablet 1 tablet PO DAILY nicotine 14 mg/24 hr patch 24 hour 1 patch transdermal DAILY sennosides-docusate sodium 8.6-50 mg tablet 1 tab-cap PO BID PRN (Reason: constipation) sulfamethoxazole-trimethoprim 800-160 mg Tablet 1 tab PO Q12HR Qty: 11 0RF carvedilol [Coreg] 3.125 mg Tablet 3.125 mg PO Q12HR Qty: 60 0RF Trulicity 0.75 mg/0.5 mL pen injector 0.75 mg subcut WEEKLY Qty: 2 0RF hydrocodone-acetaminophen 5-325 mg tablet 1 tablet PO Q8H PRN (Reason: pain) Qty: 90 0RF pregabalin [Lyrica] 150 mg capsule 150 mg PO BID Qty: 60 2RF <Emmanuel Graff DO - Last Filed: 06/24/25 05:25> Follow-up/Referrals: Emmanuel Graff DO [Primary Care Provider, [facility]] <Emmanuel Graff DO - Last Filed: 06/24/25 05:25> Time of Disposition: 08:34 <Emmanuel Graff DO - Last Filed: 06/24/25 05:25> 08:34 <Mega Moura MD - Last Filed: 06/24/25 08:34>
[2025-06-24 05:44] LABS: Hematocrit 34.7 % (37.0-46.0); Hemoglobin 11.2 g/dL (12.4-15.3); Immature Granulocyte Percent A 0.3 % (0.0-0.0); Lymphocytes Absolute Auto 2.18 K/mm3 (1.10-4.50); Mean Corpuscular HGB Conc 32.3 g/dL (32-36); Mean Corpuscular Hemoglobin 27.1 pg (27.0-31.0); Mean Corpuscular Volume 83.8 fL (78.0-102.0); Nucleated Red Blood Cells Absolute Auto 0.00 K/mm3 (0.00-0.00); Nucleated Red Blood Cells Perc 0.0 % (0-0.0); Platelet Count Result 331 K/mm3 (150-420); Red Blood Count 4.14 M/mm3 (4.70-6.10); White Blood Count 14.8 K/mm3 (4.8-10.8)
[2025-06-24 05:53] LABS: Appearance Urine Clear (Clear); Glucose Urine UA Trace (Negative); Leukocyte Esterase Ur 3+ LEU/UL (Negative); Nitrate Urine Positive (Negative); Specific Grav Ur 1.010 (1.010-1.020)
[2025-06-24 06:02] LABS: Add Urine Microscopic? YES
[2025-06-24 06:07] LABS: Alanine Aminotransferase 14 U/L (6-50); Albumin Level 3.5 g/dL (3.5-5.1); Alkaline Phosphatase 112 U/L (38-126); Anion Gap 7 mmol/L (4-12); Aspartate Amino Transferase 23 U/L (17-59); Bilirubin,Total 0.3 mg/dL (0.2-1.3); Blood Urea Nitrogen 15 mg/dL (9-20); Calcium 9.4 mg/dL (8.4-10.2); Carbon Dioxide 30 mmol/L (22-30); Chloride 103 mmol/L (98-107); Estimated Glomerular Filt Rate 52; Glucose 168 mg/dL (65-110); Osmolality Calculated 294 mOsm/kg (285-295); Potassium 4.4 mmol/L (3.4-5.0); Sodium 140 mmol/L (137-145); Total Protein 6.9 g/dL (6.3-8.2)
[2025-06-24 07:00] VITALS: BP 116/60; PULSE 77; RESP 16; O2SAT 98
--- NOTE | 2025-06-24 07:26 | PC.NURSE ---
Per RN at [facility] and rehab, Patient was being seen by [facility] in [place], However they were going to refer him to a higher level of care.
[2025-06-24 07:30] VITALS: BP 109/57; PULSE 79; RESP 18; O2SAT 98
--- NOTE | 2025-06-24 07:33 | PC.NURSE ---
Lab notified of blood cultures, will start abx when they are obtained.
[2025-06-24 08:00] VITALS: BP 115/58; PULSE 77; RESP 18; O2SAT 98
[2025-06-24] MEDS: PIPERACILLIN/TAZOBACTAM SOD 3.375 GM in SODIUM CHLORIDE 0.9% IV 50 ML 100 ML IVPB (08:15)
[2025-06-24 08:30] VITALS: BP 120/54; PULSE 78; RESP 17; O2SAT 97
[2025-06-24 09:05] VITALS: BP 118/60; PULSE 89; RESP 17; TEMP 36.9; O2SAT 98
--- NOTE | 2025-06-26 12:20 | PC.NURSE ---
urine preliminary, growth noted. awaiting further testing to rule out pathogen is in progress
--- NOTE | 2025-06-27 13:20 | PC.NURSE ---
PRELIMINARY BLOOD CULTURE REPORT; NO GROWTH IN 24 HOURS. PRELIMINARY URINE CULTURE REPORT; GROWTH OBSERVED, WAITING ON FINAL RESULTS.
--- NOTE | 2025-06-28 14:49 | PC.NURSE ---
PRELIMINARY BLOOD CULTURE REPORT; NO GROWTH IN 48 HOURS.
--- NOTE | 2025-06-29 12:24 | PC.NURSE ---
pt transferred to [facility] and has since been discharged home. the final urine culture is positive for multiple organisms. attempted to call pt...voice mail left. pt PMD is dr riley. dr riley news assistant called and voice mail left on her phone re: urine culture report.
--- NOTE | 2025-07-01 13:41 | PC.NURSE ---
FINAL BLOOD CULTURE AEROBIC AND ANAEROBIC NO GROWTH IN FIVE DAYS
== END 2025-06-24 09:15 | disposition short-term general hospital (02) ==
PROVIDERS: Emergency Provider Family Medicine; PCP Family Medicine
DX: T83.511A Infection and inflammatory reaction due to indwelling urethral catheter, initial encounter (principal); N10 Acute pyelonephritis; N20.0 Calculus of kidney; E78.5 Hyperlipidemia, unspecified; E11.9 Type 2 diabetes mellitus without complications; F17.210 Nicotine dependence, cigarettes, uncomplicated; Z86.73 Personal history of transient ischemic attack (TIA), and cerebral infarction without residual deficits
CPT/HCPCS: 36415; 74177; 80053; 81001; 85025; 87040; 87077; 87086; 87088; 87186; 96365; 99285; J2543; Q9967

== ENCOUNTER 2025-07-01 07:02 | Outpatient (NON) | payer MEDICARE, SELFPAY ==
[2025-07-01 07:39] LABS: Hematocrit 32.5 % (37.0-46.0); Hemoglobin 10.3 g/dL (12.4-15.3); Mean Corpuscular HGB Conc 31.7 g/dL (32-36); Mean Corpuscular Hemoglobin 27.2 pg (27.0-31.0); Mean Corpuscular Volume 85.8 fL (78.0-102.0); Platelet Count Result 309 K/mm3 (150-420); Red Blood Count 3.79 M/mm3 (4.70-6.10); White Blood Count 7.4 K/mm3 (4.8-10.8)
[2025-07-01 07:52] LABS: Alanine Aminotransferase 13 U/L (6-50); Albumin Level 3.4 g/dL (3.5-5.1); Alkaline Phosphatase 80 U/L (38-126); Anion Gap 5 mmol/L (4-12); Aspartate Amino Transferase 17 U/L (17-59); Bilirubin,Total 0.4 mg/dL (0.2-1.3); Blood Urea Nitrogen 20 mg/dL (9-20); Calcium 9.7 mg/dL (8.4-10.2); Carbon Dioxide 29 mmol/L (22-30); Chloride 108 mmol/L (98-107); Estimated Glomerular Filt Rate 44; Glucose 77 mg/dL (65-110); Osmolality Calculated 295 mOsm/kg (285-295); Potassium 4.3 mmol/L (3.4-5.0); Sodium 142 mmol/L (137-145); Total Protein 6.6 g/dL (6.3-8.2)
[2025-07-03 06:02] LABS: Add Urine Microscopic? YES; Appearance Urine Clear (Clear); Glucose Urine UA Negative (Negative); Leukocyte Esterase Ur 2+ (Negative); Nitrate Urine Negative (Negative); Specific Grav Ur 1.010 (1.010-1.020)
== END 2025-07-01 07:03 | disposition home or self-care (01) ==
LOC: CHSLAB 07:05
PROVIDERS: PCP Family Medicine; Visit Provider Family Medicine
DX: N39.0 Urinary tract infection, site not specified (principal); E11.9 Type 2 diabetes mellitus without complications
CPT/HCPCS: 36415; 80053; 81001; 85027; 87086

== ENCOUNTER 2025-07-03 10:33 | Outpatient (NON) | payer MEDICARE, SELFPAY ==
--- OUTSIDE RECORDS SUMMARY | 2025-01-19 05:40 | XMS_ITS | Continuity of Care Document ---
Author Name [facility] Organization [facility] Care Team Providers Care Warp Clamper Name Role Phone [facility] Unavailable Unavailable Problems Combined list of problems from Department of Defense and Veterans Affairs facilities. It does not include entries that were removed or entered in error. 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 [place] Hyperlipidemia Active Condition 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 Mechanical low back pain Inactive Condition 12/08/2015 [facility] Other and unspecified hyperlipidemia (ICD-9-CM 272.4) Inactive Condition 12/08/2015 [facility] Diagnosis: ICD-10-CM R68.89 Other general symptoms and signs Active Diagnosis [facility] Allergies, Adverse Reactions, Alerts Combined list of allergies from Department of Defense and Veterans Affairs facilities. It does not include entries that were removed or entered in error. Substance Category Reaction Severity Reaction type Status Date Reported Comments Source METFORMIN Propensity to adverse reactions to drug (finding) Indigestion active 2 [place] [facility] TIDE LAUNDRY DETERGENT Propensity to adverse reaction (finding) Urticaria active 2 [place] [facility] Immunizations Combined list of available immunizations from the Department of Defense and [facility] facilities. Immunization Series Date Given Administered By Site Reaction Lot Number CVX Code Drug Neon Tube Pumper Status Comments Source PNEUMOCOCCAL POLYSACCHARID E PPV23 2014 33 complet [facility] PNEUMOCOCCAL, UNSPECIFIED FORMULATION 2014 109 complet [facility] FLU,3 YRS (HISTORICAL) 2013 88 complet [facility] TD(ADULT) UNSPECIFIED FORMULATION 2011 139 complet [facility] Encounters Combined list of: 1) Encounters from Department of Veterans Affairs facilities going backup to the last 18 months, not all [place] inpatient encounters are included; 2) Encounters from the Department of [facility] facilities going backup to 280 months. Location Location Details Encounter Type Encounter Number Reason For Visit Attending Provider ADM Date DC Date Status Disposition Source N. [facility] Outpatient Encounter [id number] 08/17 [facility] Outpatient Encounter [id number] 08/27 [facility] Outpatient Encounter [id number] 10/01 [facility] N[facility] Outpatient Encounter [id number] Dimple ONEILL 10/04 N. [facility] N[facility] Outpatient Encounter [id number] 10/04 [facility] En[facility] [id number] 12/29 [facility] PH1 ASSMT&MGMT NQHP 5-10 [id number] Diagnos is: ICD-10- CM R68.89 Other general symptom s and signs SHORT,ISABELLA CATINA A 01/03 [facility] Outpatient Encounter [id number] 01/05 [facility] Outpatient Encounter [id number] 01/06 [facility] Outpatient Encounter [id number] DUNCAN,T ODD 01/06 [facility] Outpatient Encounter [id number] LYNDSEY ARANGO M 01/18 [facility] Outpatient Encounter [id number] LYNDSEY ARANGO M 01/19 [facility] Social History Combined list of available smoking, tobacco, and other social history from Department of Defense and [facility] Affairs facilities. Social History Type Response Date Comment Sourc e Tobacco smoking status [facility] TOBACCO USE CURRENT NRT ACCEPT 08/11/2021 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
[2025-07-03 06:02] LABS: Add Urine Microscopic? YES; Appearance Urine Clear (Clear); Glucose Urine UA Negative (Negative); Leukocyte Esterase Ur 2+ (Negative); Nitrate Urine Negative (Negative); Specific Grav Ur 1.010 (1.010-1.020)
--- OUTSIDE RECORDS SUMMARY | 2025-09-01 11:48 | XMS_ITS | Encounter Summary ---
Author Organization [facility] Address [address] [place] [address] Care Team Providers Care Patent Solicitor Name Role Phone Emmanuel Graff DO Primary Care Provider [phone] Encounter Details Date Type Department Care Team (Late st Contact Info) Description 08/30/2025 External Device Data [facility] ABSTRACTION Provider, Abstract NO ADDRESS ON FILE Social History Tobacco Use Types Packs/Day Years Used Date Smoking Tobacco: Never Assessed Feeling Safe Answer Date Recorded Are you in a relationship wi th someone who hurts you emotionally and/or physically? 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
--- OUTSIDE RECORDS SUMMARY | 2025-09-01 11:48 | XMS_ITS | Clinical Summary ---
Author Organization [facility] Address [address] [place] [address] Care Team Providers Care Leaf Binner Name Role Phone Emmanuel Graff DO Primary Care Provider [phone] Source Comments [facility],non-owned Affiliates and Associated Physician Practices is amultiple site organization consisting of ambulatory clinics and hospital sitesin [place], [place], [place] and [place]. This disclosure is being madepursuant to the Care Everywhere program and may not contain all information available regarding this patient. 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 Gender Identity Not on file Sexual Orientation Not on file Plan of Treatment Upcoming Encounters Date Type Department Care Team (Late st Contact Info) Description 2025 1:00 PM PROPERTY INSURANCE AGENT Office Visit [facility] - Urology [address] [place] [address] Emanuel Jackson MD [address] [place] [address] Health Maintenance Due Date Last Done Comments COLOGUARD (AGES 45-75) - COL ON CA SCREENING 1956 COLON MONITORING 1956 COLONOSCOPY - COLON CA SCREENING 1956 CT COLONOGRAPHY - COLON CA SCREENING 1956 Colorectal Cancer Screening 1956 FIT - COLON CA SCREENING 1956 FLEX SIG - COLON CA SCREENING 1956 LIPID TESTING 1956 MEDICARE AWV 12 MONTHS 1956 HEPATITIS C SCREENING 09/02/1974 DTAP/TDAP/TD VACCINES (1 - Tdap) 1975 PNEUMOCOCCAL VACCINE 50+ (1 of 1 - PCV) 2006 ZOSTER VACCINE (1 of 2) 2006 COVID-19 VACCINE (1 - 2024-2 6 season) 2025 INFLUENZA VACCINE (#1) 2025 DEPRESSION SCREENING 07/28/2025 Respiratory Syncytial Virus (RSV) Vaccine Pt: or over 60 yrs (1 - 1-dose 75+ series) 2031 HEPATITIS B VACCINE Aged Out No longe r eligible based on patient's age to complete this topic HIB VACCINE Aged Out No longer eligi ble based on patient's age to complete this topic HPV VACCINE Aged Out No longer eligi ble based on patient's age to complete this topic MENINGOCOCCAL (Group B) VACC INE SHARED DECISION-MAKING Aged Out No longer eligibl e based on patient's age to complete this topic MENINGOCOCCAL GROUPS A/C/Y/W VACCINE Aged Out No longer eligible b ased on patient's age to complete this topic ROTAVIRUS VACCINE Aged Out No longer eligible based on patient's age to complete this topic Insurance MEDICAID - [place] MEDICARE Care Teams Leaf Binner Relationship Specialty Start Date End Date Emmanuel Graff DO [address] [place] [id number] PCP - General Family Medicine 07/05/25
--- OUTSIDE RECORDS SUMMARY | 2025-09-01 11:48 | XMS_ITS | Clinical Summary ---
Author Organization [facility] Address [address] [place] [address] Care Team Providers Care Medical Information Officer Name Role Phone Emmanuel Graff DO Primary Care Provider [phone] Allergies No known active allergies Medications atorvastatin (LIPITOR) 40 mg tablet Take 40 mg by mouth daily. Active insulin glargine (LANTUS) 100 unit/mL pen syringe Inject 10 Units by subcutaneous injection daily at bedtime. Active carvediloL (COREG) 3.125 mg tablet Take 3.125 mg by mouth 2 times daily with meals. Active HYDROcodone-acet aminophen (NORCO) 5-325 mg tablet Take 1 Tablet by mouth every 8 hours as needed for Pain, Moderate. Active ZINC OXIDE TOPICAL Apply to affected area. Active pregabalin (LYRICA) 150 mg Capsule Take 150 mg by mouth every 12 hours. Active lisinopriL (PRINIVIL) 20 mg tablet Take 20 mg by mouth 2 times daily. Active aspirin (ECOTRIN EC) 81 mg Tablet, Delayed Release (E.C.) Take 81 mg by mouth daily. Active amLODIPine (NORVASC) 10 mg tablet Take 10 mg by mouth daily. Active clopidogreL (PLAVIX) 75 mg Tablet Take 75 mg by mouth daily. Active silver sulfADIAZINE (SILVADENE) 1 % Cream Apply to affected area daily. Active dulaglutide (Trulicity) 0.75 mg/0.5 mL injection Inject 0.75 mg by subcutaneous injection every 7 days. FRIDAY Active acetaminophen (TYLENOL) 325 mg tablet Take 650 mg by mouth every 4 hours as needed for Pain. Active sennosides (SENOKOT) 8.6 mg tablet Take 8.6 mg by mouth 2 times daily as needed for Constipation. 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 06/24/2025 Gross hematuria 06/24/2025 HTN (hypertension), benign 06/24/2025 Pressure ulcer of coccygeal region 06/24/2025 Encounters Date Type Department Care Team Description 08/30/2025 External Device Data [facility] ABSTRACTION Provider, Abstract 08/24/2025 External Device Data [facility] ABSTRACTION Provider, Abstract 08/23/2025 External Device Data [facility]STRACTION Provider, Abstract 08/17/2025 External Device Data [facility]STRACTION Provider, Abstract 08/02/2025 External Device Data [facility]STRACTION Provider, Abstract 07/26/2025 External Device Data [facility]STRACTION Provider, Abstract 07/26/2025 External Device Data [facility]STRACTION Provider, Abstract 07/26/2025 External Device Data [facility] ABSTRACTION Provider, Abstract 07/12/2025 External Device Data [facility] ABSTRACTION Provider, Abstract 07/12/2025 External Device Data [facility]STRACTION Provider, Abstract 07/12/2025 External Device Data [facility] ABSTRACTION Provider, Abstract 06/26/2025 10:30 AM CRYOLITE RECOVERY OPERATOR - 06/26/2025 11:59 PM CRYOLITE RECOVERY OPERATOR Hospital Encounter [facility] Emergency Medical Services [address] [phone] Oleg Lunsford MD [facility] Discharge Disposition: Rehab Facility 06/24/2025 10:25 AM CRYOLITE RECOVERY OPERATOR - 06/26/2025 5:38 PM CRYOLITE RECOVERY OPERATOR Hospital Encounter [address] [phone] Ryan Crawford MD Shetty, Nisha, MD Hoos, Cullen, MD Gross hematuria Discharge Disposition: Medicaid Nursing Facility from Last 3 Months Social History Tobacco Use Types Packs/Day Years Used Date Smoking Tobacco: Never Assessed Feeling Safe Answer Date Recorded Are you in a relationship wi th someone who hurts you emotionally and/or physically? No 06/24/2025 Sex and Gender Information Value Date Recorded Sex Assigned at Not on file Legal Sex Male 7:44 AM CRYOLITE RECOVERY OPERATOR Gender Identity Not on file Sexual Orientation Not on file Last Filed Vital Signs Vital Sign Reading Time Taken Comments Blood Pressure 138/62 06/26/2025 4:29 PM CRYOLITE RECOVERY OPERATOR Pulse 71 06/26/2025 1:15 PM CRYOLITE RECOVERY OPERATOR Temperature 36.6 C (97.9 F) 06/26/2025 1:15 PM CRYOLITE RECOVERY OPERATOR Respiratory Rate 18 06/26/2025 1:15 PM CRYOLITE RECOVERY OPERATOR Oxygen Saturation 99% 06/26/2025 1:15 PM CRYOLITE RECOVERY OPERATOR Inhaled Oxygen Concentration - - Weight 92.1 kg (203 lb 1.6 oz) 06/24/2025 10:57 AM CRYOLITE RECOVERY OPERATOR Height 182.9 cm (6') 06/24/2025 10:57 AM CRYOLITE RECOVERY OPERATOR Body Mass Index 27.55 06/24/2025 10:57 AM CRYOLITE RECOVERY OPERATOR Plan of Treatment Health Maintenance Due Date Last Done Comments DIABETES ANNUAL FOOT EXAM 1974 DIABETES ANNUAL RETINAL EXAM 1974 DIABETES HBA1C Q 6 MONTHS 1974 DIABETES MICROALBUMIN ANNUAL SCREEN 1974 LDL CHOLESTEROL ANNUAL 1974 COLORECTAL SCREENING 2001 Colorectal Cancer Screening 2001 FIT-DNA Q 3 years 2001 FIT/FOBT Q 1 year 2001 Flex Sig/CT Colonography Q 5 years 2001 RSV VACCINE (60+ or ) (1 - Risk 50-74 years 1-dose series) 2006 ZOSTER VACCINE (1 of 2) 2006 DTAP/TDAP/TD VACCINES (1 - Tdap) 09/26/2011 09/25/19 12 PNEUMOCOCCAL VACCINE 50+ YEA RS (2 of 2 - PCV) 10/12/2015 10/11/2014, 10/11/2014 INFLUENZA VACCINE (#1) 2025 Procedures Procedure Name Priority Date/Time Associated Diagnosis Comments HEMOGLOBIN AND HEMATOCRIT Routine 06/26/2025 3:45 PM CRYOLITE RECOVERY OPERATOR HEMOGLOBIN AND HEMATOCRIT Routine 06/26/2025 7:11 AM CRYOLITE RECOVERY OPERATOR BASIC METABOLIC PANEL Routine 06/26/2025 12:45 AM CRYOLITE RECOVERY OPERATOR HEMOGLOBIN AND HEMATOCRIT Routine 06/26/2025 12:45 AM CRYOLITE RECOVERY OPERATOR POC GLUCOSE Routine 06/25/2025 8:42 PM CRYOLITE RECOVERY OPERATOR HEMOGLOBIN AND HEMATOCRIT Routine 06/25/2025 4:02 PM CRYOLITE RECOVERY OPERATOR HEMOGLOBIN AND HEMATOCRIT Routine 06/25/2025 7:46 AM CRYOLITE RECOVERY OPERATOR BASIC METABOLIC PANEL Routine 06/25/2025 1:24 AM CRYOLITE RECOVERY OPERATOR HEMOGLOBIN AND HEMATOCRIT Routine 06/25/2025 1:24 AM CRYOLITE RECOVERY OPERATOR POC GLUCOSE Routine 06/24/2025 9:52 PM CRYOLITE RECOVERY OPERATOR HEMOGLOBIN AND HEMATOCRIT Routine 06/24/2025 6:44 PM CRYOLITE RECOVERY OPERATOR URINALYSIS W/REFLEX MICROSCOPIC Routine 06/24/2025 4:25 PM CRYOLITE RECOVERY OPERATOR URINE CULTURE Routine 06/24/2025 4:25 PM CRYOLITE RECOVERY OPERATOR VERIFICATION BLOOD GROUP Stat 06/24/2025 1:45 PM CRYOLITE RECOVERY OPERATOR Encounter for blood typing TYPE AND SCREEN Routine 06/24/2025 11:15 AM CRYOLITE RECOVERY OPERATOR PROTIME-INR Routine 06/24/2025 11:15 AM CRYOLITE RECOVERY OPERATOR COMPREHENSIVE METABOLIC PANEL Routine 06/24/2025 11:15 AM CRYOLITE RECOVERY OPERATOR CBC WITHOUT DIFFERENTIAL Routine 06/24/2025 11:15 AM CRYOLITE RECOVERY OPERATOR from Last 3 Months Results * (ABNORMAL) HEMOGLOBIN AND HEMATOCRIT (06/26/2025 3:45 PM CRYOLITE RECOVERY OPERATOR) Only the most recent of7 resultswithin the time period is included. HEMOGLOBIN 10.0(L) 13.6 - 16.5 g/dL 06/26/2025 4:19 PM CRYOLITE RECOVERY OPERATOR [facility] LABORATORY [facility] HEMATOCRIT 30.9(L) 40.0 - 48.0 % 06/26/2025 4:19 PM CRYOLITE RECOVERY OPERATOR [facility] Blood Venipuncture / Unknown 06/26/2025 3:45 PM CRYOLITE RECOVERY OPERATOR 06/26/2025 4:14 PM CRYOLITE RECOVERY OPERATOR us Socorro Casey MD HEMATOLOGY ORDERABLES Final Resu lt [facility] [employer] [facility] KARLEY# [id number] [address] [facility] [address] [id number] * (ABNORMAL) BASIC METABOLIC PANEL (06/26/2025 12:45 AM CRYOLITE RECOVERY OPERATOR) Only the most recent of2 resultswithin the time period is included. SODIUM 136 136 - 145 mmol/L 06/26/2025 1:24 AM [facility] [employer] [facility] POTASSIUM 3.6 3.5 - 5.0 mmol/L 06/26/2025 1:24 AM [facility] [employer] [facility] CHLORIDE 103 98 - 107 mmol/L 06/26/2025 1:24 AM [facility] [place] [employer] [facility] CO2 28 22 - 29 mmol/L 06/26/2025 1:24 AM [facility] [place] [employer] [facility] CALCIUM 9.1 8.6 - 10.2 mg/dL 06/26/2025 1:24 AM [facility] [place] [employer] [facility] BUN 17 8 - 23 mg/dL 06/26/2025 1:24 AM [facility] [place] [employer] [facility] CREATININE 1.38(H) 0.67 - 1.17 mg/dL 06/26/2025 1:24 AM [facility] [place] [employer] [facility] GLUCOSE 129(H) 74 - 99 mg/dL 06/26/2025 1:24 AM [facility] [place] [employer] [facility] GFR 56(L) >=60 mL/min/1.7 3 sq meter 06/26/2025 1:24 AM [facility] [employer] [facility] Comment:eGFR calculated with 2020 CKD-EPI equation. Vegetarian diet, extremely high or low muscle mass, and may affect results. Cystatin C with Glomerular Filtration Rate is a suitable alternative for these patients. ANION GAP 5(L) 8 - 16 mmol/L 06/26/2025 1:24 AM [facility] [employer] [facility] Blood Venipuncture / Unknown 06/26/2025 12:45 AM CRYOLITE RECOVERY OPERATOR 06/26/2025 12:58 AM CRYOLITE RECOVERY OPERATOR Socorro Casey MD CHEMISTRY ORDERABLES Final Resul t Performing Organization Address [facility]/ZIP Co de Phone Number [facility] CLIA# [id number] [address] [place] [address] * (ABNORMAL) POC GLUCOSE (06/25/2025 8:42 PM CRYOLITE RECOVERY OPERATOR) Only the most recent of2 resultswithin the time period is included. GLUCOSE POC 147(H) 74 - 99 mg/dL 06/25/2025 8:42 PM CRYOLITE RECOVERY OPERATOR [facility] [employer] [facility] SPECIMEN SOURCE, GLUCOSE POC Whole Blood 06/25/2025 8:42 PM CRYOLITE RECOVERY OPERATOR [facility] [employer] [facility] Blood, whole 06/25/2025 8:42 PM CRYOLITE RECOVERY OPERATOR 06/25/2025 9:49 PM CRYOLITE RECOVERY OPERATOR us Oleg Lunsford MD POINT OF CARE TESTING Final Resu lt Performing Organization Address City/[facility]/ZIP Co de Phone Number [facility] [employer] [facility] CLIA# [id number] [address] [place] [address] * (ABNORMAL) URINALYSIS WITH REFLEX MICROSCOPIC (06/24/2025 4:25 PM CRYOLITE RECOVERY OPERATOR) COLOR UA Blood Tinged(A) Pale to Dark Yellow 06/24/2025 5:00 PM CRYOLITE RECOVERY OPERATOR [facility]ORATORY SERVICES [facility] CLARITY UA Cloudy(A) Clear 06/24/2025 5:00 PM CRYOLITE RECOVERY OPERATOR [employer] LABORATORY SERVICES [facility] SPECIFIC GRAVITY UA 1.015 1.003 - 1.035 06/24/2025 5:00 PM CRYOLITE RECOVERY OPERATOR [employer] [facility]ORY [facility] PH UA 7.0 5.0 - 8.0 06/24/2025 5:00 PM CRYOLITE RECOVERY OPERATOR [facility] LABORATORY SERVICES [facility] LEUKOCYTE ESTERASE UA 3+(A) Negative 06/24/2025 5:00 PM [facility] NITRITE UA Negative Negative 06/24/2025 5:00 PM [facility] PROTEIN UA 2+(A) Negative 06/24/2025 5:00 PM [facility] GLUCOSE UA Negative Negative 06/24/2025 5:00 PM [facility] KETONES UA Negative Negative 06/24/2025 5:00 PM [facility] UROBILINOGEN UA Normal <2.0 mg/dL 5:00 PM [facility] BILIRUBIN UA Negative Negative 06/24/2025 5:00 PM [facility] BLOOD UA 3+(A) Negative 06/24/2025 5:00 PM [facility] WBC UA >100(A) 0 - 2 /hpf 06/24/2025 5:00 PM [facility] RBC UA >100(A) 0 - 2 /hpf 06/24/2025 5:00 PM [facility] BACTERIA UA 1+(A) Negative /hpf 06/24/2025 5:00 PM [facility] WBC CLUMPS Present(A) Absent 06/24/2025 5:00 PM [facility] [place] [employer] [facility] Urine URINE SPECIMEN OBTAINED BY CLEAN CATCH PROCEDURE / Unknown Collection / Unknown 06/24/2025 4:25 PM CRYOLITE RECOVERY OPERATOR 06/24/2025 4:25 PM CRYOLITE RECOVERY OPERATOR us Socorro Casey MD URINE ORDERABLES Final Result [facility] CLIA# [id number] [address] [place] [address] * URINE CULTURE (06/24/2025 4:25 PM CRYOLITE RECOVERY OPERATOR) CULTURE Polymicrobial growth consistent with normal urethral baldemar and/or colonizing bacteria 06/25/2025 2:54 PM CRYOLITE RECOVERY OPERATOR [facility] [employer] [facility] Urine URINE SPECIMEN OBTAINED BY CLEAN CATCH PROCEDURE / Unknown Collection / Unknown 06/24/2025 4:25 PM CRYOLITE RECOVERY OPERATOR 06/24/2025 4:25 PM CRYOLITE RECOVERY OPERATOR Socorro Casey MD MICROBIOLOGY - GENERAL ORDERABLE S Final Result Performing Organization Address [facility]/ZIP Co de Phone Number [facility] LABORATORY SERVICES - [facility] CLSHANTELLE# [id number] [address] [place] [address] * VERIFICATION BLOOD GROUP (06/24/2025 1:45 PM CRYOLITE RECOVERY OPERATOR) ABO GROUP O 06/24/2025 2:53 PM CRYOLITE RECOVERY OPERATOR [employer] LABORATORY SERVICES -- [facility] RH (D) TYPE Positive 06/24/2025 2:53 PM CRYOLITE RECOVERY OPERATOR [facility] [employer] LAB[facility]ORY SERVICES -- [facility] Blood Venipuncture / Unknown 06/24/2025 1:45 PM CRYOLITE RECOVERY OPERATOR 06/24/2025 2:01 PM CRYOLITE RECOVERY OPERATOR Kelly Ruiz MD BLOOD BANK ORDERABLES Final Result Performing Organization Address City/[facility]/ZIP Co de Phone Number [facility] [employer] [facility] CLSHANTELLE# [id number] [address] [place] [address] * PROTIME-INR (06/24/2025 11:15 AM CRYOLITE RECOVERY OPERATOR) PROTIME 14.0 12.7 - 15.1 Seconds 06/24/2025 11:48 AM CRYOLITE RECOVERY OPERATOR [facility] LABORATORY SERVICES - [facility] INR 1.1 0.9 - 1.1 06/24/2025 11:48 AM CRYOLITE RECOVERY OPERATOR [employer] LABORATORY SERVICES - [facility] Blood Venipuncture / Unknown 06/24/2025 11:15 AM CRYOLITE RECOVERY OPERATOR 06/24/2025 11:21 AM CRYOLITE RECOVERY OPERATOR Narrative [facility] LAB[facility]ATORY SERVICES - [facility] - 06/24/2025 11:48 AM CRYOLITE RECOVERY OPERATOR INR Therapeutic Range: Adult: 2.0 - 3.0 for pulmonary embolism or prophylaxis against venous thrombosis or systemic embolization. 2.0 - 3.0 for patients with tissue heart valves. 2.5 - 3.5 for patients with mechanical heart valves or post NH. Pediatric (12 years and under): 1.5 - 3.0 Although the target range in children is not well established, INR values of 1.5 - 3.0 are recommended for most patients. Higher values have been used in children with prosthetic cardiac valves and hereditary clotting disorders. (<3 days) therapeutic ranges have not been established. us Socorro Casey MD HEMATOLOGY ORDERABLES Final Resu lt [employer] LABORATORY SERVICES - [facility]# [id number] [address] [facility] [place] [address] * (ABNORMAL) CBC WITHOUT DIFFERENTIAL (06/24/2025 11:15 AM CRYOLITE RECOVERY OPERATOR) WBC 15.3(H) 4.0 - 9.8 K/uL 06/24/2025 11:40 AM [facility]AT[facility] SERVICES [facility] RBC 4.16(L) 4.50 - 5.40 M/uL 06/24/2025 11:40 AM [facility] - [facility] HEMOGLOBIN 11.2(L) 13.6 - 16.5 g/dL 06/24/2025 11:40 AM [facility] - [facility] HEMATOCRIT 35.2(L) 40.0 - 48.0 % 06/24/2025 11:40 AM [facility] MCV 84.6 82.0 - 99.0 fL 06/24/2025 11:40 AM CRYOLITE RECOVERY OPERATOR [employer] LABORATORY SERVICES - [facility] MCH 26.9(L) 27.2 - 32.6 pg 06/24/2025 11:40 AM [facility] - [facility] MCHC 31.8 31.5 - 35.5 g/dL 06/24/2025 11:40 AM [facility] - [facility] PLATELETS 326 140 - 350 K/uL 06/24/2025 11:40 AM [facility] - [facility] MPV 9.5 9.3 - 12.4 fL 06/24/2025 11:40 AM [facility] - [facility] RDW 14.0 11.5 - 14.5 % 06/24/2025 11:40 AM [facility] - [facility] RDW-STDEV 42.5 37.1 - 48.7 fL 06/24/2025 11:40 AM [facility] - [facility] Blood Venipuncture / Unknown 06/24/2025 11:15 AM CRYOLITE RECOVERY OPERATOR 06/24/2025 11:21 AM CRYOLITE RECOVERY OPERATOR Socorro Casey MD HEMATOLOGY ORDERABLES Final Resu lt [facility] [employer] SERVICES - [facility] CLIA# [id number] [address] [place] [address] * TYPE AND SCREEN (06/24/2025 11:15 AM CRYOLITE RECOVERY OPERATOR) ABO GROUP O 06/24/2025 12:24 PM CRYOLITE RECOVERY OPERATOR [employer] LABORATORY SERVICES -- [facility] RH (D) TYPE Positive 06/24/2025 12:24 PM CRYOLITE RECOVERY OPERATOR [employer] LABORATORY SERVICES -- [facility] ANTIBODY SCREEN Negative 06/24/2025 12:24 PM [facility] [employer] LABORATORY SERVICES -- [facility] Blood Venipuncture / Unknown 06/24/2025 11:15 AM CRYOLITE RECOVERY OPERATOR 06/24/2025 11:21 AM CRYOLITE RECOVERY OPERATOR Socorro Casey MD BLOOD BANK ORDERABLES Edited Res ult - Final [facility] LABORATORY SERVICES -- [facility] CLIA# [id number] [address] [place] [address] * (ABNORMAL) COMPREHENSIVE METABOLIC PANEL (06/24/2025 11:15 AM CRYOLITE RECOVERY OPERATOR) SODIUM 137 136 - 145 mmol/L 06/24/2025 12:04 PM CRYOLITE RECOVERY OPERATOR [employer] LABORATORY SERVICES - [facility] POTASSIUM 4.3 3.5 - 5.0 mmol/L 06/24/2025 12:04 PM CRYOLITE RECOVERY OPERATOR [employer] LABORATORY SERVICES - [facility] CHLORIDE 103 98 - 107 mmol/L 06/24/2025 12:04 PM [facility] [place] [facility] - . [facility] CO2 27 22 - 29 mmol/L 06/24/2025 12:04 PM [facility] [place]ATORY [facility] - . [facility] CALCIUM 9.4 8.6 - 10.2 mg/dL 06/24/2025 12:04 PM [facility] [place] [facility]ORY [facility] - . [facility] BUN 14 8 - 23 mg/dL 06/24/2025 12:04 PM [facility]ATORY [facility] - . [facility] CREATININE 1.17 0.67 - 1.17 mg/dL 06/24/2025 12:04 PM [facility] [place]ATORY [facility] - . [facility] GLUCOSE 126(H) 74 - 99 mg/dL 06/24/2025 12:04 PM [facility] [facility] TOTAL PROTEIN 6.8 6.7 - 8.6 g/dL 06/24/2025 12:04 PM [facility] ALBUMIN 3.2(L) 3.5 - 5.2 g/dL 06/24/2025 12:04 PM [facility] BILIRUBIN TOTAL 0.4 0.0 - 1.1 mg/dL 06/24/2025 12:04 PM [facility] LABORATORY [facility] ALKALINE PHOSPHATASE 102 40 - 129 U/L 06/24/2025 12:04 PM [facility] [place] [facility] AST 12 <41 U/L 06/24/2025 12:04 PM [facility] [place] [facility] ALT 9 <42 U/L 06/24/2025 12:04 PM [facility] GFR >60 >=60 mL/min/1.7 3 sq meter 06/24/2025 12:04 PM [facility] [employer] LABORATORY [facility] Comment:eGFR calculated with 2020 CKD-EPI equation. Vegetarian diet, extremely high or low muscle mass, and may affect results. Cystatin C with Glomerular Filtration Rate is a suitable alternative for these patients. ANION GAP 7(L) 8 - 16 mmol/L 06/24/2025 12:04 PM [facility] [employer] LABORATORY [facility] Blood Venipuncture / Unknown 06/24/2025 11:15 AM CRYOLITE RECOVERY OPERATOR 06/24/2025 11:21 AM CRYOLITE RECOVERY OPERATOR Narrative [facility] LABORATORY [facility] - 06/24/2025 12:04 PM CRYOLITE RECOVERY OPERATOR Samples containing indocyanine green cause interferences on Total and/or Direct Bilirubin and must not be measured. us Socorro Casey MD CHEMISTRY ORDERABLES Final Resul t [facility] LABORATORY SERVICES [facility] CLIA# [id number] [address] [address] from Last 3 Months Insurance MEDICARE PART A AND B MEDICAID [place] Advance Directives For more information, please contact: [phone] * NO CPR (In Event of Cardiopulmonary Arrest) (Latest Code Status on File) Date Activated Date Inactivated Comments 06/24/2025 11:04 AM 06/26/2025 7:43 PM Question Answer Comments Mechanical Ventilation (for respiratory distress) - Invasive (i.e. intubation): No Mechanical Ventilation (for respiratory distress) - Non-Invasive (i.e. BiPAP, CPAP): Yes Care Teams Medical Information Officer Relationship Specialty Start Date End Date Emmanuel Graff DO [address] [place] [address] PCP - General Family Practice 06/26/25
== END 2025-07-03 10:34 | disposition home or self-care (01) ==
LOC: CHSLAB 09-01 10:35
PROVIDERS: Visit Provider Family Medicine
DX: N39.0 Urinary tract infection, site not specified (principal); E11.9 Type 2 diabetes mellitus without complications
CPT/HCPCS: 81001; 87077; 87086; 87088; 87186